=== PATIENT | male | born 1960 | race Caucasian/White ===

== ENCOUNTER 2023-01-06 08:57 | Outpatient (OUT) | payer OTHER, SELFPAY ==
[2023-01-06 09:20] LABS: Bilirubin Urine SMALL (NEGATIVE); Blood Urine LARGE (NEGATIVE); Clarity Urine CLEAR (CLEAR); Color Urine YELLOW (YELLOW); Glucose Urine UA >=1000 mg/dL (NEGATIVE); Ketones Urine >=80 mg/dL (NEGATIVE); Leukocyte Esterase Urine NEGATIVE (NEGATIVE); Nitrite Urine NEGATIVE (NEGATIVE); Protein Urine >=300 mg/dL (NEG/TRACE); Specific Gravity Urine >=1.030 (1.005-1.025); Urobilinogen Urine 0.2 EU/dL (0.2-1.0); pH Urine 5.5 (5.0-9.0)
[2023-01-06 09:21] LABS: Urine Microscopic Indicated YES
[2023-01-06 09:41] LABS: Basophils Absolute Auto 0.1 10^3/uL (0.0-0.1); Basophils Percent Auto 0.4 % (0.2-2.0); Eosinophils Absolute Auto 0.1 10^3/uL (0.0-0.7); Eosinophils Percent Auto 1.1 % (0.9-7.0); Hematocrit 50.5 % (42.0-54.0); Hemoglobin 17.6 g/dL (14.0-18.0); Immature Granulocytes Abs Auto 0.13 10^3/uL (0.00-0.03); Immature Granulocytes Pct Auto 1.1 % (0.0-0.5); Lymphocytes Absolute Auto 2.2 10^3/uL (1.2-3.8); Lymphocytes Percent Auto 18.5 % (20.5-60.0); Mean Corpuscular HGB Conc 34.9 g/dL (29.9-35.2); Mean Corpuscular Hemoglobin 32.1 pg (25.9-34.0); Mean Corpuscular Volume 92.2 fL (80.0-94.0); Mean Platelet Volume 9.6 fL (9.5-13.5); Monocytes Percent Auto 8.3 % (1.7-12.0); Neutrophils Absolute Auto 8.5 10^3/uL (1.4-6.5); Neutrophils Percent Auto 70.6 % (43.0-75.0); Platelet Count 279 10^3/uL (150-450); Red Blood Count 5.48 10^6/uL (4.70-6.10); Red Cell Distribution Width 12.1 % (11.0-15.0)
[2023-01-06 09:42] LABS: Bacteria Urine NONE SEEN #/HPF (NONE SEEN); WBC Urine 0-2 #/HPF (NONE SEEN)
[2023-01-06 09:43] LABS: Cast Seen? NONE SEEN #/LPF (NONE SEEN); Crystals Seen? None Seen #/HPF (None Seen); Mucus Urine NONE SEEN (NONE SEEN); Squamous Epithelial Cell Urine RARE #/LPF (NONE/RARE); Urine Culture Indicated NO
[2023-01-06 10:53] LABS: Alanine Aminotransferase 32 U/L (16-63); Albumin Globulin Ratio 0.7; Albumin Level 3.2 g/dL (3.4-5.0); Alkaline Phosphatase 103 U/L (46-116); Anion Gap 13.5; Aspartate Amino Transferase 13 U/L (15-37); BUN Creatinine Ratio 17.3; Bilirubin Total 0.5 mg/dL (0.2-1.0); Calcium 8.6 mg/dL (8.5-10.1); Carbon Dioxide 26.3 mmol/L (21.0-32.0); Chloride 98 mmol/L (98-107); Chol HDL Ratio 3.8; Cholesterol 184 mg/dL (<=200); Estimated GFR (African America >60 (>=60); Estimated GFR (Non-African Ame >60 (>=60); Globulin 4.4 g/dL; Glucose 262 mg/dL (74-106); HDL Cholesterol 48 mg/dL (40-60); LDL Cholesterol Calculated 120.6 mg/dL; Potassium 3.8 mmol/L (3.5-5.1); Sodium 134 mmol/L (136-145); Total Protein 7.6 g/dL (6.4-8.2); Triglycerides 77 mg/dL (<=150); VLDL CHOLESTEROL 15.4 mg/dL
[2023-01-06 11:08] LABS: Prostate Specific Antigen Scrn 1.03 ng/mL (<=4.00)
[2023-01-06 13:12] LABS: Estimated Average Glucose 263 mg/dL; Glycohemoglobin A1C 10.8 % (4.5-6.2)
== END 2023-01-06 08:58 | disposition home or self-care (01) ==
LOC: LAB 09:00
PROVIDERS: PCP Nurse Practitioner; Visit Provider Nurse Practitioner
DX: I10 Essential (primary) hypertension (principal); J44.9 Chronic obstructive pulmonary disease, unspecified; R10.9 Unspecified abdominal pain; Z12.5 Encounter for screening for malignant neoplasm of prostate; R73.9 Hyperglycemia, unspecified
CPT/HCPCS: 36415; 80053; 80061; 81001; 83036; 85025; G0103

== ENCOUNTER 2023-01-30 08:01 | Outpatient (OUT) | payer OTHER, SELFPAY ==
--- NOTE | 2023-01-30 08:04 | CT_ITS ---
[address] [address] Patient Name: VELMA AKHTAR MRN: [id number] date: 1960 Sex: M Assigned Patient Location: CT Current Patient Location: Accession/Order Number: [id number] Exam Date: 01/30/2023 08:06 Report Date: 01/31/2023 00:25 At the request of: ANI GUTIERREZ Procedure: CT lung screening low-dose EXAMINATION: CT lung screening low-dose HISTORY: Nicotine Dependence F17.210 COMPARISON: CT abdomen pelvis 03/03/2020, 04/10/2018 TECHNIQUE: Axial, Coronal, and Sagittal images were created without the administration of IV contrast material. Dose reduction techniques were achieved by using automated exposure control and/or adjustment of mA and/or kV according to patient size and/or use of iterative reconstruction technique. FINDINGS: LUNGS: 8 mm nodule within posterior lateral left costophrenic angle. No acute infiltrates, bronchiectasis, or significant chronic interstitial changes. PLEURA: No mass, effusion, or pneumothorax. VASCULATURE: No abnormality. MAKENZIE: No mass or pathologic adenopathy. MEDIASTINUM: No mass or pathologic adenopathy. CARDIAC: No enlargement, pericardial thickening, or significant calcification. AORTA: No aneurysm or dissection. CHEST WALL: No mass or axillary adenopathy BONES: No bone lesion or fracture. LIMITED ABDOMEN: No suspicious findings. Limited images of the upper abdomen. OTHER: Negative. CT/CT lung screening low-dose IMPRESSION: 1. Lung-RADS Category 4A- Suspicious. Findings for which additional diagnostic testing and/ or tissue sampling is recommended. 3 month LDCT; PET/CT may be used when there is a >= 8 mm solid component. 2. New 8 mm nodule within posterior lateral left costophrenic angle. This barely meets lower limits for PET imaging. Follow-up CT in 3 months is recommended; any increase in size at that time should prompt PET imaging. Electronically authenticated by: HEATHER HOBBS Date: 01/31/2023 00:25
--- NOTE | 2023-01-30 10:06 | RT_ITS ---
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 Findings were considered accurate and reproducible. Both pre- and post-bronchodilator values utilized for spirometry. Spirometry (based on pre-bronchodilator values): -FEV1/FVC: Reduced @ 61% -FEV1: Moderately reduced @ 72% -FVC: Normal @ 90% -There is no significant bronchodilator response. Lung volumes by plethysmography (based on pre-bronchodilator values): -RV: Increased @ 159% -TLC: Normal @ 115% -Airway resistance: Increased -Airway conductance: Decreased Diffusion capacity: -DLCO: Normal @ 94% when corrected for Hb 17.6g/dL Flow-volume loop: -Moderate obstructive pattern -Flattening of inspiratory limb pre-bronchodilator which improves post-bronchodilator Flow-pressure loop: ???Asthmatic pattern Impressions: -Spirometry suggests moderate obstruction. There is no bronchodilator response. An elevated RV suggests air trapping. The diffusion capacity is normal. Flattening of inspiratory limb could suggest a variable extrathoracic obstruction or simply due to difficulty following instructions/poor effort. Elevated hemoglobin suggests polycythemia. This study may respresent asthma-COPD overlap, or asthma with loss of a bronchodilator response. Clinical correlation required. Electronically Signed On 01-30-2023 17:05:32 EST by Derrell Rebolledo
[2023-01-30] MEDS: ALBUTEROL SULFATE 2.5 MG/3 ML VIAL NEB IH (10:23)
== END 2023-01-30 08:02 | disposition home or self-care (01) ==
LOC: CT 08:01
PROVIDERS: PCP Nurse Practitioner; Visit Provider Nurse Practitioner
DX: F17.210 Nicotine dependence, cigarettes, uncomplicated (principal); R91.1 Solitary pulmonary nodule
CPT/HCPCS: 71271; 94060; 94726; 94729; 99406

== ENCOUNTER 2023-04-14 07:16 | Outpatient (OUT) | payer OTHER, SELFPAY ==
--- OUTSIDE RECORDS SUMMARY | 2023-04-14 07:19 | XMS_ITS | CCD ---
Author Name Unknown Address [address] [place] [address] Organization [facility] Care Team Providers Care Mathematical Engineering Technician Name Role Phone AICHHOLZ, TILLER WORKER NILDA Admitting Unavailable AICHHOLZ, TILLER WORKER NILDA Attending Unavailable AICHHOLZ, TILLER WORKER NILDA Consulting Unavailable AICHHOLZ, TILLER WORKER NILDA Primary Care Unavailable AICHHOLZ, TILLER WORKER NILDA Primary Care Unavailable AICHHOLZ, TILLER WORKER NILDA Consulting Unavailable AICHHOLZ, TILLER WORKER NILDA Admitting Unavailable AICHHOLZ, TILLER WORKER NILDA Attending Unavailable AICHHOLZ, TILLER WORKER NILDA Admitting Unavailable AICHHOLZ, TILLER WORKER NILDA Attending Unavailable AICHHOLZ, TILLER WORKER NILDA Consulting Unavailable AICHHOLZ, TILLER WORKER NILDA Primary Care Unavailable RAFAELEBER, DR HEATHER Wagner Consulting Unavailable AICHHOLZ, TILLER WORKER NILDA Admitting Unavailable AICHHOLZ, TILLER WORKER NILDA Attending Unavailable AICHHOLZ, TILLER WORKER NILDA Primary Care Unavailable AICHHOLZ, TILLER WORKER NILDA Consulting Unavailable AICHHOLZ, TILLER WORKER NILDA Primary Care Unavailable NILL, DR ALEXANDER Consulting Unavailable NILL, DR ALEXANDER Admitting Unavailable NILL, DR ALEXANDER Attending Unavailable ZIEBER, DR HEATHER Wagner Consulting Unavailable REQUEST, DR LLANES LISTED Primary Care Unavaila ble NAIF LOMAX Admitting Unavailable NAIF LOMAX Attending Unavailable DAMI, NAIF Consulting Unavailable AICHHOLZ, TILLER WORKER NILDA Primary Care Unavailable NILL, DR ALEXANDER Consulting Unavailable NILL, DR ALEXANDER Admitting Unavailable NILL, DR ALEXANDER Attending Unavailable MILKA STEPHENS Consulting Unavailable AICHHOLZ, TILLER WORKER NILDA Primary Care Unavailable SHAIKH GALE Consulting Unavailable SHAIKH GALE Admitting Unavailable SHAIKH GALE Attending Unavailable Verna Ordoñez Unavailable NILDA CHEEMA Attending Unavailable NILDA CHEEMA Attending Unavailable Medications Current Medications Medication Drug Class(es) Dates Sig (Normalized) Sig (Original) [id number] 200 actuat albuterol 0.09 mg/actuat metered dose inhaler (1 source) beta2-Adrenergic Agonist Start: 12-03-2022 take 2 puff(s) by inhalation every four hours as needed for wheezing Albuterol Sulfate HFA 108 (90 Base) MCG/ACT 2 puffs Inhalation every 4 hrs prn SOB, wheezing for 15 days Nov, Active azithromycin 250 mg oral tablet (1 source) Macrolide Antimicrobial Start: 12-03-2022 Azithromycin 250 MG 2 tablet on first day, 1 tablet daily for 4 days Orally daily for 5 days Nov, Active predniSONE 20 mg oral tablet (1 source) Start: 12-03-2022 predniSONE 20 MG take 2 tabs po daily x 5 days Orally Once a day for 5 days Nov, Active Problems Active Problems Problem Classification Problem Date Documented Date Episodic/Chronic Chronic obstructive pulmonary disease and bronchiectasis (3 sources) Chronic obstructive pulmonary disease, unspecified; Translations: [Acute exacerbation of chronic obstructive airways disease] Onset: 04-18-2020 Chronic Diverticulosis and diverticulitis (5 sources) Diverticulosis of large intestine without perforation or abscess without bleeding; Translations: [Diverticulitis of intestine, part unspecified, without perforation or abscess without bleeding] Onset: 03-03-2020 Chronic Substance-related disorders (1 source) Nicotine dependence, cigarettes, uncomplicated; Translations: [NICOTINE DEPEND CIGARETTES UNCOMP] Onset: 01-11-2021 Chronic Unclassified (3 sources) LOW BACK PAIN, UNSPECIFIED; Translations: [LOW BACK PAIN, UNSPECIFIED] Onset: 01-11-2021 Unclassified (1 source) CONTACT W/AND (SUSP) EXPOS COVID-19; Translations: [CONTACT W/AND (SUSP) EXPOS COVID-19] Onset: 04-13-2020 Past or Other Problems Problem Classification Problem Date Documented Da te Episodic/Chronic Diabetes mellitus without complication (4 sources) Hyperglycemia, unspecified; Translations: [HYPERGLYCEMIA UNSPECIFIED] Onset: 07-17-2020 Episodic Gastrointestinal hemorrhage (5 sources) Hemorrhage of anus and rectum; Translations: [HEMORRHAGE OF ANUS AND RECTUM] Onset: 03-06-2020 Episodic Other and unspecified benign neoplasm (1 source) Benign neoplasm of rectosigmoid junction; Translations: [BENIGN NEOPLASM RECTOSIGMOID JUNCT] Onset: 04-18-2020 Episodic Other and unspecified benign neoplasm (1 source) Benign neoplasm of ascending colon; Translations: [BENIGN NEOPLASM OF ASCENDING COLON] Onset: 04-18-2020 Episodic Other and unspecified benign neoplasm (1 source) Benign neoplasm of descending colon; Translations: [BENIGN NEOPLASM OF DESCENDING COLON] Onset: 04-18-2020 Episodic Other and unspecified benign neoplasm (1 source) Benign neoplasm of cecum; Translations: [BENIGN NEOPLASM OF CECUM] Onset: 04-18-2020 Episodic Other and unspecified benign neoplasm (1 source) Polyp of colon; Translations: [POLYP OF COLON] Onset: 04-18-2020 Episodic Other gastrointestinal disorders (1 source) Change in bowel habit; Translations: [CHANGE IN BOWEL HABIT] Onset: 04-18-2020 Episodic Residual codes; unclassified (1 source) Family history of malignant neoplasm of digestive organs; Translations: [FAM HX MALIG NEOPLASM DIGESTIV ORGN] Onset: 04-18-2020 Episodic Unclassified (1 source) LOW BACK PAIN, UNSPECIFIED; Translations: [LOW BACK PAIN, UNSPECIFIED] Onset: 01-09-2021 Results Test Name Value Interpretation Reference Range Facility XR LSPINE 2_3 VIEWSon 2020 XR LSPINE 2_3 VIEWS EXAMINATION: XR LSPINE 2_3 VIEWS HISTORY: Pain ; chronic lumbar pain with intermittent numbness and tingling of legs COMPARISON: No relevant comparison available. FINDINGS: BONES: No fracture or spondylolisthesis. Moderate degenerative facet arthropathy L4-L5, L5-S1. DISC SPACES: Minimal narrowing L3 on 4, L5-S1. PARASPINOUS: Atherosclerotic disease of aorta without visible aneurysm. OTHER: Negative. IMPRESSION: 1. Mild degenerative disc disease and moderate degenerative facet arthropathy. Consider MRI for further evaluation. Electronically authenticated by: HEATHER HOBBS Date: 2021-01-09 11:33 Normal [facility] GLYCOHEMOGLOBIN A1Con 2020 ADA RECOMMENDATION ADA THERAPEUTIC TARGET 6.0 - 7.0 ACTION SUGGESTED > 7.0 Normal [facility] Comment on above: Performed By: #### A 1C #### [facility] [address] [place], [place] [address] Edward Fajardo Glucose [Mass/Vol] 123 mg/dL Normal [facility] Comment on above: Performed By: #### A 1C #### [facility] [address] [place], [place] [address] Edward Fajardo HbA1c (Bld) [Mass fraction] 5.9 % Normal <=6.0 [facility] Comment on above: Performed By: #### A 1C #### [facility] [address] [place], [place] [address] Edward Fajardo Ambulatory Clinical Summaryo n 04-19-2020 Ambulatory Clinical Summary {[id number] Normal [facility] General Surgery Office/Clini c Noteon 04-19-2020 General Surgery Office/Clinic Note HPI Staff One week follow up to discuss colonoscopy and pathology results. Complains of continued rectal bleeding and pain but states it has subsided since procedure. History of Present Illness s/p colonoscopy, found diverticulosis of desc/sigmoid colon, moderate; 7 polyps, largest approximately 2 cm; tubular adenomata and serrated adenoma; doing well, mild LLG pain and some blood in stools. Review of Systems ROS - Provider Constitutional: no fever, no sweats, no weight loss. Eyes: no glasses, no blurred vision, no visual loss. ENMT: no dentures, no hoarseness, no swallowing difficulties, no hearing loss, no ear infection(s), no nose bleeds. Cardiovascular: high blood pressure, no chest pain, regular heartbeat, no heart murmur. Respiratory: no shortness of breath, no cough, no asthma, no wheezing. Gastrointestinal: no nausea, no vomiting, no diarrhea, no constipation, mild blood in stool, no change in bowel habits, mild abdominal pain, no hepatitis. Genitourinary: no kidney stones, no urine infection, no dysuria. Musculoskeletal: no pain, no weakness. Skin: no changing moles, no rash, no skin lumps. Neurologic: no seizures, no epilepsy, no headache. Psychiatric: no emotional or psychiatric problem. Heme/Lymph: no bleeding problems, no anemia, no blood clots, no transfusions. Allergy/Immunologic: no swollen lymph nodes/glands, no IV drug abuse. Other: Additional ROS info: Except as noted in the above Review of Systems and in the History of Present Illness, all other systems have been reviewed and are negative or noncontributory. Assessment/Plan 1. Tubular adenoma of colon, (D12.6: Benign neoplasm of colon, unspecified)Serrated adenoma of colon total of 7, plan follow up colonoscopy in 3 years, high fiber diet and daily fiber supplement; follow up colonoscopy in 3 years, call sooner if problems/questions. 3. Diverticulosis (K57.90: Diverticulosis of intestine, part unspecified, without perforation or abscess without bleeding) see # 1 Follow-up No qualifying data available Problem List/Past Medical History Ongoing Abdominal pain, LLQ Blood glucose elevated BRBPR (bright red blood per rectum) Change in bowel habits Chronic obstructive pulmonary disease Diverticulosis Elevated blood pressure reading without diagnosis of hypertension Frequent loose stools History of diverticulitis Serrated adenoma of colon Tobacco user Tubular adenoma of colon Historical No qualifying data Procedure/Surgical History Colonoscopy (04/12/2020), Repair of umbilical hernia. Medications No active medications Allergies No Known Allergies No Known Medication Allergies Social History Alcohol Current, Beer, Liquor, Daily, 03/28/2020 Substance Abuse Current, Marijuana, Daily, 03/28/2020 Tobacco 10 or more cigarettes (1/2 pack or more)/day in last 30 days Tobacco Use:., 04/19/2020 Family History Primary malignant neoplasm of colon: Father. Normal [facility] Comment on above: Result Comment: Elec tronically Signed By: JOSE STRONG, Benjamin Cohn\Date and Time Signed: 04/19/20 14:49 EST Outside Colonoscopyon 2020 Outside Colonoscopy [id number] .[id number]:127 Normal [facility] Pathology Noteon 04-14-2020 Pathology Note [id number] .[id number]:127 Normal [facility] Lab Reportson 04-10-2020 Lab Reports [id number]. 00CD:127 Normal [facility] Covid-19 PCR (CVDTBH)on 03-18 EUA Statement SEE BELOW Normal [facility] Comment on above: Result Comment: This test is not yet approved or cleared by the [place] FDA. When there are no FDA-approved or cleared tests available, and other criteria are met, FDA can make tests available under an emergency access mechanism called an Emergency Use Authorization (EUA). The EUA for this test is supported by the [place] of Health and Human Service?s (HHS?s) declaration that circumstances exist to justify the emergency use of in vitro diagnostics for the detection and/or diagnosis of the virus that causes COVID-19. This EUA will remain in effect (meaning this test can be used) for the duration of the COVID-19 declaration justifying emergency of IVDs, unless it is terminated or revoked by FDA (after which the test may no longer be used). When diagnostic testing is negative, the possibility of a false negative should be considered in the context of a patients recent exposures and the presence of clinical signs and symptoms consistent with SARS-CoV-2. Performed By: #### C VDTB #### [facility] [address] [place] [address] Edward Fajardo SARS-CoV-2 (COVID-19) RNA ADELFO+probe Ql (Unsp spec) Not detected Normal NOT DETECTED [facility] Comment on above: Result Comment: This test is not yet approved or cleared by the [place] FDA. When there are no FDA-approved or cleared tests available, and other criteria are met, FDA can make tests available under an emergency access mechanism called an Emergency Use Authorization (EUA). The EUA for this test is supported by the [place] of Health and Human Service's (HHS's) declaration that circumstances exist to justify the emergency use of in vitro diagnostics for the detection and/or diagnosis of the virus that causes COVID-19. This EUA will remain in effect (meaning this test can be used) for the duration of the COVID-19 declaration justifying emergency of IVDs, unless it is terminated or revoked by FDA (after which the test may no longer be used). Performed By: #### C VDTBH #### [facility] [address] [place], [place] [address] Edward Fajardo Facesheeton 03-30-2020 Facesheet [id number] .[id number]:127 Normal [facility] Consent for Procedure/Surger yon 03-29-2020 Consent for Procedure/Surgery [id number] .[id number]:127 Normal [facility] Ambulatory Clinical Summaryo n 03-28-2020 Ambulatory Clinical Summary {[id number]}CD:[id number] Normal [facility] General Surgery Office/Clini c Noteon 03-28-2020 General Surgery Office/Clinic Note Chief Complaint referral for abdominal pain HPI Staff 59 year old male presents on consultation from Nilda Cheema NP for LLQ abdominal pain with bloody loose stools. Some intermittent nausea, denies vomiting. CT abdomen/pelvis completed 03/03/20 with sigmoid diverticulosis. Has been treated for diverticulitis in the past, most recent being 2019. Father with history of colon cancer. Mother with history of partial colon removal, patient is unsure the reason. History of Present Illness 59 yo male with h/o tobacco abuse, htn, daily alcohol use; reports several month h/o intermittent LLQ pain, ache, crampy at times, follow by loose stools and BRBPR, occasional nausea, no emesis; normal formed stools in between these episodes; abd/pelvic ct scan 02/2020 with sigmoid diverticulosis; treated with antibiotics in January for possible diverticulitis flare up; had episode of sigmoid diverticulitis 03/2018, confirmed by abd/pelvic ct scan; no previous endoscopy; only abdominal operation umbilical hernia repair; denies asa or NSAID use; no SBE prophylaxis; fmhx of colon ca in patient's father, dx in his 70's; patient's mother had colon surgery, unsure of reason; smokes 1 ppd for many years; daily alcohol and marijuana use. Review of Systems PHQ Score Initial Depression Screen Score: 0 ROS - Provider Constitutional: no fever, no sweats, no weight loss. Eyes: no glasses, no blurred vision, no visual loss. ENMT: no dentures, no hoarseness, no swallowing difficulties, no hearing loss, no ear infection(s), no nose bleeds. Cardiovascular: high blood pressure, no chest pain, regular heartbeat, no heart murmur. Respiratory: no shortness of breath, no cough, no asthma, yes wheezing. Gastrointestinal: no nausea, no vomiting, moderate diarrhea, no constipation, moderate blood in stool, yes change in bowel habits, mild abdominal pain, no hepatitis. Genitourinary: no kidney stones, no urine infection, no dysuria. Musculoskeletal: no pain, no weakness. Skin: no changing moles, no rash, no skin lumps. Neurologic: no seizures, no epilepsy, no headache. Psychiatric: no emotional or psychiatric problem. Heme/Lymph: no bleeding problems, no anemia, no blood clots, no transfusions. Allergy/Immunologic: no swollen lymph nodes/glands, no IV drug abuse. Other: Additional ROS info: Except as noted in the above Review of Systems and in the History of Present Illness, all other systems have been reviewed and are negative or noncontributory. Physical Exam Vitals & Measurements HR: 80(Peripheral) RR: 16 BP: 166/98 HT: 177.8 cm HT: 177.8 cm WT: 109.6 kg WT: 109.6 kg BMI: 34.67 HEENT: normal conjunctiva, sclera clear, no scleral icterus, EOM intact, PERRLA, oral mucosa moist without lesions. Neck: trachea midline, no mass, symmetric, no thyromegaly or nodules, no adenopathy Respiratory: lungs expiratory wheezes, respirations non labored. Cardiovascular: regular rate and rhythm, no murmur, no pedal edema or varicosities. Gastrointestinal: soft, non distended, mild tenderness, epigastrium and LLQ, no periotoneal signs; no masses, no palpable hernias, diastasis recti no, no hepatosplenomegaly; normal bs Lymphatic: no cervical adenopathy, no axillary adenopathy, no inguinal adenopathy. Musculoskeletal: normal gait, digits and nails without infection, nodes, cyanosis, clubbing. Skin: no rashes, no lesions, no ulcers, no subcutaneous nodules, induration. Psychiatric/Neuro: oriented to time, place, person, judgement normal, affect appropriate for age, insight intact, no focal deficits. Tests: , x-rays reviewed, review of old records completed, Discussed surgical options, risks, and possible complications with patient. Assessment/Plan 1. Change in bowel habits (R19.4: Change in bowel habit) plan colonoscopy under anesthesia for further evaluation, informed consent obtained. !! 2. BRBPR (bright red blood per rectum) (K62.5: Hemorrhage of anus and rectum) see # 1 3. Frequent loose stools (R19.7: Diarrhea, unspecified) see # 1 4. Abdominal pain, LLQ (R10.32: Left lower quadrant pain) see # 1 5. BMI 34.0-34.9,adult (Z68.34: Body mass index [BMI] 34.0-34.9, adult) recommend diet and exercise 6. Tobacco user (Z72.0: Tobacco use) We strongly recommend to quit tobacco use. Cigarette smoking harms nearly every organ of the body, causes many diseases, and reduces the health of smokers in general. Quitting smoking lowers your risk for smoking-related diseases and can add years to your life. We encourage you to visit www.smokefree.gov access to helpful resources including free telephone support. If you decide on prescription treatment to help you quit, your family doctor would be happy to provide these. Follow-up No qualifying data available Patient Education Exercise to Lose Weight, Mcqm-sx-Ewwy Problem List/Past Medical History Ongoing Abdominal pain, LLQ Blood glucose elevated BRBPR (bright red blood per rectum) Change in bowel habits Chronic obstructive pulmonary disease Diverticulosis Elevated blood pressure reading without diagnosis of hypertension Frequent loose stools History of diverticulitis Tobacco user Historical No qualifying data Procedure/Surgical History Repair of umbilical hernia. Medications No active medications Allergies No Known Allergies No Known Medication Allergies Social History Alcohol Current, Beer, Liquor, Daily, 03/28/2020 Substance Abuse Current, Marijuana, Daily, 03/28/2020 Tobacco 10 or more cigarettes (1/2 pack or more)/day in last 30 days Tobacco Use:., 03/28/2020 Family History Primary malignant neoplasm of colon: Father. Normal [facility] Comment on above: Result Comment: Elec tronically Signed By: JOSE STRONG, Benjamin Hill.br\Date and Time Signed: 03/28/20 15:42 EST Patient Educationon 03-28-19 21 Patient Education Exercise to Lose Weight Exercise and a healthy diet may help you lose weight. Your doctor may suggest specific exercises. EXERCISE IDEAS AND TIPS ? Choose low-cost things you enjoy doing, such as walking, bicycling, or exercising to workout videos. ? Take stairs instead of the elevator. ? Walk during your lunch break. ? Park your car further away from work or school. ? Go to a gym or an exercise class. ? Start with 5 to 10 minutes of exercise each day. Build up to 30 minutes of exercise 4 to 6 days a week. ? Wear shoes with good support and comfortable clothes. ? Stretch before and after working out. ? Work out until you breathe harder and your heart beats faster. ? Drink extra water when you exercise. ? Do not do so much that you hurt yourself, feel dizzy, or get very short of breath. Exercises that burn about 150 calories: ? Running 1 ? miles in 15 minutes. ? Playing volleyball for 45 to 60 minutes. ? Washing and waxing a car for 45 to 60 minutes. ? Playing touch football for 45 minutes. ? Walking 1 ? miles in 35 minutes. ? Pushing a stroller 1 ? miles in 30 minutes. ? Playing basketball for 30 minutes. ? Raking leaves for 30 minutes. ? Bicycling 5 miles in 30 minutes. ? Walking 2 miles in 30 minutes. ? Dancing for 30 minutes. ? Shoveling snow for 15 minutes. ? Swimming laps for 20 minutes. ? Walking up stairs for 15 minutes. ? Bicycling 4 miles in 15 minutes. ? Gardening for 30 to 45 minutes. ? Jumping rope for 15 minutes. ? Washing windows or floors for 45 to 60 minutes. Document Released: 04/05/2011 Document Revised: 05/25/2012 Document Reviewed: 04/05/2011 ExitCare? Patient Information ?2014 [employer]. Normal [facility] Physician Referralon 021 Physician Referral [id number] .[id number]:127 Normal [facility] Physician Referral [id number] .[id number]:127 Normal [facility] GLYCOHEMOGLOBIN A1Con 2019 Glucose [Mass/Vol] 123 mg/dL Normal [facility] Comment on above: Performed By: #### A 1C #### [facility] [address] [place], [place] [address] Edward Fajardo HbA1c (Bld) [Mass fraction] 5.9 % Normal <=6.0 [facility] Comment on above: Performed By: #### A 1C #### [facility] [address] [place] [id number] Edward Fajardo CT ABD/PELV W CONon 03-03-[address] ABD/PELV W CON EXAMINATION: CT ABD/PELV W CON HISTORY: Diverticulitis ; acute left lower quadrant pain, rectal bleeding for several months COMPARISON: CT abdomen and pelvis with contrast 04/10/2018 TECHNIQUE: CT images were created with 100 MLO Omnipaque 300 IV contrast. Axial, Coronal, and Sagittal images. Dose reduction techniques were achieved by using automated exposure control and/or adjustment of mA and/or kV according to patient size and/or use of iterative reconstruction technique. FINDINGS: LUNG BASES: No visible pulmonary or pleural disease. LIVER: No enlargement, atrophy, abnormal density, or significant focal lesion. BILIARY: No visible dilatation or calcification. PANCREAS: No lesion, fluid collection, ductal dilatation, or atrophy. SPLEEN: No enlargement or focal lesion. ADRENALS: No mass or enlargement. KIDNEYS: No mass, obstruction, or calcification. BOWEL/MESENTERY: Circumferential wall thickening and marked diverticulosis of the sigmoid colon. Mild fat stranding adjacent to the sigmoid colon. Normal appendix. Unremarkable small bowel and stomach. AORTA/VASCULAR: No aneurysm or dissection. RETROPERITONEUM: No mass or adenopathy. LYMPH NODES: No adenopathy. URINARY BLADDER: No visible focal wall thickening, lesion, or calculus. PELVIC ORGANS: No visible mass. Pelvic organs appropriate for patient age. ABDOMINAL WALL: No mass or hernia. BONES: No bony lesion or fracture. OTHER: Negative. IMPRESSION: 1. Sigmoid diverticulosis. Minimal stranding of the pericolonic fat may represent very mild acute diverticulitis or sequela of chronic diverticular changes. Findings are less than the acute diverticulitis changes seen on the prior study. Electronically authenticated by: HEATHER Minor: 2020-03-03 09:23 Normal [facility] CBC AUTO DIFFon 02-24-2020 BASO # 0.1 103/ul Normal 0.0-0.1 [facility] Comment on above: Performed By: #### C BC #### [facility] [address] [place], [place] [address] Edward Tana Basophils/100 WBC (Bld) 0.7 % Normal 0.2-2.0 [facility] Comment on above: Performed By: #### C BC #### [facility] [address] [place] [address] Edward Tana EO # 0.1 103/ul Normal 0.0-0.7 [facility] Comment on above: Performed By: #### C BC #### [facility] [address] [place] [address] Edward Tana Eosinophils/100 WBC (Bld) 1.2 % Normal 0.9-7.0 [facility] Comment on above: Performed By: #### C BC #### [facility] [address] [place] [address] Edward Tana Erythrocyte distribution width (RBC) [Ratio] 13.1 % Normal 11.0-15.0 [facility] [facility] Comment on above: Performed By: #### C BC #### [facility] [address] [place] [address] Edward Tana Hematocrit (Bld) [Volume fraction] 56.4 % Critically high 42.0-54.0 [facility] Comment on above: Performed By: #### C BC #### [facility] [address] [id number] Edward Tana Hemoglobin (Bld) [Mass/Vol] 19.2 g/dL Critically high 14.0-18.0 [facility] Comment on above: Performed By: #### C BC #### [facility] [address] [id number] Edward Tana IG # 0.06 10e3/ul Critically high 0.00-0.03 [facility] Comment on above: Performed By: #### C BC #### [facility] [address] [id number] Edward Tana IG % 0.6 % Critically high 0.0-0.5 [facility] Comment on above: Performed By: #### C BC #### [facility] [address] [id number] Edward Tana LYMPH # 2.3 103/ul Normal 1.2-3.8 [facility] Comment on above: Performed By: #### C BC #### [facility] [address] [place] [address] Edward Tana Lymphocytes/100 WBC (Bld) 23.2 % Normal 20.5-60.0 [facility] Comment on above: Performed By: #### C BC #### [facility] [address] [place] [address] Edward Tana MANUAL DIFF REQ NO Normal [facility] Comment on above: Performed By: #### C BC #### [facility] [address] [place] [address] Edward Tana MCH (RBC) [Entitic mass] 32.9 pg Normal 25.9-34.0 [facility] Comment on above: Performed By: #### C BC #### [facility] [address] [place] [address] Edward Tana MCHC (RBC) [Mass/Vol] 34.0 g/dL Normal 29.9-35.2 [facility] Comment on above: Performed By: #### C BC #### [facility] [address] [place] [address] Edward Tana MCV (RBC) [Entitic vol] 96.7 fL Critically high 80.0-94.0 [facility] Comment on above: Performed By: #### C BC #### [facility] [address] [place], [place] [address] Edward Tana MONO # 0.9 103/ul Critically high 0.3-0.8 [facility] Comment on above: Performed By: #### C BC #### [facility] [address] [place], [place] [address] Edward Tana Monocytes/100 WBC (Bld) 8.9 % Normal 1.7-12.0 [facility] Comment on above: Performed By: #### C BC #### [facility] [address] [place], [place] [address] Edward Fajardo NEUT # 6.6 103/ul Critically high 1.4-6.5 [facility] Comment on above: Performed By: #### C BC #### [facility] [address] [place], [place] [address] Edward Fajardo Neutrophils/100 WBC (Bld) 65.4 % Normal 43.0-75.0 [facility] Comment on above: Performed By: #### C BC #### [facility] [address] [place], [place] [address] Edwardfrankie Fajardo Platelet mean volume (Bld) [Entitic vol] 9.5 fL Normal 9.5-13.5 [facility] Comment on above: Performed By: #### C BC #### [facility] [address] [place] [address] Edwardfrankie Wilkinsen PLT 276 103/ul Normal 150-450 [facility] Comment on above: Performed By: #### C BC #### [facility] [address] [place], [place] [address] Edwardfrankie Wilkinsen RBC 5.83 106/ul Normal 4.70-6.10 [facility] Comment on above: Performed By: #### C BC #### [facility] [address] [place], [place] [address] Edwardfrankie Wilkinsen WBC 10.0 103/ul Normal 4.0-11.0 [facility] Comment on above: Performed By: #### C BC #### [facility] [address] [place], [place] [address] Edward Fajardo PROF 14(COMP METB)on 020 Albumin [Mass/Vol] 3.3 g/dL Critically low 3.5-5.0 [facility] Comment on above: Performed By: #### C MP #### [facility] [address] [place], [place] [address] Edward Tana Albumin/Globulin [Mass ratio] 0.8 {ratio} Normal [facility] Comment on above: Performed By: #### C MP #### [facility] [address] [place], [place] [address] Edward Tana ALP [Catalytic activity/Vol] 100 U/L Normal 38-126 [facility] Comment on above: Performed By: #### C MP #### [facility] [address] [id number] Edward Tana ALT [Catalytic activity/Vol] 34 U/L Normal 21-72 [facility] Comment on above: Performed By: #### C MP #### [facility] [address] [id number] Edward Tana Anion gap [Moles/Vol] 13.8 mmol/L Normal [facility] Comment on above: Performed By: #### C MP #### [facility] [address] [place] [address] Edward Tana AST [Catalytic activity/Vol] 23 U/L Normal 17-59 [facility] Comment on above: Performed By: #### C MP #### [facility] [address] [place] [address] Edward Tana Bilirubin [Mass/Vol] 0.2 mg/dL Normal 0.2-1.3 [facility] Comment on above: Performed By: #### C MP #### [facility] [address] [place], [place] [address] Edward Tana Calcium [Mass/Vol] 9.7 mg/dL Normal 8.4-10.2 [facility] Comment on above: Performed By: #### C MP #### [facility] [address] [place], [place] [address] Edward Tana Chloride [Moles/Vol] 105 mmol/L Normal 98-107 [facility] Comment on above: Performed By: #### C MP #### [facility] [address] [place], [place] [address] Edward Tana CO2 [Moles/Vol] 25.3 mmol/L Normal 22.0-30.0 [facility] Comment on above: Performed By: #### C MP #### [facility] [address] [id number] Edward Tana Creatinine [Mass/Vol] 0.91 mg/dL Normal 0.66-1.25 [facility] Comment on above: Performed By: #### C MP #### [facility] [address] [id number] Edward Tana EGFR-AF MICRONESIAN >60 Normal >=60 [facility] Comment on above: Performed By: #### C MP #### [facility] [address] [id number] Edward Tana EGFR-NON AF MICRONESIAN >60 Normal >=60 [facility] Comment on above: Performed By: #### C MP #### [facility] [address] [place] [address] Edward Tana Globulin (S) [Mass/Vol] 4.2 g/dL Normal [facility] Comment on above: Performed By: #### C MP #### [facility] [address] [address] Edward Tana Glucose [Mass/Vol] 127 mg/dL Critically high 74-106 [facility] Comment on above: Performed By: #### C MP #### [facility] [address] [place] [address] Edward Tana Potassium [Moles/Vol] 4.1 mmol/L Normal 3.4-5.0 [facility] Comment on above: Performed By: #### C MP #### [facility] [address] [place] [address] Edward Tana Protein [Mass/Vol] 7.5 g/dL Normal 6.1-8.2 [facility] Comment on above: Performed By: #### C MP #### [facility] [address] [place] [address] Edward Tana Sodium [Moles/Vol] 140 mmol/L Normal 137-145 [facility] Comment on above: Performed By: #### C MP #### [facility] [address] [place] [address] Edward Tana Urea nitrogen [Mass/Vol] 12.0 mg/dL Normal 9.0-20.0 [facility] Comment on above: Performed By: #### C MP #### [facility] [address] [place], [place] [address] Edwardfrankie Fajardo Urea nitrogen/Creatinine [Mass ratio] 13.2 mg/mg Normal [facility] Comment on above: Performed By: #### C MP #### [facility] [address] [place], [place] [address] Edward Tana CBC AUTO DIFFon 02-01-2020 BASO # 0.1 103/ul Normal 0.0-0.1 [facility] Comment on above: Performed By: #### C BC #### [facility] [address] [place], [place] [address] Edward Tana Basophils/100 WBC (Bld) 0.4 % Normal 0.2-2.0 [facility] Comment on above: Performed By: #### C BC #### [facility] [address] [place] [address] Edward Tana EO # 0.1 103/ul Normal 0.0-0.7 [facility] Comment on above: Performed By: #### C BC #### [facility] [address] [place], [place] [address] Edward Tana Eosinophils/100 WBC (Bld) 0.9 % Normal 0.9-7.0 [facility] Comment on above: Performed By: #### C BC #### [facility] [address] [place] [address] Edward Tana Erythrocyte distribution width (RBC) [Ratio] 13.3 % Normal 11.0-15.0 [facility] Comment on above: Performed By: #### C BC #### [facility] [address] [place], [place] [address] Edward Tana Hematocrit (Bld) [Volume fraction] 55.7 % Critically high 42.0-54.0 [facility] Comment on above: Performed By: #### C BC #### [facility] [address] [place], [place] [address] Edward Tana Hemoglobin (Bld) [Mass/Vol] 18.9 g/dL Critically high 14.0-18.0 [facility] Comment on above: Performed By: #### C BC #### [facility] [address] [place], [place] [address] Edwardfrankie Fajardo IG # 0.05 10e3/ul Critically high 0.00-0.03 [facility] Comment on above: Performed By: #### C BC #### [facility] [address] [place] [address] Edward Tana IG % 0.4 % Normal 0.0-0.5 [facility] Comment on above: Performed By: #### C BC #### [facility] [address] [place] [address] Edward Tana LYMPH # 1.5 103/ul Normal 1.2-3.8 [facility] Comment on above: Performed By: #### C BC #### [facility] [address] [place] [address] Edward Fajardo Lymphocytes/100 WBC (Bld) 10.8 % Critically low 20.5-60.0 [facility] Comment on above: Performed By: #### C BC #### [facility] [address] [place], [place] [address] Edward Fajardo MANUAL DIFF REQ NO Normal [facility] Comment on above: Performed By: #### C BC #### [facility] [address] [place] [address] Edwardfrankie Wilkinsen MCH (RBC) [Entitic mass] 33.1 pg Normal 25.9-34.0 [facility] Comment on above: Performed By: #### C BC #### [facility] [address] [place] [address] Edwardfrankie Fajardo MCHC (RBC) [Mass/Vol] 33.9 g/dL Normal 29.9-35.2 [facility] Comment on above: Performed By: #### C BC #### [facility] [address] [place] [address] Edward Tana MCV (RBC) [Entitic vol] 97.5 fL Critically high 80.0-94.0 [facility] Comment on above: Performed By: #### C BC #### [facility] [address] [place], [place] [address] Edward Tana MONO # 1.1 103/ul Critically high 0.3-0.8 [facility] Comment on above: Performed By: #### C BC #### [facility] [address] [place], [place] [address] Edward Tana Monocytes/100 WBC (Bld) 8.0 % Normal 1.7-12.0 [facility] Comment on above: Performed By: #### C BC #### [facility] [address] [id number] Edward Tana NEUT # 11.1 103/ul Critically high 1.4-6.5 [facility] Comment on above: Performed By: #### C BC #### [facility] [address] [id number] Edward Tana Neutrophils/100 WBC (Bld) 79.5 % Critically high 43.0-75.0 [facility] Comment on above: Performed By: #### C BC #### [facility] [address] [place], [place] [address] Edwardfrankie Wilkinsen Platelet mean volume (Bld) [Entitic vol] 10.1 fL Normal 9.5-13.5 [facility] Comment on above: Performed By: #### C BC #### [facility] [address] [address] Edward Tana PLT 280 103/ul Normal 150-450 [facility] Comment on above: Performed By: #### C BC #### [facility] [address] [address] Edward Tana RBC 5.71 106/ul Normal 4.70-6.10 [facility] Comment on above: Performed By: #### C BC #### [facility] [address] [address] Edward Tana WBC 13.9 103/ul Critically high 4.0-11.0 [facility] Comment on above: Performed By: #### C BC #### [facility] [address] [place] [address] Edward Fajardo PROF 14(COMP METB)on 020 Albumin [Mass/Vol] 3.0 g/dL Critically low 3.5-5.0 [facility] Comment on above: Performed By: #### C MP #### [facility] [address] [place], [place] [address] Edward Tana Albumin/Globulin [Mass ratio] 0.7 {ratio} Normal [facility] Comment on above: Performed By: #### C MP #### [facility] [address] [place], [place] [address] Edward Tana ALP [Catalytic activity/Vol] 86 U/L Normal 38-126 [facility] Comment on above: Performed By: #### C MP #### [facility] [address] [place], [place] [address] Edward Tana ALT [Catalytic activity/Vol] 49 U/L Normal 21-72 [facility] Comment on above: Performed By: #### C MP #### [facility] [address] [place], [place] [address] Edward Tana Anion gap [Moles/Vol] 11.2 mmol/L Normal [facility] Comment on above: Performed By: #### C MP #### [facility] [address] [place], [place] [address] Edward Tana AST [Catalytic activity/Vol] 28 U/L Normal 17-59 [facility] Comment on above: Performed By: #### C MP #### [facility] [address] [place], [place] [address] Edward Tana Bilirubin [Mass/Vol] 0.6 mg/dL Normal 0.2-1.3 [facility] Comment on above: Performed By: #### C MP #### [facility] [address] [place], [place] [address] Edward Tana Calcium [Mass/Vol] 9.4 mg/dL Normal 8.4-10.2 [facility] Comment on above: Performed By: #### C MP #### [facility] [address] [place], [place] [address] Edward Tana Chloride [Moles/Vol] 102 mmol/L Normal 98-107 [facility] Comment on above: Performed By: #### C MP #### [facility] [address] [place], [place] [address] Edward Tana CO2 [Moles/Vol] 28.1 mmol/L Normal 22.0-30.0 [facility] Comment on above: Performed By: #### C MP #### [facility] [address] [id number] Edward Tana Creatinine [Mass/Vol] 0.70 mg/dL Normal 0.66-1.25 [facility] Comment on above: Performed By: #### C MP #### [facility] [address] [place], [place] [address] Edward Tana EGFR-AF MICRONESIAN >60 Normal >=60 [facility] Comment on above: Performed By: #### C MP #### [facility] [address] [place], [place] [address] Edward Tana EGFR-NON AF MICRONESIAN >60 Normal >=60 [facility] Comment on above: Performed By: #### C MP #### [facility] [address] [id number] Edward Tana Globulin (S) [Mass/Vol] 4.6 g/dL Normal [facility] Comment on above: Performed By: #### C MP #### [facility] [address] [place], [place] [address] Edward Tana Glucose [Mass/Vol] 126 mg/dL Critically high 74-106 [facility] Comment on above: Performed By: #### C MP #### [facility] [address] [place], [place] [address] Edward Tana Potassium [Moles/Vol] 3.3 mmol/L Critically low 3.4-5.0 [facility] Comment on above: Performed By: #### C MP #### [facility] [address] [place] [address] Edward Tana Protein [Mass/Vol] 7.6 g/dL Normal 6.1-8.2 [facility] Comment on above: Performed By: #### C MP #### [facility] [address] [place], [place] [address] Edward Tana Sodium [Moles/Vol] 138 mmol/L Normal 137-145 [facility] Comment on above: Performed By: #### C MP #### [facility] [address] [place], [place] [address] Edward Tana Urea nitrogen [Mass/Vol] 9.0 mg/dL Normal 9.0-20.0 [facility] Comment on above: Performed By: #### C MP #### [facility] [address] [place], [place] [address] Edward Tana Urea nitrogen/Creatinine [Mass ratio] 12.9 mg/mg Normal [facility] Comment on above: Performed By: #### C MP #### [facility] [address] [place], [place] [address] Edward Tana Vital Signs Date Time Vital Sign Value Performing Clinician Facility 12-03-2022 11:30-0400 Body height 177.8 cm Verna Orodñez Other [facility] Other 12-03-2022 11:30-0400 Body mass index (BMI) [Ratio] 35.55 kg/m2 Verna Ordoñez Other [facility] Other 12-03-2022 11:30-0400 Body temperature 97.3 [degF] Verna Ordoñez Other [facility] Other 12-03-2022 11:30-0400 Body weight 112.4 kg Verna Ordoñez Other [facility] Other 12-03-2022 11:30-0400 Diastolic blood pressure 98 mm[Hg] Verna Ordoñez Other [facility] Other 12-03-2022 11:30-0400 Respiratory rate 18 /min Verna Ordoñez Other [facility] Other 12-03-2022 11:30-0400 SaO2% (BldA) [Mass fraction] 93 % Verna Ordoñez Other [facility] Other 12-03-2022 11:30-0400 Systolic blood pressure 148 mm[Hg] Verna Ordoñez Other [facility] Other Encounters Encounter Date Encounter Type Care Provider Facility Start: 03-31-2023 End: 03-31-2023 ambulatory NILDA AICHHOLZ Not Available Start: 02-17-2023 End: 02-17-2023 ambulatory NILDA AICHHOLZ Not Available Start: 12-03-2022 End: 12-03-2022 ambulatory Verna Ordoñez Other [facility] Other Start: 12-03-2022 Office outpatient ne w 30 minutes Verna Ordoñez [facility] Start: 01-09-2021 End: 01-09-[address] HEATHER HOBBS Facility:[facility] Start: 07-17-2020 End: 07-18-2020 ambulatory [employer] NILDA AICHHOLZ Facility:[facility] Start: 04-13-2020 Encounter for preprocedural laboratory examination DR BENJAMIN THURMAN [facility] Start: 04-12-2020 End: 04-12-2020 ambulatory [employer] WORK[employer] NILDA AICHHOLZ Facility:[facility] Start: 04-08-2020 End: 04-09-2020 ambulatory [employer] WORKER NILDA AICHHOLZ Facility:[facility] Start: 04-08-2020 End: 04-09-2020 Encounter for preprocedural laboratory examination [employer] NILDA AICHHOLZ Facility:[facility] Start: 03-15-2020 End: 03-16-2020 ambulatory [employer] NILDA AICHHOLZ Facility:[facility] Start: 03-03-2020 End: 03-04-2020 ambulatory [employer] WORK[employer] NILDA AICHHOLZ Facility:[facility] Start: 02-24-2020 End: 02-25-2020 ambulatory [employer] WORK[employer] NILDA AICHHOLZ Facility:[facility] Start: 02-01-2020 End: 02-02-2020 ambulatory [employer] WORK[employer] NILDA CHEEMA Facility:[facility] Payers Date Payer Category Payer Unknown [id number] 2.16.84 [id number] 1961 Unknown [id number] 2.16.84 [id number] 1961 Unknown [id number] 2.16.84 [id number] 1961 Unknown [id number] 2.16.84 [id number] 1961 Unknown [id number] 2.16.84 [id number] 1961 Unknown [id number] 2.16.84 [id number] 1961 Unknown [id number] 2.16.84 [id number] 1961 Unknown [id number] 2.16.84 [id number] 1961 Unknown [id number] 2.16.84 [id number] 1961 Unknown [id number] 2.16.840 [id number] 1959 Private Health Insurance [id number] 1959 Unknown [id number] Social History Date Type Detail Facility Unknown if ever smoked [facility] Other Sex Assigned At Sex Assigned At Bir th [facility] Other Evaluation note 12-03-2022 Note Date & Type Note Facility 12-03-2022 Evaluation note Encounter Date Diagnosis Assessment Notes Nov, COPD exacerbation (ICD-10 - J44.1) Patient declines COVID testing. Discussed with patient exam is consistent with COPD exacerbation. Discussed likely started as viral URI. Covering with azithromycin given comorbidity of COPD. Finish entire course. May use Mucinex DM [id number] . Prednisone burst and as needed albuterol inhaler sent. Follow-up with PCP for recheck in the next 5 to 7 days, sooner if significantly worsening. Discussed with chronic condition of COPD is important he follows up regularly with PCP. Encouraged to quit smoking. Patient verbalized understanding of treatment plan. [facility] Other Clinical Note 04-12-2020 Note Date & Type Note Facility 04-12-2020 Note OPERATIVE NOTE OPERATION DATE: 04/12/2020 PREOPERATIVE DIAGNOSES: 1. Intermittent rectal bleeding. 2. History of diverticular disease. 3. Family history of colon cancer. POSTOPERATIVE DIAGNOSES: 1. Multiple colon polyps. 2. Moderate descending and sigmoid diverticulosis. PROCEDURE NAME: Colonoscopy to cecum with hot snare polypectomy x6. SURGEON: Benjamin Thurman M.D. ANESTHESIA: Monitored anesthesia care. ESTIMATED BLOOD LOSS: Less than 1 mL. INDICATIONS AND CONSENT: Patient is a 59-year-old male with history of previous diverticulitis. He has had intermittent rectal bleeding. He also has a family history of colon cancer. He has never had a colonoscopy. Indications, risks, benefits and alternatives of proceeding with colonoscopy were explained extensively to the patient including risks of bleeding, colon perforation or anesthetic complications. All of his questions were answered. Informed consent was obtained. PROCEDURE: Patient was brought to the operating room and placed in the left lateral decubitus position. Monitored anesthesia care was provided. Rectal exam was performed which showed no masses or blood. The scope was inserted into the anal canal under direct visualization and was advanced. With the aid of abdominal compression, it was advanced to the cecum where cecal markings were clearly identified. There was noted to be a redundant colon with spasm. There was noted to be a good prep with some liquid stool throughout the colon. Upon withdrawal of the scope, the mucosal surfaces were carefully examined. Within the ascending colon, there was noted to be a 7 mm irregular sessile polyp that was removed with snare with minimal cautery. It was not able to be sucked up, so it was brought out in a Hein net. At 80 cm, there was noted to be a 5 mm polyp and an adjacent 7 mm polyp. These were removed with snare with electrocautery as well. At 60 cm there was noted to be a 1.5 cm polyp. This was removed with snare with electrocautery with good hemostasis. A 30 cm, there was noted to be a redundant large fold of the colon which was hyperemic and irritated with some inflammation. This was biopsied several times with cold biopsy forceps with good hemostasis. At 25 cm there was noted to be a 5 mm polyp that was on a redundant mobile fold. This was removed with snare electrocautery with good hemostasis. Within the rectum was noted to be an additional 5 mm polyp that was sessile that was removed with snare and electrocautery with good hemostasis. There was moderate sigmoid diverticulosis. No significant hemorrhoidal disease. The scope was then withdrawn. The patient tolerated the procedure well and was sent to Recovery Room in good condition. [facility] Signed and Approved by: DR BENJAMIN THURMAN . 04/13/2020 09:02:00 [facility] Summary Purpose Family History No Family History Records FoundNo Family History Records FoundNo Family History Records Found Advance Directives No Advanced Directives Records FoundNo Advanced Directives Records FoundNo Advanced Directives Records Found Additional Source Comments (unrecognized sect ion and content) No Status Records FoundNo Status Records FoundNo Status Records Found INFORMATION SOURCE (unrecogn ized section and content) DATE CREATED AUTHOR 04/20/2020 [facility] DATE CREATED AUTHOR AUTHOR'S ORGANIZ ATION 01/12/2021 [facility] DATE CREATED AUTHOR AUTHOR'S ORGANIZ ATION 04/01/2023 [facility] EPIC REASON FOR VISIT (unrecogniz ed section and content) COUGH, CONGESTION, OUT OF BR EATH FOR RECORDS PERTAINING TO PATIENTS WHO ARE OR HAVE BEEN ENROLLED IN A CHEMICAL DEPENDENCY/SUBSTANCEABUSE PROGRAM, SOME INFORMATION MAY BE OMITTED. This clinical summary was aggregated from multiple sources. Caution should be exercised in using it in the provision of clinical care. This summary normalizes information from multiple sources, and as a consequence, information in this document may materially change the coding, format and clinical context of patient data. In addition, data may be omitted in some cases. CLINICAL DECISIONS SHOULD BE BASED ON THE PRIMARY CLINICAL RECORDS. [employer] provides no warranty or guarantee of the accuracy or completeness of information in this document.
[2023-04-14 08:04] LABS: Basophils Absolute Auto 0.1 10^3/uL (0.0-0.1); Basophils Percent Auto 0.6 % (0.2-2.0); Eosinophils Absolute Auto 0.1 10^3/uL (0.0-0.7); Eosinophils Percent Auto 1.2 % (0.9-7.0); Hematocrit 52.7 % (42.0-54.0); Hemoglobin 17.5 g/dL (14.0-18.0); Immature Granulocytes Abs Auto 0.06 10^3/uL (0.00-0.03); Immature Granulocytes Pct Auto 0.5 % (0.0-0.5); Lymphocytes Absolute Auto 2.7 10^3/uL (1.2-3.8); Lymphocytes Percent Auto 22.8 % (20.5-60.0); Mean Corpuscular HGB Conc 33.2 g/dL (29.9-35.2); Mean Corpuscular Hemoglobin 31.8 pg (25.9-34.0); Mean Corpuscular Volume 95.8 fL (80.0-94.0); Mean Platelet Volume 9.5 fL (9.5-13.5); Monocytes Absolute Auto 0.9 10^3/uL (0.3-0.8); Monocytes Percent Auto 7.4 % (1.7-12.0); Neutrophils Absolute Auto 7.9 10^3/uL (1.4-6.5); Neutrophils Percent Auto 67.5 % (43.0-75.0); Platelet Count 321 10^3/uL (150-450); Red Cell Distribution Width 12.5 % (11.0-15.0); White Blood Count 11.7 10^3/uL (4.0-11.0)
[2023-04-14 08:20] LABS: Creatinine Urine Random 77.88 mg/dL (20.00-300.00); Microalbum Creatinine Ratio Ur 268.3 mg/g (0.0-29.9); Microalbumin Urine Random 20.9 mg/dL (<=30.0)
[2023-04-14 08:21] LABS: Alanine Aminotransferase 40 U/L (16-63); Albumin Globulin Ratio 0.9; Albumin Level 3.5 g/dL (3.4-5.0); Alkaline Phosphatase 98 U/L (46-116); Anion Gap 14.9; Aspartate Amino Transferase 18 U/L (15-37); BUN Creatinine Ratio 15.7; Bilirubin Total 0.2 mg/dL (0.2-1.0); Calcium 9.1 mg/dL (8.5-10.1); Carbon Dioxide 26.5 mmol/L (21.0-32.0); Chloride 98 mmol/L (98-107); Chol HDL Ratio 4.2; Cholesterol 185 mg/dL (<=200); Estimated GFR (African America >60 (>=60); Estimated GFR (Non-African Ame >60 (>=60); Glucose 156 mg/dL (74-106); HDL Cholesterol 44 mg/dL (40-60); LDL Cholesterol Calculated 117.6 mg/dL; Potassium 4.4 mmol/L (3.5-5.1); Sodium 135 mmol/L (136-145); Total Protein 7.5 g/dL (6.4-8.2); Triglycerides 117 mg/dL (<=150); VLDL CHOLESTEROL 23.4 mg/dL
[2023-04-14 08:21] LABS: Bilirubin Urine NEGATIVE (NEGATIVE); Blood Urine LARGE (NEGATIVE); Clarity Urine CLEAR (CLEAR); Color Urine LT. YELLOW (YELLOW); Glucose Urine UA NEGATIVE (NEGATIVE); Ketones Urine NEGATIVE (NEGATIVE); Leukocyte Esterase Urine NEGATIVE (NEGATIVE); Nitrite Urine NEGATIVE (NEGATIVE); Protein Urine 100 mg/dL (NEG/TRACE); Specific Gravity Urine 1.025 (1.005-1.025); Urobilinogen Urine 0.2 EU/dL (0.2-1.0); pH Urine 5.5 (5.0-9.0)
[2023-04-14 08:35] LABS: Urine Microscopic Indicated YES
[2023-04-14 08:45] LABS: Estimated Average Glucose 200 mg/dL; Glycohemoglobin A1C 8.6 % (4.5-6.2)
[2023-04-14 08:54] LABS: Bacteria Urine TRACE #/HPF (NONE SEEN); Cast Seen? NONE SEEN #/LPF (NONE SEEN); Crystals Seen? None Seen #/HPF (None Seen); Mucus Urine NONE SEEN (NONE SEEN); Squamous Epithelial Cell Urine FEW #/LPF (NONE/RARE); WBC Urine NONE SEEN #/HPF (NONE SEEN)
[2023-04-14 08:55] LABS: Urine Culture Indicated NO
== END 2023-04-14 07:17 | disposition home or self-care (01) ==
PROVIDERS: PCP Nurse Practitioner; Visit Provider Nurse Practitioner
DX: E11.9 Type 2 diabetes mellitus without complications (principal); I10 Essential (primary) hypertension
CPT/HCPCS: 36415; 80053; 80061; 81001; 82043; 82570; 83036; 85025

== ENCOUNTER 2023-05-05 07:08 | Outpatient (OUT) | payer OTHER, SELFPAY ==
--- OUTSIDE RECORDS SUMMARY | 2023-05-05 07:11 | XMS_ITS | CCD ---
Author Name Unknown Address [address] [place] [address] Organization [facility] Care Team Providers Care Drag Down Name Role Phone AICHHOLZ, TRAVEL CLERK ANI Admitting Unavailable AICHHOLZ, TRAVEL CLERK ANI Attending Unavailable AICHHOLZ, TRAVEL CLERK ANI Consulting Unavailable AICHHOLZ, TRAVEL CLERK ANI Primary Care Unavailable AICHHOLZ, TRAVEL CLERK ANI Primary Care Unavailable AICHHOLZ, TRAVEL CLERK ANI Consulting Unavailable AICHHOLZ, TRAVEL CLERK ANI Admitting Unavailable AICHHOLZ, TRAVEL CLERK ANI Attending Unavailable AICHHOLZ, TRAVEL CLERK ANI Admitting Unavailable AICHHOLZ, TRAVEL CLERK ANI Attending Unavailable AICHHOLZ, TRAVEL CLERK ANI Consulting Unavailable AICHHOLZ, TRAVEL CLERK ANI Primary Care Unavailable ZIEBCAMPBELL, DR HEATHER Wagner Consulting Unavailable AICHHOLZ, TRAVEL CLERK ANI Admitting Unavailable AICHHOLZ, TRAVEL CLERK ANI Attending Unavailable AICHHOLZ, TRAVEL CLERK ANI Primary Care Unavailable AICHHOLZ, TRAVEL CLERK ANI Consulting Unavailable AICHHOLZ, TRAVEL CLERK ANI Primary Care Unavailable NILL, DR ALEXANDER Consulting Unavailable NILL, DR ALEXANDER Admitting Unavailable NILL, DR ALEXANDER Attending Unavailable ZIEBER, DR HEATHER Wagner Consulting Unavailable REQUEST, DR LALNES LISTED Primary Care Unavaila ble NAIF OLMAX Admitting Unavailable NAIF LOMAX Attending Unavailable DAMI, NAIF Consulting Unavailable AICHHOLZ, TRAVEL CLERK ANI Primary Care Unavailable NILL, DR ALEXANDER Consulting Unavailable NILL, DR ALEXANDER Admitting Unavailable NILL, DR ALEXANDER Attending Unavailable MILKA STEPHENS Consulting Unavailable AICHHOLZ, TRAVEL CLERK ANI Primary Care Unavailable SHAIKH GALE Consulting Unavailable BALJINDER, WILLIAMSON Admitting Unavailable SHAIKH GALE Attending Unavailable Verna Ordoñez Unavailable AICHHOLZ, ANI Attending Unavailable AICHHOLZ, ANI Attending Unavailable ANI GUTIERREZ Referring Unavailable SHIRLEY ESTRADA Attending Unavailable ANI GUTIERREZ Referring Unavailable Benjamin THURMAN Attending Unavailable Allergies Allergy Classification Reported Allergen(s) Allergy Type Date of Onset Reaction(s) Facility (1 source) No Known Medication Allergies; Translations: [No Known Medication Allergies] Propensity to adverse reactions (disorder) [facility] Repository Medications Current Medications Medication Drug Class(es) Dates Sig (Normalized) Sig (Original) [id number] 200 actuat albuterol 0.09 mg/actuat metered dose [...] Test Name Value Interpretation Reference Range Facility Physician Referralon 024 Physician Referral [id number] Normal [facility] XR LSPINE 2_3 VIEWSon 2020 XR LSPINE [...] by: HEATHER HOBBS Date: 2021-01-09 11:33 Normal [facility] GLYCOHEMOGLOBIN A1Con 2020 ADA RECOMMENDATION ADA THERAPEUTIC TARGET 6.0 - 7.0 ACTION SUGGESTED > 7.0 Normal [facility] Comment on above: Performed By: #### A 1C #### [facility] [address] [address] Edward Fajardo Glucose [Mass/Vol] 123 mg/dL Normal [facility] Comment on above: Performed By: #### A 1C #### [facility] [address], [place] [address] Edward Fajardo HbA1c (Bld) [Mass fraction] 5.9 % Normal <=6.0 [facility] Comment on above: Performed By: #### A 1C #### [facility] [address] [id number] Edward Fajardo Covid-19 PCR (CVDTBH)on 03-18 EUA Statement SEE BELOW Normal [facility] Comment on above: Result Comment: This test is not yet approved or cleared by the [place] FDA. When there are no FDA-approved or cleared tests available, and other criteria are met, FDA can make tests available under an emergency access mechanism called an Emergency Use Authorization (EUA). The EUA for this test is supported by the [place] of Health and Human Service?s (HHS?s) declaration [...] consistent with SARS-CoV-2. Performed By: #### C VDTBH #### [facility] [address] [place] [address] Edward Fajardo SARS-CoV-2 (COVID-19) RNA ADELFO+probe Ql (Unsp spec) Not detected Normal NOT DETECTED [facility] Comment on above: Result Comment: This test is not yet approved or cleared by the [place] FDA. When there are no FDA-approved or cleared tests available, and other criteria are met, FDA can make tests available under an emergency access mechanism called an Emergency Use Authorization (EUA). The EUA for this test is supported by the [place] Rn of Health and Human Service's (HHS's) declaration [...] used). Performed By: #### C VDTBH #### [facility] [address] [place], [place] [id number] Edward Fajardo GLYCOHEMOGLOBIN A1Con 2019 Glucose [Mass/Vol] 123 mg/dL Normal [facility] Comment on above: Performed By: #### A 1C #### [facility] [address] [place], [place] [id number] Edward Fajardo HbA1c (Bld) [Mass fraction] 5.9 % Normal <=6.0 [facility] Comment on above: Performed By: #### A 1C #### [facility] [address] [place], [place] [id number] Edward Fajardo CT ABD/PELV W CONon 03-03-20 [...] the prior study. Electronically authenticated by: HEATHER HOBBS Date: 2020-03-03 09:23 Normal [facility] CBC AUTO DIFFon 02-24-2020 BASO # 0.1 103/ul Normal 0.0-0.1 [facility] Comment on above: Performed By: #### C BC #### [facility] [address], [place] [address] Edward Tana Basophils/100 WBC (Bld) 0.7 % Normal 0.2-2.0 [facility] Comment on above: Performed By: #### C BC #### [facility] [address], [place] [address] Edward Tana EO # 0.1 103/ul Normal 0.0-0.7 [facility] Comment on above: Performed By: #### C BC #### [facility] [address] [place] [address] Edward Tana Eosinophils/100 WBC (Bld) 1.2 % Normal 0.9-7.0 [facility] Comment on above: Performed By: #### C BC #### [facility] [address] [place], [place] [id number] Edward Tana Erythrocyte distribution width (RBC) [Ratio] 13.1 % Normal 11.0-15.0 [facility] Comment on above: Performed By: #### C BC #### [facility] [address] [place] [address] Edward Tana Hematocrit (Bld) [Volume fraction] 56.4 % Critically high 42.0-54.0 [facility] Comment on above: Performed By: #### C BC #### [facility] [address] [place] [address] Edward Tana Hemoglobin (Bld) [Mass/Vol] 19.2 g/dL Critically high 14.0-18.0 [facility] Comment on above: Performed By: #### C BC #### [facility] [address] [place] [address] Edward Tana IG # 0.06 10e3/ul Critically high 0.00-0.03 [facility] Comment on above: Performed By: #### C BC #### [facility] [address] [place] [address] Edward Tana IG % 0.6 % Critically high 0.0-0.5 [facility] Comment on above: Performed By: #### C BC #### [facility] [address] [place] [address] Edward Tana LYMPH # 2.3 103/ul Normal 1.2-3.8 [facility] Comment on above: Performed By: #### C BC #### [facility] [address] [place] [address] Edward Tana Lymphocytes/100 WBC (Bld) 23.2 % Normal 20.5-60.0 [facility] Comment on above: Performed By: #### C BC #### [facility] [address] [place], [place] [id number] Edward Tana MANUAL DIFF REQ NO Normal [facility] Comment on above: Performed By: #### C BC #### [facility] [address] [place] [address] Edward Tana MCH (RBC) [Entitic mass] 32.9 pg Normal 25.9-34.0 [facility] Comment on above: Performed By: #### C BC #### [facility] [address] [place], [place] [id number] Edward Fajardo MCHC (RBC) [Mass/Vol] 34.0 g/dL Normal 29.9-35.2 [facility] Comment on above: Performed By: #### C BC #### [facility] [address] [place] [address] Edward Fajardo MCV (RBC) [Entitic vol] 96.7 fL Critically high 80.0-94.0 [facility] Comment on above: Performed By: #### C BC #### [facility] [address] [place] [address] Edward Fajardo MONO # 0.9 103/ul Critically high 0.3-0.8 [facility] Comment on above: Performed By: #### C BC #### [facility] [address] [place] [address] Edward Fajardo Monocytes/100 WBC (Bld) 8.9 % Normal 1.7-12.0 [facility] Comment on above: Performed By: #### C BC #### [facility] [address] [place] [address] Edward Fajardo NEUT # 6.6 103/ul Critically high 1.4-6.5 [facility] Comment on above: Performed By: #### C BC #### [facility] [address] [place], [place] [address] Edward Fajardo Neutrophils/100 WBC (Bld) 65.4 % Normal 43.0-75.0 [facility] Comment on above: Performed By: #### C BC #### [facility] [address] [place], [place] [address] Edwardfrankie Fajardo Platelet mean volume (Bld) [Entitic vol] 9.5 fL Normal 9.5-13.5 [facility] Comment on above: Performed By: #### C BC #### [facility] [address] [place], [place] [address] Edwardfrankie Wilkinsen PLT 276 103/ul Normal 150-450 [facility] Comment on above: Performed By: #### C BC #### [facility] [address] [place], [place] [address] Edwardfrankie Wilkinsen RBC 5.83 106/ul Normal 4.70-6.10 [facility] Comment on above: Performed By: #### C BC #### [facility] [address] [place], [place] [address] Edwardfrankie Wilkinsen WBC 10.0 103/ul Normal 4.0-11.0 [facility] Comment on above: Performed By: #### C BC #### [facility] [address] [place], [place] [id number] Edward Fajardo PROF 14(COMP METB)on 020 Albumin [Mass/Vol] 3.3 g/dL Critically low 3.5-5.0 [facility] Comment on above: Performed By: #### C MP #### [facility] [address] [place], [place] [id number] Edwardfrankie Wilkinsen Albumin/Globulin [Mass ratio] 0.8 {ratio} Normal [facility] Comment on above: Performed By: #### C MP #### [facility] [address] [place], [place] [address] Edward Tana ALP [Catalytic activity/Vol] 100 U/L Normal 38-126 [facility] Comment on above: Performed By: #### C MP #### [facility] [address] [place], [place] [id number] Edward Fajardo ALT [Catalytic activity/Vol] 34 U/L Normal 21-72 [facility] Comment on above: Performed By: #### C MP #### [facility] [address] [place], [place] [address] Edward Tana Anion gap [Moles/Vol] 13.8 mmol/L Normal [facility] Comment on above: Performed By: #### C MP #### [facility] [address] [place] [address] Edwardfrankie Fajardo AST [Catalytic activity/Vol] 23 U/L Normal 17-59 [facility] Comment on above: Performed By: #### C MP #### [facility] [address] [address] Edward Tana Bilirubin [Mass/Vol] 0.2 mg/dL Normal 0.2-1.3 [facility] Comment on above: Performed By: #### C MP #### [facility] [address] [address] Edward Tana Calcium [Mass/Vol] 9.7 mg/dL Normal 8.4-10.2 [facility] Comment on above: Performed By: #### C MP #### [facility] [address] [place] [address] Edward Tana Chloride [Moles/Vol] 105 mmol/L Normal 98-107 [facility] Comment on above: Performed By: #### C MP #### [facility] [address] [place] [address] Edward Tana CO2 [Moles/Vol] 25.3 mmol/L Normal 22.0-30.0 [facility] Comment on above: Performed By: #### C MP #### [facility] [address] [place], [place] [address] Edward Tana Creatinine [Mass/Vol] 0.91 mg/dL Normal 0.66-1.25 [facility] Comment on above: Performed By: #### C MP #### [facility] [address] [place] [address] Edward Tana EGFR-AF WELSH >60 Normal >=60 [facility] Comment on above: Performed By: #### C MP #### [facility] [address] [place], [place] [address] Edward Tana EGFR-NON AF WELSH >60 Normal >=60 [facility] Comment on above: Performed By: #### C MP #### [facility] [address] [place], [place] [address] Edward Tana Globulin (S) [Mass/Vol] 4.2 g/dL Normal [facility] Comment on above: Performed By: #### C MP #### [facility] [address] [place] [address] Edward Tana Glucose [Mass/Vol] 127 mg/dL Critically high 74-106 [facility] Comment on above: Performed By: #### C MP #### [facility] [address] [place] [address] Edward Tana Potassium [Moles/Vol] 4.1 mmol/L Normal 3.4-5.0 [facility] Comment on above: Performed By: #### C MP #### [facility] [address] [place] [address] Edward Tana Protein [Mass/Vol] 7.5 g/dL Normal 6.1-8.2 [facility] Comment on above: Performed By: #### C MP #### [facility] [address] [place] [address] Edward Tana Sodium [Moles/Vol] 140 mmol/L Normal 137-145 [facility] Comment on above: Performed By: #### C MP #### [facility] [address] [place] [address] Edward Tana Urea nitrogen [Mass/Vol] 12.0 mg/dL Normal 9.0-20.0 [facility] Comment on above: Performed By: #### C MP #### [facility] [address] [place] [address] Edward Tana Urea nitrogen/Creatinine [Mass ratio] 13.2 mg/mg Normal [facility] Comment on above: Performed By: #### C MP #### [facility] [address] [place] [address] Edward Tana CBC AUTO DIFFon 02-01-2020 BASO # 0.1 103/ul Normal 0.0-0.1 [facility] Comment on above: Performed By: #### C BC #### [facility] [address] [place], [place] [address] Edward Tana Basophils/100 WBC (Bld) 0.4 % Normal 0.2-2.0 [facility] Comment on above: Performed By: #### C BC #### [facility] [address] [place] [address] Edward Tana EO # 0.1 103/ul Normal 0.0-0.7 [facility] Comment on above: Performed By: #### C BC #### [facility] [address] [place], [place] [address] Edward Tana Eosinophils/100 WBC (Bld) 0.9 % Normal 0.9-7.0 [facility] Comment on above: Performed By: #### C BC #### [facility] [address] [place] [address] Edward Tana Erythrocyte distribution width (RBC) [Ratio] 13.3 % Normal 11.0-15.0 [facility] Comment on above: Performed By: #### C BC #### [facility] [address] [place] [address] Edward Tana Hematocrit (Bld) [Volume fraction] 55.7 % Critically high 42.0-54.0 [facility] Comment on above: Performed By: #### C BC #### [facility] [address] [place] [address] Edward Tana Hemoglobin (Bld) [Mass/Vol] 18.9 g/dL Critically high 14.0-18.0 [facility] Comment on above: Performed By: #### C BC #### [facility] [address] [place] [address] Edward Tana IG # 0.05 10e3/ul Critically high 0.00-0.03 [facility] Comment on above: Performed By: #### C BC #### [facility] [address] [place] [address] Edward Tana IG % 0.4 % Normal 0.0-0.5 [facility] Comment on above: Performed By: #### C BC #### [facility] [address] [place], [place] [address] Edward Tana LYMPH # 1.5 103/ul Normal 1.2-3.8 [facility] Comment on above: Performed By: #### C BC #### [facility] [address] [place], [place] [address] Edward Tana Lymphocytes/100 WBC (Bld) 10.8 % Critically low 20.5-60.0 [facility] Comment on above: Performed By: #### C BC #### [facility] [address], [place] [address] Edward Tana MANUAL DIFF REQ NO Normal [facility] Comment on above: Performed By: #### C BC #### [facility] [address], [place] [address] Edwardfrankie Fajardo MCH (RBC) [Entitic mass] 33.1 pg Normal 25.9-34.0 [facility] Comment on above: Performed By: #### C BC #### [facility] [address] [place], [place] [address] Edwardfrankie Fajardo MCHC (RBC) [Mass/Vol] 33.9 g/dL Normal 29.9-35.2 [facility] Comment on above: Performed By: #### C BC #### [facility] [address] [place], [place] [address] Edward Tana MCV (RBC) [Entitic vol] 97.5 fL Critically high 80.0-94.0 [facility] Comment on above: Performed By: #### C BC #### [facility] [address] [place], [place] [address] Edward Tana MONO # 1.1 103/ul Critically high 0.3-0.8 [facility] Comment on above: Performed By: #### C BC #### [facility] [address] [place], [place] [address] Edward Tana Monocytes/100 WBC (Bld) 8.0 % Normal 1.7-12.0 [facility] Comment on above: Performed By: #### C BC #### [facility] [address] [place], [place] [address] Edward Tana NEUT # 11.1 103/ul Critically high 1.4-6.5 [facility] Comment on above: Performed By: #### C BC #### [facility] [address] [place], [place] [address] Edward Tana Neutrophils/100 WBC (Bld) 79.5 % Critically high 43.0-75.0 [facility] Comment on above: Performed By: #### C BC #### [facility] [address] [place] [address] Edwardfrankie Fajardo Platelet mean volume (Bld) [Entitic vol] 10.1 fL Normal 9.5-13.5 [facility] Comment on above: Performed By: #### C BC #### [facility] [address] [place] [address] Edward Tana PLT 280 103/ul Normal 150-450 [facility] Comment on above: Performed By: #### C BC #### [facility] [address] [place], [place] [address] Edward Tana RBC 5.71 106/ul Normal 4.70-6.10 [facility] Comment on above: Performed By: #### C BC #### [facility] [address] [place], [place] [address] Edward Tana WBC 13.9 103/ul Critically high 4.0-11.0 [facility] Comment on above: Performed By: #### C BC #### [facility] [address] [place], [place] [address] Edward Fajardo PROF 14(COMP METB)on 020 Albumin [Mass/Vol] 3.0 g/dL Critically low 3.5-5.0 [facility] Comment on above: Performed By: #### C MP #### [facility] [address] [place], [place] [address] Edward Tana Albumin/Globulin [Mass ratio] 0.7 {ratio} Normal [facility] Comment on above: Performed By: #### C MP #### [facility] [address] [place], [place] [address] Edward Tana ALP [Catalytic activity/Vol] 86 U/L Normal 38-126 [facility] Comment on above: Performed By: #### C MP #### [facility] [address] [place], [place] [address] Edward Tana ALT [Catalytic activity/Vol] 49 U/L Normal 21-72 [facility] Comment on above: Performed By: #### C MP #### [facility] [address] [address] Edward Tana Anion gap [Moles/Vol] 11.2 mmol/L Normal [facility] Comment on above: Performed By: #### C MP #### [facility] [address] [address] Edward Tana AST [Catalytic activity/Vol] 28 U/L Normal 17-59 [facility] Comment on above: Performed By: #### C MP #### [facility] [address] [id number] Edward Tana Bilirubin [Mass/Vol] 0.6 mg/dL Normal 0.2-1.3 [facility] Comment on above: Performed By: #### C MP #### [facility] [address] [place] [address] Edward Tana Calcium [Mass/Vol] 9.4 mg/dL Normal 8.4-10.2 [facility] Comment on above: Performed By: #### C MP #### [facility] [address] [place] [address] Edward Tana Chloride [Moles/Vol] 102 mmol/L Normal 98-107 [facility] Comment on above: Performed By: #### C MP #### [facility] [address] [place] [address] Edward Tana CO2 [Moles/Vol] 28.1 mmol/L Normal 22.0-30.0 [facility] Comment on above: Performed By: #### C MP #### [facility] [address] [place], [place] [address] Edward Tana Creatinine [Mass/Vol] 0.70 mg/dL Normal 0.66-1.25 [facility] Comment on above: Performed By: #### C MP #### [facility] [address] [place], [place] [address] Edward Tana EGFR-AF WELSH >60 Normal >=60 [facility] Comment on above: Performed By: #### C MP #### [facility] [address] [place], [place] [address] Edward Tana EGFR-NON AF WELSH >60 Normal >=60 [facility] Comment on above: Performed By: #### C MP #### [facility] [address], [place] [address] Edward Tana Globulin (S) [Mass/Vol] 4.6 g/dL Normal [facility] Comment on above: Performed By: #### C MP #### [facility] [address], [place] [address] Edward Tana Glucose [Mass/Vol] 126 mg/dL Critically high 74-106 T [facility] Comment on above: Performed By: #### C MP #### [facility] [address], [place] [address] Edward Tana Potassium [Moles/Vol] 3.3 mmol/L Critically low 3.4-5.0 [facility] Comment on above: Performed By: #### C MP #### [facility] [address], [place] [address] Edward Tana Protein [Mass/Vol] 7.6 g/dL Normal 6.1-8.2 [facility] Comment on above: Performed By: #### C MP #### [facility] [address], [place] [address] Edward Tana Sodium [Moles/Vol] 138 mmol/L Normal 137-145 [facility] Comment on above: Performed By: #### C MP #### [facility] [address], [place] [address] Edward Tana Urea nitrogen [Mass/Vol] 9.0 mg/dL Normal 9.0-20.0 [facility] Comment on above: Performed By: #### C MP #### [facility] [address], [place] [address] Edward Tana Urea nitrogen/Creatinine [Mass ratio] 12.9 mg/mg Normal [facility] Comment on above: Performed By: #### C MP #### [facility] [address], [place] [address] Edward Tana Vital Signs Date Time Vital Sign Value Performing Clinician Facility 12-03-2022 11:30-0400 Body height 177.8 cm Verna Ordoñez Other [facility] Other 12-03-2022 11:30-0400 Body mass index (BMI) [Ratio] 35.55 kg/m2 Verna Ordoñez Other [facility] Other 12-03-2022 11:30-0400 Body temperature 97.3 [degF] Verna Ordoñez Other [facility] Other 12-03-2022 11:30-0400 Body weight 112.4 kg Verna Ordoñez Other [facility] Other 12-03-2022 11:30-0400 Diastolic blood pressure 98 mm[Hg] Verna Ordoñez Other [facility] Other 12-03-2022 11:30-0400 Respiratory rate 18 /min Verna Ordoñez Other [facility] Other 12-03-2022 11:30-0400 SaO2% (BldA) [Mass fraction] 93 % Verna Ordoñez Other [employer] Other 12-03-2022 11:30-0400 Systolic blood pressure 148 mm[Hg] Verna Ordoñez Other [employer] Other Encounters Encounter Date Encounter Type Care Provider Facility Start: 07-29-2023 ambulatory ANI J BRENDA Facilit y:TEE Gutiérrez Start: 2023 ambulatory ANI J BRENDA Facilit y:TIA Gutiérrez Start: 04-15-2023 ambulatory ANI ADWOAZ Facility: [facility] Start: 03-31-2023 End: 03-31-2023 ambulatory ANI ADWOAZ Not Available Start: 02-17-2023 End: 02-17-2023 ambulatory ANI SYLVIEHHOLZ Not Available Start: 12-03-2022 End: 12-03-2022 ambulatory Verna Ordoñez Other Code [facility] Other Start: 12-03-2022 Office outpatient ne w 30 minutes Verna Ordoñez [facility] Start: 01-09-2021 End: 01-09-[address] HEATHER HOBBS Facility:[facility] Start: 07-17-2020 End: 07-18-2020 ambulatory TRAVEL CLERK ANI AICHHOLZ Facility:[facility] Start: 04-13-2020 Encounter for preprocedural laboratory examination DR BENJAMIN THURMAN [facility] Start: 04-12-2020 End: 04-12-2020 ambulatory TRAVEL CLERK ANI AICHHOLZ Facility:[facility] Start: 04-08-2020 End: 04-09-2020 ambulatory TRAVEL CLERK ANI AICHHOLZ Facility:[facility] Start: 04-08-2020 End: 04-09-2020 Encounter for preprocedural laboratory examination TRAVEL CLERK ANI AICHHOLZ Facility:[facility] Start: 03-15-2020 End: 03-16-2020 ambulatory TRAVEL CLERK ANI AICHHOLZ Facility:[facility] Start: 03-03-2020 End: 03-04-2020 ambulatory TRAVEL CLERK ANI AICHHOLZ Facility:[facility] Start: 02-24-2020 End: 02-25-2020 ambulatory TRAVEL CLERK ANI AICHHOLZ Facility:[facility] Start: 02-01-2020 End: 02-02-2020 ambulatory TRAVEL CLERK ANI AICHHOLZ Facility:[facility] Payers Date Payer Category Payer Unknown [id number] 1960 Unknown [id number] 1961 Unknown [id number] 1961 Unknown [id number] 1961 Unknown [id number] ..[id number] 1961 Unknown [id number] 2.16.84 [id number] 1961 Unknown [id number] 2.16.84 [id number] 1961 Unknown [id number] 2.16.84 [id number] 1961 Unknown [id number] 2.16.84 [id number] 1961 Unknown [id number] 2.16.840 .[id number] 1961 Unknown [id number] 2.16.8 [id number] 1961 Unknown [id number] 2.16.8 [id number] 1959 Private Health Insurance [id number] 1959 Unknown [id number] Self-pay Social History Date Type Detail Facility Unknown if ever smoked Code [facility] Other Sex Assigned At Sex Assigned At Bir th Code [facility] Other Evaluation note 12-03-2022 Note Date & Type Note Facility 12-03-2022 Evaluation note Encounter Date Diagnosis Assessment Notes Nov, COPD exacerbation (ICD-10 - J44.1) Patient declines COVID testing. Discussed with patient exam is consistent with COPD exacerbation. Discussed likely started as viral URI. Covering with azithromycin given comorbidity of COPD. Finish entire course. May use Mucinex DM [id number] . Prednisone burst and as needed albuterol inhaler sent. Follow-up with PCP for recheck in the next 5 to 7 days, sooner if significantly worsening. Discussed with chronic condition of COPD is important he follows up regularly with PCP. Encouraged to quit smoking. Patient verbalized understanding of treatment plan. Code [facility] Other Clinical Note 04-12-2020 Note Date & [...] sent to Recovery Room in good condition. [facility] Signed and Approved by: DR BENJAMIN THURMAN . 04/13/2020 09:02:00 [facility] Summary Purpose Family History No Family History Records FoundNo Family History Records FoundNo Family History Records Found Advance Directives No Advanced Directives Records FoundNo Advanced Directives Records FoundNo Advanced Directives Records Found Additional Source Comments (unrecognized sect ion and content) No Status Records FoundNo Status Records FoundNo Status Records Found INFORMATION SOURCE (unrecogn ized section and content) DATE CREATED AUTHOR 01/12/2021 [facility] DATE CREATED AUTHOR AUTHOR'S ORGANIZ ATION 04/01/2023 [facility] EPIC DATE CREATED AUTHOR AUTHOR'S ORGANIZ ATION 05/04/2023 [facility] REASON FOR VISIT (unrecogniz ed section and [...] BE BASED ON THE PRIMARY CLINICAL RECORDS. [employer] [facility]. provides no warranty or guarantee of the accuracy or completeness of information in this document.
--- NOTE | 2023-05-05 07:21 | CT_ITS ---
The [address] [address] Patient Name: VELMA AKTHAR MRN: [id number] date: 1960 Sex: M Assigned Patient Location: LAB Current Patient Location: LAB Accession/Order Number: [id number] Exam Date: 05/05/2023 07:40 Report Date: 05/05/2023 09:15 At the request of: MICK DE LA CRUZ Procedure: CT soft tissue neck w con EXAM: CT soft tissue neck w con CLINICAL INDICATION: Abnormal Results Of Function Studies, Foreign Body Sensation COMPARISON: No direct, comparable studies. CT chest 05/05/2023. TECHNIQUE: Standard enhanced CT of the neck following intravenous contrast administration. Axial sections with coronal and sagittal reformats were obtained. Dose reduction techniques were achieved by using automated exposure control and/or adjustment of mA and/or kV according to patient size and/or use of iterative reconstruction technique. FINDINGS: Lymph Nodes/Soft Tissues: No extranodal soft tissue mass, abnormal enhancement, or fat stranding. No enlarged or morphologically abnormal lymph nodes. Airway: Patent. No radiopaque foreign body. Nasopharynx: Normal. Suprahyoid Neck: Oropharynx, oral cavity, parapharyngeal, and retropharyngeal spaces are clear and symmetric. Infrahyoid Neck: Larynx, hypopharynx, and supraglottic area are clear and symmetric. Vocal cords are symmetric. Parotid Glands: Normal. Submandibular Glands: Normal. Thyroid: Normal. Orbits: Normal. Paranasal Sinuses: Mild scattered paranasal sinus mucosal thickening. Mastoid Air Cells: Well-aerated. Skull Base: Normal. Thoracic Inlet: Please see dedicated CT chest obtained contemporaneously and reported separately. Vascular Structures: Symmetric and patent. Musculoskeletal: No acute osseous abnormality. Mild multilevel cervical spondylotic changes. Maxilla is edentulous. Few remaining mandibular teeth. CT/CT soft tissue neck w con IMPRESSION: No extranodal soft tissue mass, abnormal enhancement, or lymphadenopathy in the neck. Electronically authenticated by: ROMAINE PETERSON Date: 05/05/2023 09:15
--- NOTE | 2023-05-05 07:21 | CT_ITS ---
[address] [address] Patient Name: VELMA AKHTAR MRN: [id number] date: 1960 Sex: M Assigned Patient Location: LAB Current Patient Location: LAB Accession/Order Number: [id number] Exam Date: 05/05/2023 07:40 Report Date: 05/05/2023 08:50 At the request of: MICK DE LA CRUZ Procedure: CT chest wo con CT chest wo con, 05/05/2023 7:40 AM EST INDICATION: Solitary Pulmonary Nodule R91.1 COMPARISON: LD CT scan of the chest 01/30/2023, CT of the abdomen and pelvis 03/03/2020 TECHNIQUE: Thin-section axial CT images of the chest were acquired without contrast. Supplemental 2D reformatted images were generated and reviewed as needed. Dose reduction techniques were achieved by using automated exposure control and/or adjustment of mA and/or kV according to patient size and/or use of iterative reconstruction technique. FINDINGS: Heart size within normal limits. No pericardial effusion. Mild coronary artery calcification and calcified atherosclerotic change within a normal caliber aorta. No mediastinal or axillary lymphadenopathy. No central endobronchial nodule. Mild diffuse emphysematous change and bronchial wall thickening. No lobar consolidation, pleural effusion or pneumothorax. 6 mm left lower lobe pulmonary nodule, previously 8 mm (3, 85) No new suspicious pulmonary nodule. Diffuse fatty infiltration within an enlarged liver. Colonic diverticulosis. Cortical cyst upper pole of the right kidney. Subcentimeter cortical hypodensity upper pole the left kidney, too small to characterize. No acute fracture. CT/CT chest wo con IMPRESSION: 1. Interval decrease in size of left lower lobe pulmonary nodule. Lung RADS category 2: Benign. LD CT scan of the chest in one year recommended. 2. Hepatomegaly with diffuse hepatic steatosis. 3. Mild chronic changes of COPD. 4. Diverticulosis coli. Electronically authenticated by: HERNAN YADAV Date: 05/05/2023 08:50
[2023-05-05 07:24] LABS: Estimated GFR (African America >60 (>=60); Estimated GFR (Non-African Ame >60 (>=60)
== END 2023-05-05 07:09 | disposition home or self-care (01) ==
LOC: LAB 07:08
PROVIDERS: PCP Nurse Practitioner; Visit Provider Internal Medicine
DX: R91.1 Solitary pulmonary nodule (principal); R94.2 Abnormal results of pulmonary function studies; R09.A2 Foreign body sensation, throat
CPT/HCPCS: 36415; 70491; 71250; 82565; Q9967

== ENCOUNTER 2023-05-13 13:22 | Outpatient (OUT) | payer OTHER, SELFPAY | END 2023-05-13 13:23 | disposition home or self-care (01) | LOC: PST 13:22 | PROVIDERS: PCP Nurse Practitioner; Visit Provider Surgery | DX: D12.6 Benign neoplasm of colon, unspecified (principal) ==

== ENCOUNTER 2023-05-21 07:05 | Day surgery (SDC) | payer OTHER, SELFPAY ==
--- NOTE | 2023-05-21 | OP_ITS ---
OPERATION DATE: 05/21/2023 PREOPERATIVE DIAGNOSIS: Personal history of colon polyps. POSTOPERATIVE DIAGNOSIS: Sigmoid polyps x5. PROCEDURE: Colonoscopy to cecum with cold snare polypectomy x3 and hot snare polypectomy x2, as well as biopsy of inflamed, redundant sigmoid fold, mild sigmoid diverticulosis. SURGEON: Octavio Thurman M.D. ANESTHESIA: Monitored anesthesia care. ESTIMATED BLOOD LOSS: Less than 2 mL. INDICATIONS AND CONSENT: Patient is a 63-year-old male with a personal history of colon polyps who had six polyps removed in 2020, now presents for surveillance colonoscopy. Indications, risks, benefits, alternatives of proceeding with colonoscopy were explained extensively to the patient, including the risks of bleeding, colon perforation or anesthetic complications. All of his questions were answered. Informed consent was obtained. PROCEDURE: Patient brought to the operating room, placed in the left lateral decubitus position. Monitored anesthesia care was provided. Rectal exam was performed which showed no masses or blood. The scope was inserted into the anal canal. Under direct visualization was advanced. It was advanced to the cecum, with the aid of abdominal compression, where cecal markings were clearly identified. Upon withdrawal of the scope, mucosal surfaces were carefully examined. There was noted to be a good prep. There were no mass lesions. There was mild sigmoid diverticulosis. Within the proximal sigmoid, there was noted to be a 5 mm sessile polyp as well as 4 mm sessile polyp. These were removed with cold snare with good hemostasis. There was mild sigmoid diverticulosis without inflammatory changes or scarring. Within the distal sigmoid, there was noted to be three polyps; a 4 mm polyp x2 and a 3 mm polyp. Two were removed with hot snare, one with cold snare. There was also noted to be a redundant fold that was inflamed and thickened, but it did not appear to be polypoid. Multiple biopsies of this were obtained with good hemostasis. The scope was retroflexed in the anal canal. There were noted to be some prominent rectal veins. No significant hemorrhoidal disease. Scope was then withdrawn. Patient tolerated procedure well, was sent to recovery room in good condition. Follow up colonoscopy will likely be in three years, but will depend on the pathology results. CC: RASHAD Bernal
--- OUTSIDE RECORDS SUMMARY | 2023-05-21 07:09 | XMS_ITS | CCD ---
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 Name Role Phone AICHHOLZ, TELECINE OPERATOR NILDA Admitting Unavailable AICHHOLZ, TELECINE OPERATOR NILDA Attending Unavailable AICHHOLZ, TELECINE OPERATOR NILDA Consulting Unavailable AICHHOLZ, TELECINE OPERATOR NILDA Primary Care Unavailable AICHHOLZ, TELECINE OPERATOR NILDA Primary Care Unavailable AICHHOLZ, TELECINE OPERATOR NILDA Consulting Unavailable AICHHOLZ, TELECINE OPERATOR NILDA Admitting Unavailable AICHHOLZ, TELECINE OPERATOR NILDA Attending Unavailable AICHHOLZ, TELECINE OPERATOR NILDA Admitting Unavailable AICHHOLZ, TELECINE OPERATOR NILDA Attending Unavailable AICHHOLZ, TELECINE OPERATOR NILDA Consulting Unavailable AICHHOLZ, TELECINE OPERATOR NILDA Primary Care Unavailable ZIEBCAMPBELL, DR HEATHER Wagner Consulting Unavailable AICHHOLZ, TELECINE OPERATOR NILDA Admitting Unavailable AICHHOLZ, TELECINE OPERATOR NILDA Attending Unavailable AICHHOLZ, TELECINE OPERATOR NILDA Primary Care Unavailable AICHHOLZ, TELECINE OPERATOR NILDA Consulting Unavailable AICHHOLZ, TELECINE OPERATOR NILDA Primary Care Unavailable NILL, DR ALEXANDER Consulting Unavailable NILL, DR ALEXANDER Admitting Unavailable NILL, DR ALEXANDER Attending Unavailable ZIEBER, DR HEATHER Wagner Consulting Unavailable REQUEST, DR LLANES LISTED Primary Care Unavaila ble NAIF LOMAX Admitting Unavailable NAIF LOMAX Attending Unavailable DAMI, NAIF Consulting Unavailable AICHHOLZ, TELECINE OPERATOR NILDA Primary Care Unavailable NILL, DR ALEXANDER Consulting Unavailable NILL, DR ALEXANDER Admitting Unavailable NILL, DR ALEXANDER Attending Unavailable MILKA STEPHENS Consulting Unavailable AICHHOLZ, TELECINE OPERATOR NILDA Primary Care Unavailable SHAIKH GALE Consulting Unavailable BALJINDER, WILLIAMSON Admitting Unavailable SHAIKH GALE Attending Unavailable Verna Ordoñez Unavailable AICHHOLZ, NILDA Attending Unavailable AICHHOLZ, NILDA Attending Unavailable NILDA CHEEMA Primary Care Physician [phone] SHIRLEY ESTRADA Attending Unavailable NILDA CHEEMA Referring Unavailable Benjamin THURMAN Attending Unavailable NILDA CHEEMA Referring Unavailable Allergies Allergy Classification Reported Allergen(s) Allergy Type Date of Onset Reaction(s) Facility (1 source) No Known Medication Allergies; Translations: [No Known Medication Allergies] Propensity to adverse reactions (disorder) [facility] Repository Medications Current Medications Medication Drug Class(es) Dates Sig (Normalized) Sig (Original) Albuterol (2 sources) beta2-Adrenergic Agonist Start: 04-16-2023 take 2 puff(s) by inhalation every six hours Albuterol (Eqv-ProAir HFA) 2 puff(s), Inhalation, q6hr Shortness of breath or wheezing, Refill(s) 0 Start Date: 04/16/23 Status: Ordered Start: 12-03-2022 take 2 puff(s) by in halation every four hours as needed for wheezing Albuterol Sulfate HFA 108 (90 Base) MCG/ACT 2 puffs Inhalation every 4 hrs prn SOB, wheezing for 15 days Nov, Active aspirin 81 mg chewable tablet (1 source) Platelet Aggregation Inhibitor, Nonsteroidal Anti-inflammatory Drug Start: 2023 aspirin 81 mg Chew Tab 81 mg = 1 tab(s), Chewed, Daily, Refills(s) 0 Start Date: 05/06/23 Status: Ordered azithromycin 250 mg oral tablet (1 source) Macrolide Antimicrobial Start: 12-03-2022 Azithromycin 250 MG 2 tablet on first day, 1 tablet daily for 4 days Orally daily for 5 days Nov, Active lisinopril 20 mg oral tablet (1 source) Angiotensin Converting Enzyme Inhibitor Start: 04-16-2023 take 1 tablet by mouth once daily lisinopril 20 mg Tab 20 mg = 1 tab(s), Oral, Daily, Refills(s) 0 Start Date: 04/16/23 Status: Ordered metFORMIN hydrochloride 1000 mg oral tablet (1 source) Biguanide Start: 04-16-2023 take 1 tablet by mouth twice daily metformin 1000 mg Tab 1,000 mg = 1 tab(s), Oral, BID, Refills(s) 0 Start Date: 04/16/23 Status: Ordered predniSONE 20 mg oral tablet (1 source) Start: 12-03-2022 predniSONE 20 MG take 2 tabs po daily x 5 days Orally Once a day for 5 days Nov, Active Trelegy Ellipta 100 mcg-62.5 mcg-25 mcg inhalation powder (1 source) Start: 04-16-2023 take 1 puff(s) by inhalation once daily Trelegy Ellipta 100 mcg-62.5 mcg-25 mcg inhalation powder = 1 puff(s), Inhalation, Daily, Refills(s) 0 Start Date: 04/16/23 Status: Ordered Problems Active Problems Problem Classification Problem Date Documented Da te Episodic/Chronic Abdominal pain (1 source) Left lower quadrant pain 04-16-2023 Episodic Chronic obstructive pulmonary disease and bronchiectasis (4 sources) Chronic obstructive pulmonary disease, unspecified; Translations: [Acute exacerbation of chronic obstructive airways disease] Onset: 04-18-2020 Chronic Diabetes mellitus without complication (1 source) Type 2 diabetes mellitus 04-16-2023 Chronic Diabetes mellitus without complication (5 sources) Hyperglycemia, unspecified; Translations: [Hyperglycemia] Onset: 07-17-2020 Episodic Diverticulosis and diverticulitis (6 sources) Diverticulosis of large intestine without perforation or abscess without bleeding; Translations: [Diverticulitis of intestine, part unspecified, without perforation or abscess without bleeding] Onset: 03-03-2020 Chronic Essential hypertension (1 source) Hypertensive disorder 04-16-2023 Chronic Gastrointestinal hemorrhage (6 sources) Hemorrhage of anus and rectum; Translations: [Gastrointestinal hemorrhage] Onset: 03-06-2020 Episodic Other and unspecified benign neoplasm (2 sources) History of polyp of colon; Translations: [Personal history of colonic polyps] Onset: 2023 Episodic Other and unspecified benign neoplasm (1 source) Adenomatous polyp of colon 04-19-2020 Episodic Other and unspecified benign neoplasm (1 source) Tubular adenoma of colon 04-19-2020 Episodic Other gastrointestinal disorders (1 source) Alteration in bowel elimination 04-16-2023 Episodic Other gastrointestinal disorders (1 source) Diarrhea 03-28-2020 Episodic Other gastrointestinal disorders (1 source) History of diverticulitis 03-24-2020 Episodic Other hematologic conditions (1 source) Secondary polycythemia 04-16-2023 Episodic Other lower respiratory disease (1 source) Solitary nodule of lung 04-16-2023 Episodic Other nutritional; endocrine; and metabolic disorders (1 source) Body mass index 30+ - obesity 2023 Chronic Other nutritional; endocrine; and metabolic disorders (1 source) Morbid obesity 2023 Chronic Residual codes; unclassified (1 source) Tobacco user 03-22-2020 Episodic Spondylosis; intervertebral disc disorders; other back problems (1 source) Degeneration of lumbar intervertebral disc 04-16-2023 Chronic Substance-related disorders (1 source) Nicotine dependence, cigarettes, uncomplicated; Translations: [NICOTINE DEPEND CIGARETTES UNCOMP] Onset: 01-11-2021 Chronic Unclassified (3 sources) LOW BACK PAIN, UNSPECIFIED; Translations: [LOW BACK PAIN, UNSPECIFIED] Onset: 01-11-2021 Unclassified (1 source) CONTACT W/AND (SUSP) EXPOS COVID-19; Translations: [CONTACT W/AND (SUSP) EXPOS COVID-19] Onset: 04-13-2020 Past or Other Problems Problem Classification Problem Date Documented Da te Episodic/Chronic Other and unspecified benign neoplasm (1 source) [...] Test Name Value Interpretation Reference Range Facility Consent for Procedure/Surger yon 05-08-2023 Consent for Procedure/Surgery [id number] .[id number] [facility] Facesheeton 05-07-2023 Facesheet [id number] .00TIFF [facility] Ambulatory Visit Summaryon 0 2023 Ambulatory Visit Summary PATRICK AKHTAR :1960 Visit Date:2023 Ambulatory Visit Instructions Your Care Team Attending Physician - JOSE STRONG, Benjamin Wagner Primary Care Physician - NILDA CHEEMA CNP Referring Physician - BRENDA NAJERA, NILDA Mcnulty This Is Your Medications List Contact prescribing physician if questions or concerns albuterol (Albuterol (Eqv-ProAir HFA)) aspirin (aspirin 81 mg Chew Tab) fluticasone/umeclidin ium/vilanterol (Trelegy Ellipta 100 mcg-62.5 mcg-25 mcg inhalation powder) lisinopril (lisinopril 20 mg Tab) metformin (metformin 1000 mg Tab) Procedures Performed Colonoscopy (04/12/2020), Repair of umbilical hernia. Discharge Vitals Heart Rate (Peripheral) 76 Respiratory Rate 16 Blood Pressure 132/84 Height 177.8 cm Height 70 in Weight 111 kg Weight 244.2 lb BMI 35.11 What to do next Scheduled Follow-Up Appointments Friday. 2023 1:20 PM EDT With: SHIRLEY ESTRADA PA-C Where: [facility] Physician Referralon 024 Physician Referral [id number]_3 VIEWSon 2020 XR [...] by: HEATHER HOBBS Date: 2021-01-09 11:33 Normal [facility] GLYCOHEMOGLOBIN A1Con 2020 ADA RECOMMENDATION ADA THERAPEUTIC TARGET 6.0 - 7.0 ACTION SUGGESTED > 7.0 Normal [facility] Comment on above: Performed By: #### A 1C #### [facility] [address] [address] Edward Fajardo Glucose [Mass/Vol] 123 mg/dL Normal [facility] Comment on above: Performed By: #### A 1C #### [facility] [address] [id number] Edward Fajardo HbA1c (Bld) [Mass fraction] 5.9 % Normal <=6.0 [facility] Comment on above: Performed By: #### A 1C #### [facility] [address] [place], [place] [address] Edward Fajardo Covid-19 PCR (CVDTBH)on 03-18 EUA Statement SEE BELOW Normal [facility] Comment on above: Result Comment: This test is not yet approved or cleared by the [place] FDA. When there are no FDA-approved or cleared tests available, and other criteria are met, FDA can make tests available under an emergency access mechanism called an Emergency Use Authorization (EUA). The EUA for this test is supported by the Supply Chain Director of Health and Human Service?s (HHS?s) declaration [...] SARS-CoV-2. Performed By: #### C VDTBH #### [facility] [address] [place], [place] [id number] Edward Fajardo SARS-CoV-2 (COVID-19) RNA ADELFO+probe Ql (Unsp spec) Not detected Normal NOT DETECTED [facility] Comment on above: Result Comment: This test is not yet approved or cleared by the [place] FDA. When there are no FDA-approved or cleared tests available, and other criteria are met, FDA can make tests available under an emergency access mechanism called an Emergency Use Authorization (EUA). The EUA for this test is supported by the [place] of Health and Human Service's (HHS's) declaration [...] used). Performed By: #### C VDTBH #### [facility] [address] [place], [place] [id number] Edward Fajardo GLYCOHEMOGLOBIN A1Con 2019 Glucose [Mass/Vol] 123 mg/dL Normal [facility] Comment on above: Performed By: #### A 1C #### [facility] [address] [place], [place] [id number] Edward Fajardo HbA1c (Bld) [Mass fraction] 5.9 % Normal <=6.0 [facility] Comment on above: Performed By: #### A 1C #### [facility] [address] [place], [place] [id number] Edward Fajardo CT ABD/PELV W CONon 03-03-20 [...] HEATHER HOBBS Date: 2020-03-03 09:23 Normal [facility] CBC AUTO DIFFon 02-24-2020 BASO # 0.1 103/ul Normal 0.0-0.1 [facility] Comment on above: Performed By: #### C BC #### [facility] [address] [place] [address] Edward Tana Basophils/100 WBC (Bld) 0.7 % Normal 0.2-2.0 [facility] Comment on above: Performed By: #### C BC #### [facility] [address] [place], [place] [address] Edward Tana EO # 0.1 103/ul Normal 0.0-0.7 [facility] Comment on above: Performed By: #### C BC #### [facility] [address] [place], [place] [address] Edward Tana Eosinophils/100 WBC (Bld) 1.2 % Normal 0.9-7.0 [facility] Comment on above: Performed By: #### C BC #### [facility] [address] [place] [address] Edward Fajardo Erythrocyte distribution width (RBC) [Ratio] 13.1 % Normal 11.0-15.0 [facility] Comment on above: Performed By: #### C BC #### [facility] [address] [place] [address] Edward Fajardo Hematocrit (Bld) [Volume fraction] 56.4 % Critically high 42.0-54.0 [facility] Comment on above: Performed By: #### C BC #### [facility] [address] [place] [address] Edward Fajardo Hemoglobin (Bld) [Mass/Vol] 19.2 g/dL Critically high 14.0-18.0 [facility] Comment on above: Performed By: #### C BC #### [facility] [address] [place] [address] Edwardfrankie Fajardo IG # 0.06 10e3/ul Critically high 0.00-0.03 [facility] Comment on above: Performed By: #### C BC #### [facility] [address] [place] [address] Edward Fajardo IG % 0.6 % Critically high 0.0-0.5 [facility] Comment on above: Performed By: #### C BC #### [facility] [address] [place] [address] Edward Fajardo LYMPH # 2.3 103/ul Normal 1.2-3.8 [facility] Comment on above: Performed By: #### C BC #### [facility] [address] [place] [address] Edward Fajardo Lymphocytes/100 WBC (Bld) 23.2 % Normal 20.5-60.0 [facility] Comment on above: Performed By: #### C BC #### [facility] [address] [place] [address] Edward Fajardo MANUAL DIFF REQ NO Normal [facility] Comment on above: Performed By: #### C BC #### [facility] [address] [place], [place] [address] Edward Fajardo MCH (RBC) [Entitic mass] 32.9 pg Normal 25.9-34.0 [facility] Comment on above: Performed By: #### C BC #### [facility] [address] [place], [place] [address] Edward Fajardo MCHC (RBC) [Mass/Vol] 34.0 g/dL Normal 29.9-35.2 [facility] Comment on above: Performed By: #### C BC #### [facility] [address] [address] Edward Fajardo MCV (RBC) [Entitic vol] 96.7 fL Critically high 80.0-94.0 [facility] Comment on above: Performed By: #### C BC #### [facility] [address] [address] Edward Fajardo MONO # 0.9 103/ul Critically high 0.3-0.8 [facility] Comment on above: Performed By: #### C BC #### [facility] [address] [address] Edward Fajardo Monocytes/100 WBC (Bld) 8.9 % Normal 1.7-12.0 [facility] Comment on above: Performed By: #### C BC #### [facility] [address] [address] Edward Fajardo NEUT # 6.6 103/ul Critically high 1.4-6.5 [facility] Comment on above: Performed By: #### C BC #### [facility] [address] [address] Edward Fajardo Neutrophils/100 WBC (Bld) 65.4 % Normal 43.0-75.0 [facility] Comment on above: Performed By: #### C BC #### [facility] [address] [address] Edwardfrankie Fajardo Platelet mean volume (Bld) [Entitic vol] 9.5 fL Normal 9.5-13.5 [facility] Comment on above: Performed By: #### C BC #### [facility] [address] [place], [place] [address] Edward Tana PLT 276 103/ul Normal 150-450 [facility] Comment on above: Performed By: #### C BC #### [facility] [address] [place], [place] [address] Edward Tana RBC 5.83 106/ul Normal 4.70-6.10 [facility] Comment on above: Performed By: #### C BC #### [facility] [address] [place], [place] [address] Edward Tana WBC 10.0 103/ul Normal 4.0-11.0 [facility] Comment on above: Performed By: #### C BC #### [facility] [address] [place] [address] Edwardfrankie Wilkinsen PROF 14(COMP METB)on 020 Albumin [Mass/Vol] 3.3 g/dL Critically low 3.5-5.0 [facility] Comment on above: Performed By: #### C MP #### [facility] [address] [place], [place] [address] Edward Tana Albumin/Globulin [Mass ratio] 0.8 {ratio} Normal [facility] Comment on above: Performed By: #### C MP #### [facility] [address] [place], [place] [address] Edward Tana ALP [Catalytic activity/Vol] 100 U/L Normal 38-126 [facility] Comment on above: Performed By: #### C MP #### [facility] [address] [place], [place] [address] Edward Tana ALT [Catalytic activity/Vol] 34 U/L Normal 21-72 [facility] Comment on above: Performed By: #### C MP #### [facility] [address] [place], [place] [address] Edward Tana Anion gap [Moles/Vol] 13.8 mmol/L Normal [facility] Comment on above: Performed By: #### C MP #### [facility] [address] [address] Edward Tana AST [Catalytic activity/Vol] 23 U/L Normal 17-59 [facility] Comment on above: Performed By: #### C MP #### [facility] [address] [address] Edward Tana Bilirubin [Mass/Vol] 0.2 mg/dL Normal 0.2-1.3 [facility] Comment on above: Performed By: #### C MP #### [facility] [address] [address] Edward Tana Calcium [Mass/Vol] 9.7 mg/dL Normal 8.4-10.2 [facility] Comment on above: Performed By: #### C MP #### [facility] [address] [place] [address] Edward Tana Chloride [Moles/Vol] 105 mmol/L Normal 98-107 [facility] Comment on above: Performed By: #### C MP #### [facility] [address] [place] [address] Edward Tana CO2 [Moles/Vol] 25.3 mmol/L Normal 22.0-30.0 [facility] Comment on above: Performed By: #### C MP #### [facility] [address] [place] [address] Edward Tana Creatinine [Mass/Vol] 0.91 mg/dL Normal 0.66-1.25 [facility] Comment on above: Performed By: #### C MP #### [facility] [address] [place] [address] Edward Tana EGFR-AF SWISS >60 Normal >=60 [facility] Comment on above: Performed By: #### C MP #### [facility] [address] [place], [place] [id number] Edward Tana EGFR-NON AF SWISS >60 Normal >=60 [facility] Comment on above: Performed By: #### C MP #### [facility] [address] [place] [address] Edward Tana Globulin (S) [Mass/Vol] 4.2 g/dL Normal [facility] Comment on above: Performed By: #### C MP #### [facility] [address] [phone] Edward Tana Glucose [Mass/Vol] 127 mg/dL Critically high 74-106 [facility] Comment on above: Performed By: #### C MP #### [facility] [address] [address] Edward Tana Potassium [Moles/Vol] 4.1 mmol/L Normal 3.4-5.0 [facility] Comment on above: Performed By: #### C MP #### [facility] [address] [address] Edward Tana Protein [Mass/Vol] 7.5 g/dL Normal 6.1-8.2 [facility] Comment on above: Performed By: #### C MP #### [facility] [address] [address] Edward Tana Sodium [Moles/Vol] 140 mmol/L Normal 137-145 [facility] Comment on above: Performed By: #### C MP #### [facility] [address] [address] Edward Tana Urea nitrogen [Mass/Vol] 12.0 mg/dL Normal 9.0-20.0 [facility] Comment on above: Performed By: #### C MP #### [facility] [address] [address] Edward Tana Urea nitrogen/Creatinine [Mass ratio] 13.2 mg/mg Normal [facility] Comment on above: Performed By: #### C MP #### [facility] [address] [phone] Edward Tana CBC AUTO DIFFon 02-01-2020 BASO # 0.1 103/ul Normal 0.0-0.1 [facility] Comment on above: Performed By: #### C BC #### [facility] [address] [place], [place] [address] Edward Tana Basophils/100 WBC (Bld) 0.4 % Normal 0.2-2.0 [facility] Comment on above: Performed By: #### C BC #### [facility] [address] [address] Edward Tana EO # 0.1 103/ul Normal 0.0-0.7 [facility] Comment on above: Performed By: #### C BC #### [facility] [address] [place], [place] [phone] Edward Tana Eosinophils/100 WBC (Bld) 0.9 % Normal 0.9-7.0 [facility] Comment on above: Performed By: #### C BC #### [facility] [address] [place] [address] Edward Tana Erythrocyte distribution width (RBC) [Ratio] 13.3 % Normal 11.0-15.0 [facility] Comment on above: Performed By: #### C BC #### [facility] [address] [place] [address] Edward Tana Hematocrit (Bld) [Volume fraction] 55.7 % Critically high 42.0-54.0 [facility] Comment on above: Performed By: #### C BC #### [facility] [address] [place] [address] Edward Tana Hemoglobin (Bld) [Mass/Vol] 18.9 g/dL Critically high 14.0-18.0 [facility] Comment on above: Performed By: #### C BC #### [facility] [address] [place] [address] Edward Tana IG # 0.05 10e3/ul Critically high 0.00-0.03 [facility] Comment on above: Performed By: #### C BC #### [facility] [address] [place] [address] Edward Tana IG % 0.4 % Normal 0.0-0.5 [facility] Comment on above: Performed By: #### C BC #### [facility] [address] [place] [address] Edward Tana LYMPH # 1.5 103/ul Normal 1.2-3.8 [facility] Comment on above: Performed By: #### C BC #### [facility] [address] [id number] Edward Tana Lymphocytes/100 WBC (Bld) 10.8 % Critically low 20.5-60.0 [facility] Comment on above: Performed By: #### C BC #### [facility] [address] [id number] Edward Tana MANUAL DIFF REQ NO Normal [facility] Comment on above: Performed By: #### C BC #### [facility] [address] [id number] Edward Tana MCH (RBC) [Entitic mass] 33.1 pg Normal 25.9-34.0 [facility] Comment on above: Performed By: #### C BC #### [facility] [address] [place] [address] Edward Tana MCHC (RBC) [Mass/Vol] 33.9 g/dL Normal 29.9-35.2 [facility] Comment on above: Performed By: #### C BC #### [facility] [address] [place] [address] Edward Tana MCV (RBC) [Entitic vol] 97.5 fL Critically high 80.0-94.0 [facility] Comment on above: Performed By: #### C BC #### [facility] [address] [place], [place] [id number] Edward Tana MONO # 1.1 103/ul Critically high 0.3-0.8 [facility] Comment on above: Performed By: #### C BC #### [facility] [address] [place], [place] [id number] Edward Tana Monocytes/100 WBC (Bld) 8.0 % Normal 1.7-12.0 [facility] Comment on above: Performed By: #### C BC #### [facility] [address] [place], [place] [id number] Edward Tana NEUT # 11.1 103/ul Critically high 1.4-6.5 The [facility] Comment on above: Performed By: #### C BC #### [facility] [address] [place], [place] [id number] Edward Tana Neutrophils/100 WBC (Bld) 79.5 % Critically high 43.0-75.0 [facility] Comment on above: Performed By: #### C BC #### [facility] [address] [place], [place] [id number] Edward Wilkinsen Platelet mean volume (Bld) [Entitic vol] 10.1 fL Normal 9.5-13.5 [facility] Comment on above: Performed By: #### C BC #### [facility] [address] [place] [address] Edward Wilkinsen PLT 280 103/ul Normal 150-450 [facility] Comment on above: Performed By: #### C BC #### [facility] [address] [place] [address] Edwardfrankie Wilkinsen RBC 5.71 106/ul Normal 4.70-6.10 [facility] Comment on above: Performed By: #### C BC #### [facility] [address] [place], [place] [id number] Edwardfrankie Wilkinsen WBC 13.9 103/ul Critically high 4.0-11.0 [facility] Comment on above: Performed By: #### C BC #### [facility] [address] [place], [place] [id number] Edward Fajardo PROF 14(COMP METB)on 020 Albumin [Mass/Vol] 3.0 g/dL Critically low 3.5-5.0 Th [facility] Comment on above: Performed By: #### C MP #### [facility] [address] [place], [place] [id number] Edward Fajardo Albumin/Globulin [Mass ratio] 0.7 {ratio} Normal [facility] Comment on above: Performed By: #### C MP #### [facility] [address] [place], [place] [id number] Edward Fajardo ALP [Catalytic activity/Vol] 86 U/L Normal 38-126 [facility] Comment on above: Performed By: #### C MP #### [facility] [address] [place], [place] [id number] Edward Fajardo ALT [Catalytic activity/Vol] 49 U/L Normal 21-72 [facility] Comment on above: Performed By: #### C MP #### [facility] [address] [place], [place] [address] Edward Tana Anion gap [Moles/Vol] 11.2 mmol/L Normal Th [facility] Comment on above: Performed By: #### C MP #### [facility] [address] [id number] Edward Tana AST [Catalytic activity/Vol] 28 U/L Normal 17-59 [facility] Comment on above: Performed By: #### C MP #### [facility] [address] [id number] Edward Tana Bilirubin [Mass/Vol] 0.6 mg/dL Normal 0.2-1.3 [facility] Comment on above: Performed By: #### C MP #### [facility] [address] [id number] Edward Tana Calcium [Mass/Vol] 9.4 mg/dL Normal 8.4-10.2 [facility] Comment on above: Performed By: #### C MP #### [facility] [address] [phone] Edward Tana Chloride [Moles/Vol] 102 mmol/L Normal 98-107 [facility] Comment on above: Performed By: #### C MP #### [facility] [address] [phone] Edward Tana CO2 [Moles/Vol] 28.1 mmol/L Normal 22.0-30.0 [facility] Comment on above: Performed By: #### C MP #### [facility] [address] [phone] Edward Tana Creatinine [Mass/Vol] 0.70 mg/dL Normal 0.66-1.25 [facility] Comment on above: Performed By: #### C MP #### [facility] [address] [place], [place] [address] Edward Tana EGFR-AF SWISS >60 Normal >=60 [facility] Comment on above: Performed By: #### C MP #### [facility] [address] [phone] Edward Tana EGFR-NON AF SWISS >60 Normal >=60 [facility] Comment on above: Performed By: #### C MP #### [facility] [address] [phone] Edward Tana Globulin (S) [Mass/Vol] 4.6 g/dL Normal [facility] Comment on above: Performed By: #### C MP #### [facility] [address] [address] Edward Tana Glucose [Mass/Vol] 126 mg/dL Critically high 74-106 [facility] Comment on above: Performed By: #### C MP #### [facility] [address] [address] Edward Tana Potassium [Moles/Vol] 3.3 mmol/L Critically low 3.4-5.0 [facility] Comment on above: Performed By: #### C MP #### [facility] [address] [place] [address] Edward Tana Protein [Mass/Vol] 7.6 g/dL Normal 6.1-8.2 [facility] Comment on above: Performed By: #### C MP #### [facility] [address] [place] [address] Edward Tana Sodium [Moles/Vol] 138 mmol/L Normal 137-145 [facility] Comment on above: Performed By: #### C MP #### [facility] [address] [address] Edward Tana Urea nitrogen [Mass/Vol] 9.0 mg/dL Normal 9.0-20.0 [facility] Comment on above: Performed By: #### C MP #### [facility] [address] [place], [place] [id number] Edward Tana Urea nitrogen/Creatinine [Mass ratio] 12.9 mg/mg Normal [facility] Comment on above: Performed By: #### C MP #### [facility] [address] [place], [place] [id number] Edward Tana Vital Signs Date Time Vital Sign Value Performing Clinician Facility 2023 13:19-0500 Blood Pressure Location [employer] [facility] [place] 2023 13:19-0500 Diastolic blood pressure 84 mm[Hg] Benjamin NILL [facility] [place] 2023 13:19-0500 Heart rate 76 /min Benjamin NILL General [facility] [place] 2023 13:19-0500 Respiratory rate 16 /min Benjamin NILL [facility] [place] 2023 13:19-0500 Systolic blood pressure 132 mm[Hg] Benjamin NILL [facility] 12-03-2022 11:30-0400 Body height 177.8 cm Verna Ordoñez Other [facility] Other 12-03-2022 11:30-0400 Body mass index (BMI) [Ratio] 35.55 kg/m2 Verna Ordoñez Other [facility] Other 12-03-2022 11:30-0400 Body temperature 97.3 [degF] Verna Ordoñez Other [facility] Other 12-03-2022 11:30-0400 Body weight 112.4 kg Verna Ordoñez Other [facility] Other 12-03-2022 11:30-0400 Diastolic blood pressure 98 mm[Hg] Verna Ordoñez Other [facility] Other 12-03-2022 11:30-0400 Respiratory rate 18 /min Verna Ordoñez Other [facility] Other 09-19-2023 11:30-0400 SaO2% (BldA) [Mass fraction] 93 % Verna Ordoñez Other [facility] Other 12-03-2022 11:30-0400 Systolic blood pressure 148 mm[Hg] Verna Ordoñez Other [facility] Other Encounters Encounter Date Encounter Type Care Provider Facility Start: 07-29-2023 ambulatory SHIRLEY Avinai ty:TEE Gutiérrez Start: 2023 End: 05-07-2023 ambulatory Benjamin THURMAN [facility] Start: 2023 End: 2023 Patient encounter procedure Benjamin THURMAN General Surgery Nill/Said [place] Start: 04-15-2023 ambulatory SHIRLEY ESTRADA Facility :[facility] Start: 03-31-2023 End: 03-31-2023 ambulatory NILDA AICHHOLZ Not Available Start: 02-17-2023 End: 02-17-2023 ambulatory NILDA AICHHOLZ Not Available Start: 12-03-2022 End: 12-03-2022 ambulatory Verna Ordoñez Other [facility] Other Start: 12-03-2022 Office outpatient ne w 30 minutes Verna Ordoñez [facility] Start: 01-09-2021 End: 01-09-[address] HEATHER HOBBS Facility:[facility] Start: 07-17-2020 End: 07-18-2020 ambulatory TELECINE OPERATOR NILDA AICHHOLZ Facility:[facility] Start: 04-13-2020 Encounter for preprocedural laboratory examination DR BENJAMIN THURMAN [facility] Start: 04-12-2020 End: 04-12-2020 ambulatory TELECINE OPERATOR NILDA AICHHOLZ Facility:[facility] Start: 04-08-2020 End: 04-09-2020 ambulatory TELECINE OPERATOR NILDA AICHHOLZ Facility:[facility] Start: 04-08-2020 End: 04-09-2020 Encounter for preprocedural laboratory examination REINALDO CHEEMA Facility:[facility] Start: 03-15-2020 End: 03-16-2020 ambulatory REINALDO CHEEMA Facility:[facility] Start: 03-03-2020 End: 03-04-2020 ambulatory REINALDO CHEEMA Facility:[facility] Start: 02-24-2020 End: 02-25-2020 ambulatory REINALDO CHEEMA Facility:[facility] Start: 02-01-2020 End: 02-02-2020 ambulatory REINALDO CHEEMA Facility:[facility] Procedures Date Procedure Procedure Detail Performing Clinician Start: 04-12-2020 Colonoscopy Benjamin ARCHIBALD Repair of umbilical hernia Suellen galvan JOSE Immunizations Immunization Date Immunization Notes Care Provider Fa cility NEGATED: Highlighted row has not occurred!2023 influenza virus vaccine, unspecified formulation Benjamin THURMAN [facility] [place] Payers Date Payer Category Payer Private Health Insurance [id number] 1960 Unknown [id number] 2.16.84 [id number] 1960 Unknown [id number] 2.16.84 [id number] 1961 Unknown [id number] 2.16.84 [id number] 1961 Unknown [id number] 2.16.84 [id number] 1961 Unknown [id number] 2.16.84 [id number] 1961 Unknown [id number] 2.16.84 [id number] 1961 Unknown [id number] 2.16.84 [id number] 1961 Unknown [id number] 2.16.84 [id number] 1961 Unknown [id number] 2.16.84 [id number] 1961 Unknown [id number] 2.16.840 .[id number] 1961 Unknown [id number] 2.16.8 [id number] 1961 Unknown [id number] 2.16.8 [id number] 1958 Private Health Insurance [id number] 1958 Unknown [id number] Self-pay Social History Date Type Detail Facility Unknown if ever smoked [facility] Other Sex Assigned At [facility] Start: 2023 Tobacco smoking status Heavy t obacco smoker (finding) General Surgery [facility] Tobacco smoking status Never Gener al Surgery [facility] Functional Status Date Assessment Result Facility 2023 Functional Status N/A [facility] Clinical Note 2023 Note Date & Type Note Facility 2023 Note Chief Complaint consultation for colonoscopy HPI Staff 63 year old male presents on consultation from Nilda Cheema for surveillance colonoscopy. Last colonoscopy completed 03/2020 with multiple tubular adenomas. Denies abdominal or rectal pain. No rectal bleeding or change in bowel habits. Denies nausea or vomiting. No unexplained weight loss. Father with history of colon cancer, age unknown. History of Present Illness 63 yo male with h/o htn, DMII, hyperlipidemia, COPD, personal h/o colon polyps, referred for surveillance colonoscopy; last colonoscopy 03/2020 with removal of 6 tubular adenomas, largest 2 cm in ascending colon; patient denies change in bms or blood in stools, no abd complaints; abd operations significant for umbilical herniorrhaphy; on baby asa, no NSAID use; fmhx of colon cancer in patient's father, dx in his 70's; no fmhx of IBD; smokes daily. Review of Systems PHQ Score Initial Depression Screen Score: 0 SCORE ROS - Provider Constitutional: no fever, no sweats, no weight loss. Eyes: no glasses, no blurred vision, no visual loss. ENMT: no dentures, no hoarseness, no swallowing difficulties, no hearing loss, no ear infection(s), no nose bleeds. Cardiovascular: normal blood pressure, no chest pain, regular heartbeat, no heart murmur. Respiratory: no shortness of breath, no cough, no asthma, no wheezing. Gastrointestinal: no nausea, no vomiting, no diarrhea, no constipation, no blood in stool, no change in bowel habits, no abdominal pain, no hepatitis. Genitourinary: no kidney [...] noncontributory. Physical Exam Vitals & Measurements HR: 76(Peripheral) RR: 16 BP: 132/84 HT: 70 in HT: 177.8 cm WT: 111 kg WT: 244.2 lb BMI: 35.11 HEENT: normal conjunctiva, sclera clear, no scleral icterus, EOM intact, PERRLA, oral mucosa moist without lesions. Neck: trachea midline, no mass, symmetric, no thyromegaly or nodules, no adenopathy Respiratory: lungs expiratory wheezes, respirations non labored. Cardiovascular: regular rate and rhythm, no murmur, no pedal edema or varicosities. Gastrointestinal: soft, non distended, no tenderness, no masses, no palpable hernias, diastasis recti no, no hepatosplenomegaly; normal bs Lymphatic: no cervical adenopathy, no axillary adenopathy, no inguinal adenopathy. Musculoskeletal: normal gait, digits and nails without infection, nodes, cyanosis, clubbing. Skin: no rashes, no lesions, no ulcers, no subcutaneous nodules, induration. Psychiatric/Neuro: oriented to time, place, person, judgement normal, affect appropriate for age, insight intact, no focal deficits. Tests: , review of old records completed , Discussed surgical options, risks, and possible complications with patient. Assessment/Plan 1. Personal history of colonic polyps (Z86.010: Personal history of colonic polyps) plan surveillance colonoscopy under anesthesia, informed consent obtained. Ordered: E&M of Est. Patient Low 20-29 Min [id number] Follow-up No qualifying data available Problem List/Past Medical History Ongoing BMI 35.0-35.9,adult BRBPR (bright red blood per rectum) Chronic obstructive pulmonary disease DDD (degenerative disc disease), lumbar Diverticulosis Frequent loose stools History of diverticulitis Hypertension Morbid obesity Personal history of colonic polyps Secondary polycythemia Serrated adenoma of colon Solitary nodule of lung Tobacco user Tubular adenoma of colon Type 2 diabetes mellitus Historical Abdominal pain, LLQ Blood glucose elevated Change in bowel habits Procedure/Surgical History Colonoscopy (04/12/2020), Repair of umbilical hernia. Medications Albuterol (Eqv-ProAir HFA), 2 puff(s), Inhalation, q6hr, PRN aspirin 81 mg Chew Tab, 81 mg= 1 tab(s), Chewed, Daily lisinopril 20 mg Tab, 20 mg= 1 tab(s), Oral, Daily metformin 1000 mg Tab, 1000 mg= 1 tab(s), Oral, BID Trelegy Ellipta 100 mcg-62.5 mcg-25 mcg inhalation powder, 1 puff(s), Inhalation, Daily Allergies No Known Allergies No Known Medication Allergies Social History Alcohol Current, Beer, Daily, 2023 Substance Abuse Current, Marijuana, Daily, 03/28/2020 Tobacco 10 or more cigarettes (1/2 pack or more)/day in last 30 days Tobacco Use:. Never Smokeless Tobacco Use:. Cigarettes, 2 per day. Started age 14.0 Years. Yes, 2023 Family History Primary malignant neoplasm of colon: Father. Immunizations Vaccine Date (more content not included)... [facility] Comment on above: Result Comment: Elec tronically Signed By: JOSE STRONG, Benjamin Cohn\Date and Time Signed: 05/06/23 13:49 EST Evaluation note 12-03-2022 Note Date & Type Note Facility 12-03-2022 Evaluation note Encounter Date Diagnosis Assessment Notes Nov, COPD exacerbation (ICD-10 - J44.1) Patient declines COVID testing. Discussed with patient exam is consistent with COPD exacerbation. Discussed likely started as viral URI. Covering with azithromycin given comorbidity of COPD. Finish entire course. May use Mucinex DM [id number] . Prednisone burst and as needed albuterol inhaler sent. Follow-up with PCP for recheck in the next 5 to 7 days, sooner if significantly worsening. Discussed with chronic condition of COPD is important he follows up regularly with PCP. Encouraged to quit smoking. Patient verbalized understanding of treatment plan. [facility] Other Clinical Note 04-12-2020 Note Date & [...] sent to Recovery Room in good condition. [facility] Signed and Approved by: DR BENJAMIN THURMAN . 04/13/2020 09:02:00 [facility] Evaluation + Plan note Note Date & Type Note Facility Evaluation + Plan note Future Appointments Appointment Date:07/29/2023 01:20:00 PM Scheduled Provider:SHIRLEY ESTRADA PA-C Location:[facility] Appointment Type:URO New Patient General Surgery [place] Hospital course Narrative Note Date & Type Note Facility Hospital course Narrative No data available for this section General Surgery [place] [facility] Discharge instructions Note Date & Type Note Facility Hospital Discharge instructions No data available for this section General Surgery [place] Progress note Note Date & Type Note Facility Progress note No data available for this section General Surgery [place] Summary Purpose Family History No Family History Records FoundNo Family History Records Found No data available for this section No Family History Records Found Advance Directives No Advanced Directives Records FoundNo Advanced Directives Records FoundNo Advanced Directives Records Found Additional Source Comments (unrecognized sect ion and content) No Status Records FoundNo Status Records FoundNo Status Records Found INFORMATION SOURCE (unrecogn ized section and content) DATE CREATED AUTHOR 01/12/[address] [facility] pital DATE CREATED AUTHOR AUTHOR'S ORGANIZ ATION 04/01/2023 [facility] EPIC DATE CREATED AUTHOR AUTHOR'S ORGANIZ ATION 05/14/2023 [facility] REASON FOR VISIT (unrecogniz ed section and content) COUGH, CONGESTION, OUT OF BR EATH Patient Care team informatio n (unrecognized section and content) Personnel Name: SYLVIEShirleyOBI NAJERA NILDA J Address: Address: [address] [place] [address] FOR RECORDS PERTAINING TO PATIENTS WHO ARE [...] BE BASED ON THE PRIMARY CLINICAL RECORDS. [facility]. provides no warranty or guarantee of the accuracy or completeness of information in this document.
[2023-05-21 07:23] VITALS: BMI 28.3
[2023-05-21 07:24] LABS: Glucometer 125 mg/dL (74-106)
[2023-05-21] MEDS: LACTATED RINGER'S SOLUTION 1,000 ML 50 ML IV (07:33)
[2023-05-21 08:58] VITALS: BP 113/76; PULSE 91; RESP 18; TEMP 36.3; O2SAT 94
[2023-05-21 09:13] VITALS: BP 113/69; PULSE 86; RESP 18; O2SAT 96
[2023-05-21 09:28] VITALS: BP 117/71; PULSE 77; RESP 18; O2SAT 99
== END 2023-05-21 09:45 | disposition home or self-care (01) ==
PROVIDERS: PCP Nurse Practitioner; Visit Provider Surgery
PROC: (CPT 00811; principal; 2023-05-21 08:00)
DX: K63.5 Polyp of colon (principal); Z86.010 Personal history of colon polyps; K57.30 Diverticulosis of large intestine without perforation or abscess without bleeding; E11.9 Type 2 diabetes mellitus without complications; I10 Essential (primary) hypertension; J44.9 Chronic obstructive pulmonary disease, unspecified; M51.36 Other intervertebral disc degeneration, lumbar region; D75.1 Secondary polycythemia; E66.01 Morbid (severe) obesity due to excess calories; F17.210 Nicotine dependence, cigarettes, uncomplicated; Z79.82 Long term (current) use of aspirin; Z79.84 Long term (current) use of oral hypoglycemic drugs; Z68.35 Body mass index [BMI] 35.0-35.9, adult
CPT/HCPCS: 00811; 45380; 45385; 36415; 82948; 88305; 99999; J1094; J2704

== ENCOUNTER 2023-07-24 06:40 | Outpatient (OUT) | payer OTHER, SELFPAY ==
--- OUTSIDE RECORDS SUMMARY | 2023-07-24 06:43 | XMS_ITS | CCD ---
Author Organization [facility] Care Team Providers Care Spotter Driver Name Role Phone AICHHOLZ, SPINNER TENDER NILDA Admitting Unavailable AICHHOLZ, SPINNER TENDER NILDA Attending Unavailable AICHHOLZ, SPINNER TENDER NILDA Consulting Unavailable AICHHOLZ, SPINNER TENDER NILDA Primary Care Unavailable AICHHOLZ, SPINNER TENDER NILDA Primary Care Unavailable AICHHOLZ, SPINNER TENDER NILDA Consulting Unavailable AICHHOLZ, SPINNER TENDER NILDA Admitting Unavailable AICHHOLZ, SPINNER TENDER NILDA Attending Unavailable AICHHOLZ, SPINNER TENDER NILDA Admitting Unavailable AICHHOLZ, SPINNER TENDER NILDA Attending Unavailable AICHHOLZ, SPINNER TENDER NILDA Consulting Unavailable AICHHOLZ, SPINNER TENDER NILDA Primary Care Unavailable ZIEBER, DR HEATHER Wagner Consulting Unavailable AICHHOLZ, SPINNER TENDER NILDA Admitting Unavailable AICHHOLZ, SPINNER TENDER NILDA Attending Unavailable AICHHOLZ, SPINNER TENDER NILDA Primary Care Unavailable AICHHOLZ, SPINNER TENDER NILDA Consulting Unavailable AICHHOLZ, SPINNER TENDER NILDA Primary Care Unavailable NILL, DR ALEXANDER Consulting Unavailable NILL, DR ALEXANDER Admitting Unavailable NILL, DR ALEXANDER Attending Unavailable ZIEBER, DR HEATHER Wagner Consulting Unavailable REQUEST, DR LLANES LISTED Primary Care Unavaila ble NAIF LOMAX Admitting Unavailable NAIF LOMAX Attending Unavailable NAIF LOMAX Consulting Unavailable AICHHOLZ, SPINNER TENDER NILDA Primary Care Unavailable NILL, DR ALEXANDER Consulting Unavailable NILL, DR ALEXANDER Admitting Unavailable NILL, DR ALEXANDER Attending Unavailable MILKA STEPHENS Consulting Unavailable AICHHOLZ, SPINNER TENDER NILDA Primary Care Unavailable SHAIKH GALE Consulting Unavailable BALJINDER, WILLIAMSON Admitting Unavailable SHAIKH GALE Attending Unavailable Verna Ordoñez Unavailable NILDA CHEEMA Primary Care Physician [phone] Nilda Cheema Primary Care Unavailable Benjamin Thurman Attending Unavailable Benjamin Thurman Admitting Unavailable SHIRLEY ESTRADA Attending Unavailable NILDA CHEEMA Referring Unavailable Benjamin THURMAN Attending Unavailable Benjamin THURMAN Attending Unavailable JOSE, Benjamin Wagner Attending Unavailable NILDA CHEEMA Referring Unavailable NILDA CHEEMA Attending Unavailable NILDA CHEEMA Attending Unavailable NILDA CHEEMA Attending Unavailable Allergies Allergy Classification Reported Allergen(s) Allergy Type Date of Onset Reaction(s) Facility (1 source) No Known Medication Allergies; Translations: [No Known Medication Allergies] Propensity to adverse reactions (disorder) [facility] Repository Medications Current Medications Medication Drug Class(es) Dates Sig (Normalized) Sig (Original) Albuterol (3 sources) beta2-Adrenergic Agonist Start: 04-16-2023 take 2 [...] Nov, Active aspirin 81 mg chewable tablet (2 sources) Platelet Aggregation Inhibitor, Nonsteroidal Anti-inflammatory Drug Start: [...] Nov, Active lisinopril 20 mg oral tablet (2 sources) Angiotensin Converting Enzyme Inhibitor Start: 04-16-2023 take 1 tablet by mouth once daily lisinopril 20 mg Tab 20 mg = 1 tab(s), Oral, Daily, Refills(s) 0 Start Date: 04/16/23 Status: Ordered metFORMIN hydrochloride 1000 mg oral tablet (2 sources) Biguanide Start: 04-16-2023 take 1 tablet by [...] Ellipta 100 mcg-62.5 mcg-25 mcg inhalation powder (2 sources) Start: 04-16-2023 take 1 puff(s) by inhalation once daily Trelegy Ellipta 100 mcg-62.5 mcg-25 mcg inhalation powder = 1 puff(s), Inhalation, Daily, Refills(s) 0 Start Date: 04/16/23 Status: Ordered Problems Active Problems Problem Classification Problem Date Documented Da te Episodic/Chronic Abdominal pain (2 sources) Left lower quadrant pain 04-16-2023 Episodic Chronic obstructive pulmonary disease and bronchiectasis (5 sources) Chronic obstructive pulmonary disease, unspecified; Translations: [Acute exacerbation of chronic obstructive airways disease] Onset: 04-18-2020 Chronic Diabetes mellitus without complication (2 sources) Type 2 diabetes mellitus 04-16-2023 Chronic Diabetes mellitus without complication (6 sources) Hyperglycemia, unspecified; Translations: [Hyperglycemia] Onset: 07-17-2020 Episodic Diverticulosis and diverticulitis (7 sources) Diverticulosis of large intestine without perforation or abscess without bleeding; Translations: [Diverticulitis of intestine, part unspecified, without perforation or abscess without bleeding] Onset: 03-03-2020 Chronic Essential hypertension (2 sources) Hypertensive disorder 04-16-2023 Chronic Gastrointestinal hemorrhage (7 sources) Hemorrhage of anus and rectum; Translations: [Gastrointestinal hemorrhage] Onset: 03-06-2020 Episodic Other and unspecified benign neoplasm (3 sources) History of polyp of colon; Translations: [Personal history of colonic polyps] Onset: 2023 Episodic Other and unspecified benign neoplasm (2 sources) Adenomatous polyp of colon 04-19-2020 Episodic Other and unspecified benign neoplasm (2 sources) Tubular adenoma of colon 04-19-2020 Episodic Other and unspecified benign neoplasm (1 source) Benign neoplasm of colon; Translations: [Benign neoplasm of colon, unspecified] Onset: 06-03-2023 Episodic Other gastrointestinal disorders (2 sources) Alteration in bowel elimination 04-16-2023 Episodic Other gastrointestinal disorders (2 sources) Diarrhea 03-28-2020 Episodic Other gastrointestinal disorders (2 sources) History of diverticulitis 03-24-2020 Episodic Other hematologic conditions (2 sources) Secondary polycythemia 04-16-2023 Episodic Other lower respiratory disease (2 sources) Solitary nodule of lung 04-16-2023 Episodic Other nutritional; endocrine; and metabolic disorders (2 sources) Body mass index 30+ - obesity 2023 Chronic Other nutritional; endocrine; and metabolic disorders (2 sources) Morbid obesity 2023 Chronic Residual codes; unclassified (2 sources) Tobacco user 03-22-2020 Episodic Spondylosis; intervertebral disc disorders; other back problems (2 sources) Degeneration of lumbar intervertebral disc 04-16-2023 Chronic [...] Test Name Value Interpretation Reference Range Facility Ambulatory Visit Summaryon 0 06-03-2023 Ambulatory Visit Summary PATRICK AKHTAR :1960 Visit Date:06/03/2023 Ambulatory Visit Instructions Your Diagnosis Serrated adenoma of colon Your Care Team Attending Physician - JOSE STRONG, Benjamin Wagner Primary Care Physician - BRENDA NAJERA, NILDA Mcnulty This Is Your Medications List Contact prescribing physician if questions or concerns albuterol (Albuterol (Eqv-ProAir HFA)) aspirin (aspirin 81 mg Chew Tab) fluticasone/umeclidi nium/vilanterol (Trelegy Ellipta 100 mcg-62.5 mcg-25 mcg inhalation powder) lisinopril (lisinopril 20 mg Tab) metformin (metformin 1000 mg Tab) Procedures Performed Colonoscopy (05/21/2023), Colonoscopy (04/12/2020), Repair of umbilical hernia. What to do next Scheduled Follow-Up Appointments Friday. 2023 1:20 PM EDT With: SHIRLEY ESTRADA PA-C Where: [facility] General Surgery Office/Clini c Noteon 06-03-2023 General Surgery Office/Clinic Note Chief Complaint post operative follow up HPI Staff 13 day post operative follow up post colonoscopy with sigmoid polypectomy x 5. History of Present Illness s/p colonoscopy with polypectomy x 5 for sigmoid polyps, serrated adenomas; doing well, no abd pain or blood in stools. Review of Systems ROS [...] and are negative or noncontributory. Assessment/Plan 1. Serrated adenoma of colon (D12.6: Benign neoplasm of colon, unspecified) plan surveillance colonoscopy in 3 years, call sooner if problems/questions. Follow-up No qualifying data available Problem List/Past [...] Change in bowel habits Procedure/Surgical History Colonoscopy (05/21/2023), Colonoscopy (04/12/2020), Repair of umbilical hernia. Medications [...] neoplasm of colon: Father. Immunizations Vaccine Date Status Comments influenza virus vaccine, inactivated - Not Given Patient Refuses Normal [facility] Comment on above: Result Comment: Elec tronically Signed By: JOSE STRONG, Benjamin Cohn\Date and Time Signed: 06/03/23 14:10 EDT Reminderson 06-03-2023 Reminders - From: Peggy Conklin LPN To: N - Clinical; Sent: 06/03/2023 14:02:01 EDT Show up: 04/22/2026 07:00:00 EST Subject: colonoscopy recall Due Date/Time: 05/20/2026 07:00:00 EST Reminder/Recall Patient due for surveillance colonoscopy 05/20/2026 due to history of multiple serrated polyps. Normal [facility] Outside Colonoscopyon 2023 Outside Colonoscopy [id number] #1.00TIFF Normal [facility] Pathology Noteon 05-29-2023 Pathology Note [id number] #1.00TIFF Normal [facility] Lab Reportson 05-22-2023 Lab Reports [id number] #1.00TIFF Normal [facility] [place] 05-21-2023 L Specimen: [id number] Received: 05/21/23 Status: ANNABELLA Remahsa Num: [id number] Spec Type: Surgical Subm Dr: Benjamin Thurman MD FACS Tissues: A Colon Biopsy (SIGMOID POLYP X2) B Colon Biopsy (DISTAL SIGMOID POLYP X3) C Colon Biopsy (BX INFLAMED SIGMOID MUCOSA) Procedures: HE/6, Gross/Micro L4/3 Age/ Patient Sex Location Account Attending Physician Avel Akhtar 63/M LABELL [id number] Benjamin Thurman MD FACS SPEC NUM: [id number] RECD: 05/21/23 STATUS: ANNABELLA VALENTIN NUM: [id number] TAMI: 05/21/23 [facility] DR: Benjamin Thurman MD FACS ENTERED: 05/21/[address] [facility] DR: Marla,Lab SPEC TYPE: Surgical DEPT: [facility] ORDERED: HE/6, Gross/Micro L4/3 ORDERED: HE/6, Gross/Micro L4/3 Pathological Diagnosis A. Polyp, Sigmoid Colon, Biopsy: Serrated Adenoma. - Negative For High Grade Dysplasia And Malignancy. B. Polyp, Distal Sigmoid Colon, Biopsy: Serrated Adenoma. - Negative For High Grade Dysplasia And Malignancy. C. Sigmoid Colon, Biopsy: Mucosal hemorrhage. Clinical Information Sigmoid colon polyp x 2, distal sigmoid colon polyp x 3, inflamed sigmoid mucosa Gross Description A. Received in formalin labeled with the patient's name, date of and sigmoid colon polyp #1 are three mac tissues ranging from 0.2 cm to 0.8 x 0.7 x 0.4 cm. Entirely submitted in one cassette labeled A1. B. Received in formalin labeled with the patient's name, date of and distal sigmoid colon polyp are five mac tissues ranging from 0.2 cm to 1.0 x 0.6 x 0.3 cm. Entirely submitted in one cassette labeled B1. Specimen: [id number] Received: 05/21/23 Status: ANNABELLA Valentin Num: [id number] Spec Type: Surgical Subm Dr: Benjamin Thurman MD FACS Tissues: A Colon Biopsy (SIGMOID POLYP X2) B Colon Biopsy (DISTAL SIGMOID POLYP X3) C Colon Biopsy (BX INFLAMED SIGMOID MUCOSA) Procedures: HE/6, Gross/Micro L4/3 Patient: Avel Akhtar [id number] (Continued) Specimen: [id number] Received: 05/21/23 (Continued) Gross Description (Continued) Signed (signature on file) Adolfo Estes MD 05/26/23 1336 Specimen: [id number] Received: 05/21/23 Status: ANNABELLA Valentin Num: [id number] Spec Type: Surgical Subm Dr: Benjamin Thurman MD FACS Tissues: A Colon Biopsy (SIGMOID POLYP X2) B Colon Biopsy (DISTAL SIGMOID POLYP X3) C Colon Biopsy (BX INFLAMED SIGMOID MUCOSA) Procedures: HE/6, Gross/Micro L4/3 Patient: Avel Akhtar [id number] (Continued) Specimen: [id number] Received: 05/21/23 (Continued) Gross Description (Continued) C. Received in formalin labeled with the patient's name, date of and biopsy of inflamed sigmoid mucosa are three mac tissues ranging from 0.1 cm to 0.4 x 0.3 x 0.2 cm. Entirely submitted in one cassette labeled C1. CPT Codes 26130q7 Specimen: [id number] Received: 05/21/23 Status: ANNABELLA Valentin Num: [id number] Spec Type: Surgical Subm Dr: Benjamin Thurman MD FACS Tissues: A Colon Biopsy (SIGMOID POLYP X2) B Colon Biopsy (DISTAL SIGMOID POLYP X3) C Colon Biopsy (BX INFLAMED SIGMOID MUCOSA) Procedures: HE/6, Gross/Micro L4/3 Patient: Pj Akhtarcollin Garcia [id number] (Continued) Signed (signature on file) Adolfo Estes MD 05/26/23 1336 [facility] Consent for Procedure/Surger yon 05-08-2023 Consent for Procedure/Surgery [id number] #1.00TIFF [facility] Facesheeton 05-07-2023 Facesheet [id number] #1.00TIFF [facility] Ambulatory Visit Summaryon 0 2023 Ambulatory Visit Summary PATRICK AKHTAR :1960 Visit Date:2023 Ambulatory Visit Instructions Your Care Team Attending Physician - JOSE STRONG, Benjamin Wagner Primary Care Physician - NILDA CHEEMA CNP Referring Physician - NILDA CHEEMA CNP This Is Your Medications List Contact prescribing physician if questions or concerns albuterol (Albuterol (Eqv-ProAir HFA)) aspirin (aspirin 81 mg Chew Tab) fluticasone/umeclidi nium/vilanterol (Trelegy Ellipta 100 mcg-62.5 mcg-25 mcg inhalation [...] Appointments Friday. 2023 1:20 PM EDT With: SEAN MARION, SHIRLEY Mensah Where: [facility] Physician Referralon 024 Physician Referral [id number] #1.00TIFF Normal [facility] XR LSPINE 2_3 VIEWSon 2020 XR LSPINE [...] by: HEATHER HOBBS Date: 2021-01-09 11:[address] [facility] GLYCOHEMOGLOBIN A1Con 2020 ADA RECOMMENDATION ADA THERAPEUTIC TARGET 6.0 - 7.0 ACTION SUGGESTED > 7.[address] [facility] Comment on above: Performed By: #### A 1C #### [facility] [address] [address] Edward Fajardo Glucose [Mass/Vol] 123 mg/dL Normal [facility] Comment on above: Performed By: #### A 1C #### [facility] [address] [id number] Edward Fajardo HbA1c (Bld) [Mass fraction] 5.9 % Normal <=6.0 [facility] Comment on above: Performed By: #### A 1C #### [facility] [address] [id number] Edward Fajardo Covid-19 PCR (CVDTBH)on 03-18 EUA Statement SEE BELOW Normal [facility] Comment on above: Result Comment: This test is not yet approved or cleared by the [place] FDA. When there are no FDA-approved or cleared tests available, and other criteria are met, FDA can make tests available under an emergency access mechanism called an Emergency Use Authorization (EUA). The EUA for this test is supported by the [place] of Health and Human Service?s (HHS?s) declaration [...] SARS-CoV-2. Performed By: #### C VDTB #### [facility] [address] [address] Edward Fajardo SARS-CoV-2 (COVID-19) RNA ADELFO+probe Ql (Unsp spec) Not detected Normal NOT DETECTED [facility] Comment on above: Result Comment: This test is not yet approved or cleared by the [place] FDA. When there are no FDA-approved or cleared tests available, and other criteria are met, FDA can make tests available under an emergency access mechanism called an Emergency Use Authorization (EUA). The EUA for this test is supported by the [place] of Health and Human Service's (HHS's) declaration [...] used). Performed By: #### C VDTBH #### [facility] [address] [place] [address] Edward Fajardo GLYCOHEMOGLOBIN A1Con 2019 Glucose [Mass/Vol] 123 mg/dL Normal [facility] Comment on above: Performed By: #### A 1C #### [facility] [address], [place] [address] Edward Fajardo HbA1c (Bld) [Mass fraction] 5.9 % Normal <=6.0 [facility] Comment on above: Performed By: #### A 1C #### [facility] [address] [id number] [address] ABD/PELV W CONon 03-03-20 [...] HEATHER HOBBS Date: 2020-03-03 09:23 Normal [facility] CBC AUTO DIFFon 02-24-2020 BASO # 0.1 103/ul Normal 0.0-0.1 [facility] Comment on above: Performed By: #### C BC #### [facility] [address], [place] [address] Edward Tana Basophils/100 WBC (Bld) 0.7 % Normal 0.2-2.0 [facility] Comment on above: Performed By: #### C BC #### [facility] [address], [place] [address] Edward Tana EO # 0.1 103/ul Normal 0.0-0.7 [facility] Comment on above: Performed By: #### C BC #### [facility] [address] [id number] Edward Tana Eosinophils/100 WBC (Bld) 1.2 % Normal 0.9-7.0 [facility] Comment on above: Performed By: #### C BC #### [facility] [address] [id number] Edward Tana Erythrocyte distribution width (RBC) [Ratio] 13.1 % Normal 11.0-15.0 [facility] Comment on above: Performed By: #### C BC #### [facility] [address] [id number] Edward Tana Hematocrit (Bld) [Volume fraction] 56.4 % Critically high 42.0-54.0 [facility] Comment on above: Performed By: #### C BC #### [facility] [address] [id number] Edward Tana Hemoglobin (Bld) [Mass/Vol] 19.2 g/dL Critically high 14.0-18.0 [facility] Comment on above: Performed By: #### C BC #### [facility] [address] [id number] Edward Tana IG # 0.06 10e3/ul Critically high 0.00-0.03 [facility] Comment on above: Performed By: #### C BC #### [facility] [address] [place], [place] [address] Edward Tana IG % 0.6 % Critically high 0.0-0.5 [facility] Comment on above: Performed By: #### C BC #### [facility] [address] [place], [place] [address] Edward Tana LYMPH # 2.3 103/ul Normal 1.2-3.8 [facility] Comment on above: Performed By: #### C BC #### [facility] [address] [place], [place] [address] Edwardfrankie Fajardo Lymphocytes/100 WBC (Bld) 23.2 % Normal 20.5-60.0 [facility] Comment on above: Performed By: #### C BC #### [facility] [address] [place], [place] [address] Edward Fajardo MANUAL DIFF REQ NO Normal [facility] Comment on above: Performed By: #### C BC #### [facility] [address] [place], [place] [address] Edwardfrankie Wilkinsen MCH (RBC) [Entitic mass] 32.9 pg Normal 25.9-34.0 [facility] Comment on above: Performed By: #### C BC #### [facility] [address] [place], [place] [address] Edwardfrankie Fajardo MCHC (RBC) [Mass/Vol] 34.0 g/dL Normal 29.9-35.2 [facility] Comment on above: Performed By: #### C BC #### [facility] [address] [place], [place] [address] Edwardfrankie Fajardo MCV (RBC) [Entitic vol] 96.7 fL Critically high 80.0-94.0 [facility] Comment on above: Performed By: #### C BC #### [facility] [address] [place], [place] [address] Edward Tana MONO # 0.9 103/ul Critically high 0.3-0.8 [facility] Comment on above: Performed By: #### C BC #### [facility] [address] [place], [place] [address] Edward Tana Monocytes/100 WBC (Bld) 8.9 % Normal 1.7-12.0 [facility] Comment on above: Performed By: #### C BC #### [facility] [address] [place], [place] [address] Edward Fajardo NEUT # 6.6 103/ul Critically high 1.4-6.5 [facility] Comment on above: Performed By: #### C BC #### [facility] [address] [place], [place] [address] Edward Fajardo Neutrophils/100 WBC (Bld) 65.4 % Normal 43.0-75.0 [facility] Comment on above: Performed By: #### C BC #### [facility] [address] [place], [place] [address] Edward Fajardo Platelet mean volume (Bld) [Entitic vol] 9.5 fL Normal 9.5-13.5 [facility] Comment on above: Performed By: #### C BC #### [facility] [address] [place], [place] [address] Edward Wilkinsen PLT 276 103/ul Normal 150-450 [facility] Comment on above: Performed By: #### C BC #### [facility] [address] [place], [place] [address] Edward Wilkinsen RBC 5.83 106/ul Normal 4.70-6.10 [facility] Comment on above: Performed By: #### C BC #### [facility] [address] [place], [place] [address] Edward Wilkinsen WBC 10.0 103/ul Normal 4.0-11.0 [facility] Comment on above: Performed By: #### C BC #### [facility] [address] [place], [place] [address] Edward Fajardo PROF 14(COMP METB)on 020 Albumin [Mass/Vol] 3.3 g/dL Critically low 3.5-5.0 [facility] Comment on above: Performed By: #### C MP #### [facility] [address] [place], [place] [address] Edward Wilkinsen Albumin/Globulin [Mass ratio] 0.8 {ratio} Normal [facility] Comment on above: Performed By: #### C MP #### [facility] [address] [id number] Edward Tana ALP [Catalytic activity/Vol] 100 U/L Normal 38-126 [facility] Comment on above: Performed By: #### C MP #### [facility] [address] [id number] Edward Tana ALT [Catalytic activity/Vol] 34 U/L Normal 21-72 [facility] Comment on above: Performed By: #### C MP #### [facility] [address] [address] Edward Tana Anion gap [Moles/Vol] 13.8 mmol/L Normal [facility] Comment on above: Performed By: #### C MP #### [facility] [address] [place] [address] Edward Tana AST [Catalytic activity/Vol] 23 U/L Normal 17-59 [facility] Comment on above: Performed By: #### C MP #### [facility] [address] [place] [address] Edward Tana Bilirubin [Mass/Vol] 0.2 mg/dL Normal 0.2-1.3 [facility] Comment on above: Performed By: #### C MP #### [facility] [address] [place], [place] [address] Edward Tana Calcium [Mass/Vol] 9.7 mg/dL Normal 8.4-10.2 [facility] Comment on above: Performed By: #### C MP #### [facility] [address] [place], [place] [address] Edward Tana Chloride [Moles/Vol] 105 mmol/L Normal 98-107 [facility] Comment on above: Performed By: #### C MP #### [facility] [address] [place], [place] [address] Edward Tana CO2 [Moles/Vol] 25.3 mmol/L Normal 22.0-30.0 [facility] Comment on above: Performed By: #### C MP #### [facility] [address] [id number] Edward Tana Creatinine [Mass/Vol] 0.91 mg/dL Normal 0.66-1.25 [facility] Comment on above: Performed By: #### C MP #### [facility] [address] [address] Edward Tana EGFR-AF SWEDISH >60 Normal >=60 [facility] Comment on above: Performed By: #### C MP #### [facility] [address] [address] Edward Tana EGFR-NON AF SWEDISH >60 Normal >=60 [facility] Comment on above: Performed By: #### C MP #### [facility] [address] [id number] Edward Tana Globulin (S) [Mass/Vol] 4.2 g/dL Normal [facility] Comment on above: Performed By: #### C MP #### [facility] [address] [address] Edward Tana Glucose [Mass/Vol] 127 mg/dL Critically high 74-[address] [facility] Comment on above: Performed By: #### C MP #### [facility] [address] [place] [address] Edward Tana Potassium [Moles/Vol] 4.1 mmol/L Normal 3.4-5.0 [facility] Comment on above: Performed By: #### C MP #### [facility] [address] [place] [address] Edward Tana Protein [Mass/Vol] 7.5 g/dL Normal 6.1-8.2 [facility] Comment on above: Performed By: #### C MP #### [facility] [address] [place] [address] Edward Tana Sodium [Moles/Vol] 140 mmol/L Normal 137-145 [facility] Comment on above: Performed By: #### C MP #### [facility] [address] [id number] Edward Tana Urea nitrogen [Mass/Vol] 12.0 mg/dL Normal 9.0-20.0 [facility] Comment on above: Performed By: #### C MP #### [facility] [address] [place], [place] [id number] Edward Tana Urea nitrogen/Creatinine [Mass ratio] 13.2 mg/mg Normal [facility] Comment on above: Performed By: #### C MP #### [facility] [address] [place], [place] [id number] Edward Tana CBC AUTO DIFFon 02-01-2020 BASO # 0.1 103/ul Normal 0.0-0.1 [facility] Comment on above: Performed By: #### C BC #### [facility] [address] [place], [place] [id number] Edward Tana Basophils/100 WBC (Bld) 0.4 % Normal 0.2-2.0 [facility] Comment on above: Performed By: #### C BC #### [facility] [address] [place] [address] Edward Tana EO # 0.1 103/ul Normal 0.0-0.7 [facility] Comment on above: Performed By: #### C BC #### [facility] [address] [place], [place] [id number] Edward Tana Eosinophils/100 WBC (Bld) 0.9 % Normal 0.9-7.0 [facility] Comment on above: Performed By: #### C BC #### [facility] [address] [place], [place] [id number] Edward Tana Erythrocyte distribution width (RBC) [Ratio] 13.3 % Normal 11.0-15.0 [facility] Comment on above: Performed By: #### C BC #### [facility] [address] [place], [place] [id number] Edward Tana Hematocrit (Bld) [Volume fraction] 55.7 % Critically high 42.0-54.0 [facility] Comment on above: Performed By: #### C BC #### [facility] [address] [place], [place] [id number] Edward Tana Hemoglobin (Bld) [Mass/Vol] 18.9 g/dL Critically high 14.0-18.0 [facility] Comment on above: Performed By: #### C BC #### [facility] [address] [id number] Edwardfrankie Fajardo IG # 0.05 10e3/ul Critically high 0.00-0.03 [facility] [place] Comment on above: Performed By: #### C BC #### [facility] [address] [id number] Edward Tana IG % 0.4 % Normal 0.0-0.5 [facility] Comment on above: Performed By: #### C BC #### [facility] [address] [id number] Edward Tana LYMPH # 1.5 103/ul Normal 1.2-3.8 [facility] Comment on above: Performed By: #### C BC #### [facility] [address] [place] [address] Edward Tana Lymphocytes/100 WBC (Bld) 10.8 % Critically low 20.5-60.0 [facility] Comment on above: Performed By: #### C BC #### [facility] [address] [place], [place] [id number] Edwardfrankie Fajardo MANUAL DIFF REQ NO Normal [facility] Comment on above: Performed By: #### C BC #### [facility] [address] [place], [place] [id number] Edward Tana MCH (RBC) [Entitic mass] 33.1 pg Normal 25.9-34.0 [facility] Comment on above: Performed By: #### C BC #### [facility] [address] [place], [place] [id number] Edward Tana MCHC (RBC) [Mass/Vol] 33.9 g/dL Normal 29.9-35.2 [facility] Comment on above: Performed By: #### C BC #### [facility] [address] [id number] Edward Tana MCV (RBC) [Entitic vol] 97.5 fL Critically high 80.0-94.0 [facility] Comment on above: Performed By: #### C BC #### [facility] [address], [place] [address] Edward Tana MONO # 1.1 103/ul Critically high 0.3-0.8 [facility] Comment on above: Performed By: #### C BC #### [facility] [address], [place] [address] Edward Tana Monocytes/100 WBC (Bld) 8.0 % Normal 1.7-12.0 [facility] Comment on above: Performed By: #### C BC #### [facility] [address] [id number] Edward Tana NEUT # 11.1 103/ul Critically high 1.4-6.5 [facility] Comment on above: Performed By: #### C BC #### [facility] [address] [place], [place] [id number] Edward Tana Neutrophils/100 WBC (Bld) 79.5 % Critically high 43.0-75.0 [facility] Comment on above: Performed By: #### C BC #### [facility] [address] [id number] Edward Tana Platelet mean volume (Bld) [Entitic vol] 10.1 fL Normal 9.5-13.5 [facility] Comment on above: Performed By: #### C BC #### [facility] [address] [place], [place] [address] Edward Tana PLT 280 103/ul Normal 150-450 [facility] Comment on above: Performed By: #### C BC #### [facility] [address] [place], [place] [address] Edward Tana RBC 5.71 106/ul Normal 4.70-6.10 [facility] Comment on above: Performed By: #### C BC #### [facility] [address] [id number] Edward Tana WBC 13.9 103/ul Critically high 4.0-11.0 [facility] Comment on above: Performed By: #### C BC #### [facility] [address] [place], [place] [id number] Edwadr Tana PROF 14(COMP METB)on 020 Albumin [Mass/Vol] 3.0 g/dL Critically low 3.5-5.0 [facility] Comment on above: Performed By: #### C MP #### [facility] [address] [place], [place] [id number] Edward Tana Albumin/Globulin [Mass ratio] 0.7 {ratio} Normal [facility] Comment on above: Performed By: #### C MP #### [facility] [address] [place], [place] [id number] Edward Tana ALP [Catalytic activity/Vol] 86 U/L Normal 38-126 [facility] Comment on above: Performed By: #### C MP #### [facility] [address] [place] [address] Edward Tana ALT [Catalytic activity/Vol] 49 U/L Normal 21-72 [facility] Comment on above: Performed By: #### C MP #### [facility] [address] [place] [address] Edward Tana Anion gap [Moles/Vol] 11.2 mmol/L Normal [facility] Comment on above: Performed By: #### C MP #### [facility] [address] [place] [address] Edward Tana AST [Catalytic activity/Vol] 28 U/L Normal 17-59 [facility] Comment on above: Performed By: #### C MP #### [facility] [address] [place], [place] [address] Edward Tana Bilirubin [Mass/Vol] 0.6 mg/dL Normal 0.2-1.3 [facility] Comment on above: Performed By: #### C MP #### [facility] [address] [place], [place] [address] Edward Tana Calcium [Mass/Vol] 9.4 mg/dL Normal 8.4-10.2 [facility] Comment on above: Performed By: #### C MP #### [facility] [address] [place], [place] [address] Edward Tana Chloride [Moles/Vol] 102 mmol/L Normal 98-107 [facility] Comment on above: Performed By: #### C MP #### [facility] [address] [id number] Edward Tana CO2 [Moles/Vol] 28.1 mmol/L Normal 22.0-30.0 [facility] Comment on above: Performed By: #### C MP #### [facility] [address] [place], [place] [address] Edward Tana Creatinine [Mass/Vol] 0.70 mg/dL Normal 0.66-1.25 [facility] Comment on above: Performed By: #### C MP #### [facility] [address] [place], [place] [address] Edward Tana EGFR-AF SWEDISH >60 Normal >=60 [facility] Comment on above: Performed By: #### C MP #### [facility] [address] [place] [address] Edward Tana EGFR-NON AF SWEDISH >60 Normal >=60 [facility] Comment on above: Performed By: #### C MP #### [facility] [address] [place], [place] [address] Edward Tana Globulin (S) [Mass/Vol] 4.6 g/dL Normal [facility] Comment on above: Performed By: #### C MP #### [facility] [address] [place] [address] Edward Tana Glucose [Mass/Vol] 126 mg/dL Critically high 74-106 [facility] Comment on above: Performed By: #### C MP #### [facility] [address] [place], [place] [address] Edward Tana Potassium [Moles/Vol] 3.3 mmol/L Critically low 3.4-5.0 [facility] Comment on above: Performed By: #### C MP #### [facility] [address] [place], [place] [address] Edward Tana Protein [Mass/Vol] 7.6 g/dL Normal 6.1-8.2 [facility] Comment on above: Performed By: #### C MP #### [facility] [address], [place] [address] Edward Tana Sodium [Moles/Vol] 138 mmol/L Normal 137-145 [facility] Comment on above: Performed By: #### C MP #### [facility] [address], [place] [address] Edward Tana Urea nitrogen [Mass/Vol] 9.0 mg/dL Normal 9.0-20.0 [facility] Comment on above: Performed By: #### C MP #### [facility] [address], [place] [address] Edward Tana Urea nitrogen/Creatinine [Mass ratio] 12.9 mg/mg Normal [facility] Comment on above: Performed By: #### C MP #### [facility] [address], [place] [address] Edward Tana Vital Signs Date Time Vital Sign Value Performing Clinician Facility 2023 13:19-0500 Blood Pressure Location [employer] [facility] 2023 13:19-0500 Diastolic blood pressure 84 mm[Hg] [facility] 2023 13:19-0500 Heart rate 76 /min [facility] [employer] [facility] 2023 13:19-0500 Respiratory rate 16 /min Benjamin [facility]enc[facility] 2023 13:19-0500 Systolic blood pressure 132 mm[Hg] [facility] 12-03-2022 11:30-0400 Body height 177.8 cm Verna Ordoñez Other [facility] Other 12-03-2022 11:30-0400 Body mass index (BMI) [Ratio] 35.55 kg/m2 Verna Ordoñez Other [facility] Other 12-03-2022 11:30-0400 Body temperature 97.3 [degF] Evrna Smita Other [facility] Other 12-03-2022 11:30-0400 Body weight 112.4 kg Verna Smita Other [facility] Other 12-03-2022 11:30-0400 Diastolic blood pressure 98 mm[Hg] Verna Ordoñez Other [facility] Other 12-03-2022 11:30-0400 Respiratory rate 18 /min Verna Ordoñez Other [facility] Other 12-03-2022 11:30-0400 SaO2% (BldA) [Mass fraction] 93 % Verna Ordoñez Other [facility] Other 12-03-2022 11:30-0400 Systolic blood pressure 148 mm[Hg] Verna Ordoñez Other [facility] Other Encounters Encounter Date Encounter Type Care Provider Facility Start: 06-30-2023 End: 06-30-2023 ambulatory NILDA CHEEMA Not Available Start: 06-03-2023 End: 06-04-2023 ambulatory Benjamin R JOSE Facility: [facility] Start: 06-03-2023 End: 06-03-2023 Patient encounter procedure Benjamin BONILLAL General Surgery Nill/Said [facility] Start: 05-21-2023 End: 05-22-2023 ambulatory Nilda Cheema Facility:[facility] Start: 2023 End: 05-07-2023 ambulatory Benjamin R NILL Facility: [facility] Start: 2023 End: 2023 Patient encounter procedure Benjamin R NILL General Surgery Nill/Said [facility] Start: 04-15-2023 ambulatory SHIRLEY ESTRADA Facility :[facility] Start: 03-31-2023 End: 03-31-2023 ambulatory NILDA AICHHOLZ Not Available Start: 02-17-2023 End: 02-17-2023 ambulatory NILDA AICHHOLZ Not Available Start: 12-03-2022 End: 12-03-2022 ambulatory Verna Ordoñez Other [employer] Other Start: 12-03-2022 Office outpatient ne w 30 minutes Verna Ordoñez [facility] Start: 01-09-2021 End: 01-09-[address] HEATHER HOBBS Facility:[facility] Start: 07-17-2020 End: 07-18-2020 ambulatory [employer] NILDA AICHHOLZ Facility:[facility] Start: 04-13-2020 Encounter for preprocedural laboratory examination DR BENJAMIN THURMAN 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 NILDA AICHHOLZ Facility:[facility] Start: 02-24-2020 End: 02-25-2020 ambulatory [employer] T[employer]ER NILDA AICHHOLZ Facility:[facility] Start: 02-01-2020 End: 02-02-2020 ambulatory SPINNER TENDER NIDLA AICHHOLZ Facility:[facility] Procedures Date Procedure Procedure Detail Performing Clinician Start: 05-21-2023 Colonoscopy Benjamin ARCHIBALD Start: 04-12-2020 Colonoscopy Benjamin ARCHIBALD Repair of umbilical hernia M cole THURMAN Plan of Treatment Date Care Activity Detail Author Start: 07-29-2023 ambulatory Ambulatory Facility:[facility] Immunizations Immunization Date Immunization Notes Care Provider Rashel eastman NEGATED: Highlighted row has not occurred!2023 influenza virus vaccine, unspecified formulation Benjamin JOSE [facility] Payers Date Payer Category Payer Self-pay 2023 Private Health Insurance [id number] 1960 Unknown [id number] 2.16.84 [id number] 1960 Unknown [id number] 2.16.84 [id number] 1961 Unknown [id number] 2.16.84 0.1.097845.3.579.2.593 1961 Unknown [id number] 2.16.84 0.1.700752.3.579.2.593 1961 Unknown [id number] 2.16.84 0.1.255380.3.579.2.593 1961 Unknown [id number] 2.16.84 0.1.148461.3.579.2.593 1961 Unknown [id number] 2.16.84 0.1.176266.3.579.2.593 1961 Unknown [id number] 2.16.84 0.1.591159.3.579.2.593 1961 Unknown [id number] 2.16.8 40.1.452420.3.579.2.727 1961 Unknown [id number] 2.16.8 40.1.372200.3.579.2.727 1961 Unknown [id number] 2.16.8 40.1.586462.3.579.2.727 1961 Unknown [id number] 2.16.8 40.1.514922.3.579.2.727 1961 Unknown [id number] 2.16.84 0.1.555012.3.579.2.1259 1961 Unknown [id number] 2.16.84 0.1.366500.3.579.2.1259 1961 Unknown [id number] 2.16.840 .1.831769.3.579.2.1259 1959 Private Health Insurance [id number] 1958 Unknown [id number] Social History Date Type Detail Facility Unknown if ever smoked [facility] Other Sex Assigned At [facility] Start: 2023 Tobacco smoking status Heavy t obacco smoker (finding) [facility] Tobacco smoking status Never Gener al Surgery [facility] Functional Status Date Assessment Result Facility 2023 Functional Status N/A [facility] 2023 Note Date & [...] E&M of Est. Patient Low 20-29 Min [id number] Follow-up No qualifying data available Problem List/Past [...] Immunizations Vaccine Date (more content not included)... [facility] Comment on above: Result Comment: Elec tronically Signed By: JOSE STRONG, Benjamin Hill.ravindra\Date and Time Signed: 05/06/23 13:49 EST Evaluation note 12-03-2022 Note Date & Type Note Facility 12-03-2022 Evaluation note Encounter Date Diagnosis Assessment Notes Nov, COPD exacerbation (ICD-10 - J44.1) Patient declines COVID testing. Discussed with patient exam is consistent with COPD exacerbation. Discussed likely started as viral URI. Covering with azithromycin given comorbidity of COPD. Finish entire course. May use Mucinex DM [id number] . Prednisone burst and as needed albuterol inhaler sent. Follow-up with PCP for recheck in the next 5 to 7 days, sooner if significantly worsening. Discussed with chronic condition of COPD is important he follows up regularly with PCP. Encouraged to quit smoking. Patient verbalized understanding of treatment plan. [facility] Other Clinical Note 04-12-2020 Note Date & [...] sent to Recovery Room in good condition. [facility] Signed and Approved by: DR BENJAMIN THURMAN . 04/13/2020 09:02:00 [facility] Evaluation + Plan note Note Date & Type Note Facility Evaluation + Plan note Future Appointments Appointment Date:07/29/2023 01:20:00 PM Scheduled Provider:SHIRLEY ESTRADA PA-C Location:[facility] Appointment Type:URO New Patient General [facility] [place] [facility] course Narrative Note Date & Type Note Facility Hospital course Narrative No data available for this section General [facility] [place] [facility] Discharge instructions Note Date & Type Note Facility Hospital Discharge instructions No data available for this section General [facility] [place] Progress note Note Date & Type Note Facility Progress note No data available for this section [facility] [place] Summary Purpose Family History No Family History Records Found No data available for this section No Family History Records Found No data available for this section No Family History Records FoundNo Family History Records Found Advance Directives No Advanced Directives Records FoundNo Advanced Directives Records FoundNo Advanced Directives Records FoundNo Advanced Directives Records Found Additional Source Comments (unrecognized sect ion and content) No Status Records FoundNo Status Records FoundNo Status Records FoundNo Status Records Found INFORMATION SOURCE (unrecogn ized section and content) DATE CREATED AUTHOR 01/12/2021 [facility] DATE CREATED AUTHOR AUTHOR'S ORGANIZ ATION 05/27/2023 [facility] DATE CREATED AUTHOR AUTHOR'S ORGANIZ ATION 06/04/2023 [facility] DATE CREATED AUTHOR AUTHOR'S ORGANIZ ATION 07/01/2023 [facility] REASON FOR VISIT (unrecogniz ed section and content) COUGH, CONGESTION, OUT OF BR EATH Patient Care team informatio n (unrecognized section and content) Personnel Name: NILDA CHEEMA CNP [place] Address: Address: [address] [place] [address] Personnel Name: BRENDA REINALDONILDA [place] Address: Address: [address] [place] [address] FOR RECORDS PERTAINING TO PATIENTS WHO ARE [...] BE BASED ON THE PRIMARY CLINICAL RECORDS. [facility] [employer] [facility]. provides no warranty or guarantee of the accuracy or completeness of information in this document.
[2023-07-24 07:12] LABS: Estimated Average Glucose 140 mg/dL; Glycohemoglobin A1C 6.5 % (4.5-6.2)
== END 2023-07-24 06:41 | disposition home or self-care (01) ==
LOC: LAB 06:42
PROVIDERS: PCP Nurse Practitioner; Visit Provider Nurse Practitioner
DX: E11.9 Type 2 diabetes mellitus without complications (principal)
CPT/HCPCS: 36415; 83036

== ENCOUNTER 2023-10-30 07:02 | Outpatient (OUT) | payer OTHER, SELFPAY ==
--- OUTSIDE RECORDS SUMMARY | 2023-10-30 07:05 | XMS_ITS | CCD ---
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 Name Role Phone AICHHOLZ, PLASTICS SCIENTIST NILDA Admitting Unavailable AICHHOLZ, PLASTICS SCIENTIST NILDA Attending Unavailable AICHHOLZ, PLASTICS SCIENTIST NILDA Consulting Unavailable AICHHOLZ, PLASTICS SCIENTIST NILDA Primary Care Unavailable AICHHOLZ, PLASTICS SCIENTIST NILDA Primary Care Unavailable AICHHOLZ, PLASTICS SCIENTIST NILDA Consulting Unavailable AICHHOLZ, PLASTICS SCIENTIST NILDA Admitting Unavailable AICHHOLZ, PLASTICS SCIENTIST NILDA Attending Unavailable AICHHOLZ, PLASTICS SCIENTIST NILDA Admitting Unavailable AICHHOLZ, PLASTICS SCIENTIST NILDA Attending Unavailable AICHHOLZ, PLASTICS SCIENTIST NILDA Consulting Unavailable AICHHOLZ, PLASTICS SCIENTIST NILDA Primary Care Unavailable ZIEBER, DR HEATHER Wagner Consulting Unavailable AICHHOLZ, PLASTICS SCIENTIST NILDA Admitting Unavailable AICHHOLZ, PLASTICS SCIENTIST NILDA Attending Unavailable AICHHOLZ, PLASTICS SCIENTIST NILDA Primary Care Unavailable AICHHOLZ, PLASTICS SCIENTIST NILDA Consulting Unavailable AICHHOLZ, PLASTICS SCIENTIST NILDA Primary Care Unavailable NILL, DR ALEXANDER Consulting Unavailable NILL, DR ALEXANDER Admitting Unavailable NILL, DR ALEXANDER Attending Unavailable ZIEBER, DR HEATHER Wagner Consulting Unavailable REQUEST, DR LLANES LISTED Primary Care Unavaila ble NAIF LOMAX Admitting Unavailable NAIF LOMAX Attending Unavailable NAIF LOMAX Consulting Unavailable AICHHOLZ, PLASTICS SCIENTIST NILDA Primary Care Unavailable NILL, DR ALEXANDER Consulting Unavailable NILL, DR ALEXANDER Admitting Unavailable NILL, DR ALEXANDER Attending Unavailable MILKA STEPHENS Consulting Unavailable AICHHOLZ, PLASTICS SCIENTIST NILDA Primary Care Unavailable SHAIKH GALE Consulting Unavailable KELL GALEIKH Admitting Unavailable SHAIKH GALE Attending Unavailable Verna Ordoñez Unavailable NILDA CHEEMA Primary Care Physician SHIRLEY ESTRADA Attending Unavailable NILDA CHEEMA Referring Unavailable Benjamin THURMAN Attending Unavailable Benjamin THURMAN Attending Unavailable Benjamin THURMAN Attending Unavailable NILDA CHEEMA Referring Unavailable Nilda Cheema Primary Care Provider FRANK Poon Emergency Provider [phone] NILDA CHEEMA Attending Unavailable NILDA CHEEMA Attending Unavailable NILDA CHEEMA Attending Unavailable NILDA CHEEMA Attending Unavailable NILDA CHEEMA Attending Unavailable Nilda Cheema Primary Care Unavailable Lory Poon Admitting Unavailable Lory Poon Attending Unavailable Nilda Cheema Primary Care Unavailable Benjamin Thurman Admitting Unavailable Cuca, Benjamin Wagner Attending Unavailable Allergies Allergy Classification Reported Allergen(s) Allergy Type Date of Onset Reaction(s) Facility (1 source) No Known Medication Allergies; Translations: [No Known Medication Allergies] Propensity to adverse reactions (disorder) [facility] Repository Medications Current Medications Medication Drug Class(es) Dates Sig (Normalized) Sig (Original) acetaminophen 325 mg / HYDROcodone bitartrate 5 mg oral tablet (1 source) Opioid Agonist Start: 10-09-2023 take 1 tablet by mouth three times daily Hydrocodone-Aceta minophen Active 1 TAB PO Three times daily 9 October 09, 2023 Albuterol (4 sources) beta2-Adrenergic Agonist Start: 04-16-2023 take 2 [...] SOB, wheezing for 15 days Nov, Active amoxicillin 875 mg / clavulanate 125 mg oral tablet (1 source) Penicillin-class Antibacterial Start: 10-09-2023 take 1 tablet by mouth twice daily Amoxicillin-Pot Clavulanate Active 1 TAB PO Twice daily 20 Janneth 25th, 2024 12:00am aspirin 81 mg chewable tablet (4 sources) Platelet Aggregation Inhibitor, Nonsteroidal Anti-inflammatory Drug Start: 10-09-2023 take 1 tablet by mouth once daily Aspirin Active 1 TAB PO Daily October 09, 2023 12:00am Start: 2023 aspirin 81 mg Chew Tab 81 mg = 1 tab(s), Chewed, Daily, Refills(s) 0 Start Date: 05/06/23 Status: Ordered atorvastatin 10 mg oral tablet (1 source) HMG-CoA Reductase Inhibitor Start: 10-09-2023 take 10 mg by mouth once daily Atorvastatin Active 10 MG PO Daily October 09, 2023 12:00am azithromycin 250 mg oral tablet (1 source) Macrolide Antimicrobial Start: 12-03-2022 Azithromycin 250 MG 2 tablet on first day, 1 tablet daily for 4 days Orally daily for 5 days Nov, Active lisinopril 20 mg oral tablet (3 sources) Angiotensin Converting Enzyme Inhibitor Start: 04-16-2023 take 1 tablet by mouth once daily lisinopril 20 mg Tab 20 mg = 1 tab(s), Oral, Daily, Refills(s) 0 Start Date: 04/16/23 Status: Ordered metFORMIN hydrochloride 500 mg oral tablet (4 sources) Biguanide Start: 10-09-2023 take 1000 mg by mouth twice daily Metformin Active 1000 MG PO Twice daily October 09, 2023 12:00am Start: 04-16-2023 take 1 tablet by birdie th twice daily metformin 1000 mg Tab 1,000 mg = 1 tab(s), Oral, BID, Refills(s) 0 Start Date: 04/16/23 Status: Ordered ondansetron 4 mg disintegrating oral tablet (1 source) Serotonin-3 Receptor Antagonist Start: 10-09-2023 take 4 mg by mouth three times daily Ondansetron Active 4 MG PO Three times daily 9 3 October 09, 2023 12:00am predniSONE 20 mg oral tablet (1 source) Start: 12-03-2022 predniSONE 20 MG take 2 tabs po daily x 5 days Orally Once a day for 5 days Nov, Active Trelegy Ellipta 100 mcg-62.5 mcg-25 mcg inhalation powder (3 sources) Start: 04-16-2023 take 1 puff(s) by inhalation once daily Trelegy Ellipta 100 mcg-62.5 mcg-25 mcg inhalation powder = 1 puff(s), Inhalation, Daily, Refills(s) 0 Start Date: 04/16/23 Status: Ordered Problems Active Problems Problem Classification Problem Date Documented Da te Episodic/Chronic Abdominal pain (4 sources) Left lower quadrant pain; Translations: [Lower abdominal pain, unspecified] Onset: 10-09-2023 04-16-2023 Episodic Chronic obstructive pulmonary disease and bronchiectasis (6 sources) Chronic obstructive pulmonary disease, unspecified; Translations: [Acute exacerbation of chronic obstructive airways disease] Onset: 04-18-2020 Chronic Diabetes mellitus without complication (3 sources) Type 2 diabetes mellitus 04-16-2023 Chronic Diabetes mellitus without complication (7 sources) Hyperglycemia, unspecified; Translations: [Hyperglycemia] Onset: 07-17-2020 Episodic Diverticulosis and diverticulitis (10 sources) Diverticulosis of large intestine without perforation or abscess without bleeding; Translations: [Diverticulitis of intestine, part unspecified, without perforation or abscess without bleeding] Onset: 03-03-2020 Chronic Essential hypertension (3 sources) Hypertensive disorder 04-16-2023 Chronic Gastrointestinal hemorrhage (8 sources) Hemorrhage of anus and rectum; Translations: [Gastrointestinal hemorrhage] Onset: 03-06-2020 Episodic Other and unspecified benign neoplasm (4 sources) History of polyp of colon; Translations: [Personal history of colonic polyps] Onset: 2023 Episodic Other and unspecified benign neoplasm (3 sources) Adenomatous polyp of colon 04-19-2020 Episodic Other and unspecified benign neoplasm (3 sources) Tubular adenoma of colon 04-19-2020 Episodic Other and unspecified benign neoplasm (1 source) Benign neoplasm of colon; Translations: [Benign neoplasm of colon, unspecified] Onset: 06-03-2023 Episodic Other gastrointestinal disorders (3 sources) Alteration in bowel elimination 04-16-2023 Episodic Other gastrointestinal disorders (3 sources) Diarrhea 03-28-2020 Episodic Other gastrointestinal disorders (3 sources) History of diverticulitis 03-24-2020 Episodic Other hematologic conditions (3 sources) Secondary polycythemia 04-16-2023 Episodic Other lower respiratory disease (3 sources) Solitary nodule of lung 04-16-2023 Episodic Other nutritional; endocrine; and metabolic disorders (3 sources) Body mass index 30+ - obesity 2023 Chronic Other nutritional; endocrine; and metabolic disorders (3 sources) Morbid obesity 2023 Chronic Residual codes; unclassified (3 sources) Tobacco user 03-22-2020 Episodic Spondylosis; intervertebral disc disorders; other back problems (3 sources) Degeneration of lumbar intervertebral disc 04-16-2023 Chronic Substance-related disorders (1 source) Nicotine dependence, cigarettes, uncomplicated; Translations: [NICOTINE DEPEND CIGARETTES UNCOMP] Onset: 01-11-2021 Chronic Unclassified (3 sources) LOW BACK PAIN, UNSPECIFIED; Translations: [LOW BACK PAIN, UNSPECIFIED] Onset: 01-11-2021 Unclassified (1 source) CONTACT W/AND (SUSP) EXPOS COVID-19; Translations: [CONTACT W/AND (SUSP) EXPOS COVID-19] Onset: 04-13-2020 Urinary tract infections (1 source) Urinary tract infectious disease; Translations: [Urinary tract infection, site not specified] 10-09-2023 Episodic Past or Other Problems Problem Classification Problem [...] Test Name Value Interpretation Reference Range Facility Activated partial thrombopla stin time (aPTT) in platelet poor plasma by coagulation aOrdered By: Max Contreras on 10-09-2023 aPTT Coag (PPP) [Time] 30.9 s 25.1-36.5 [facility] Comment on above: A hematocrit value g reater than 55% may lead to inaccurate results in coagulation testing. Patients having hematocrit values >55% require a special collection tube for coagulation studies. Please contact the laboratory at [phone] for redraw instructions. Alanine aminotransferase [En zymatic activity/volume] in Serum or PlasmaOrdered By: Lory Poon on 10-09-2023 ALT [Catalytic activity/Vol] 30 U/L Normal 7-52 [facility] Comment on above: Performed By: #### C MP, CBC #### [facility] [address] [place] [address] [place] Albumin [Mass/volume] in Ser um or Plasma by Bromocresol green (BCG) dye binding methoOrdered By: Lory Poon on 10-09-2023 Albumin BCG dye [Mass/Vol] 4.3 g/dL 3.5-5.7 [facility] Alkaline phosphatase [Enzyma tic activity/volume] in Serum or PlasmaOrdered By: Lory Poon on 10-09-2023 ALP [Catalytic activity/Vol] 72 U/L Normal 34-104 [facility] Comment on above: Performed By: #### C MP, CBC #### [facility] [address] [place] [address] [place] Aspartate aminotransferase [ Enzymatic activity/volume] in Serum or PlasmaOrdered By: Lory Poon on 10-09-2023 AST [Catalytic activity/Vol] 24 U/L Normal 13-39 [facility] Comment on above: Performed By: #### C MP, CBC #### [place] [address] [place] Automated basophil %Ordered By: Lory Poon on 10-09-2023 Basophils/100 WBC (Bld) 0.3 % Normal . [facility] Comment on above: Performed By: #### C MP, CBC #### [address] Automated basophil countOrde red By: Lory Poon on 10-09-2023 Basophils (Bld) [#/Vol] 0.0 10*3/uL Normal 0.0-0.2 [facility] Comment on above: Result Comment: PERF ORMED BY: [place] [address] PATHOLOGIST [facility] CORONA M.D. Performed By: #### C MP, CBC #### [address] Automated blood monocyte cou ntOrdered By: Lory Poon on 10-09-2023 Monocytes (Bld) [#/Vol] 0.7 10*3/uL Normal 0.0-0.8 [facility] Comment on above: Performed By: #### C MP, CBC #### [address] Automated eosinophil %Ordere d By: Lory Poon on 10-09-2023 Eosinophils/100 WBC (Bld) 0.5 % Normal . [facility] Comment on above: Performed By: #### C MP, CBC #### [address] Automated eosinophil countOr dered By: Lory Poon on 10-09-2023 Eosinophils (Bld) [#/Vol] 0.1 10*3/uL Normal 0.0-0.45 [facility] Comment on above: Performed By: #### C MP, CBC #### [address] Automated monocyte %Ordered By: Lory Poon on 10-09-2023 Monocytes/100 WBC (Bld) 6.2 % Normal . [facility] Comment on above: Performed By: #### C MP, CBC #### [address] Automated neutrophil %Ordere d By: Lory Brucekarlos on 10-09-2023 Neutrophils/100 WBC (Bld) 86.4 % Normal . [facility] Comment on above: Performed By: #### C MP, CBC #### [facility] [address] [place], [place] [id number] [facility] Bacteria [Presence] in Urine by AutomatedOrdered By: PROVIDER TEMP on 10-09-2023 Bacteria Auto Ql (U) Rare [HPF] None Seen [facility] Bilirubin Test strip Ql (U)O rdered By: PROVIDER TEMP on 10-09-2023 Bilirubin Ql (U) Negative Negative [facility] Bilirubin.total [Mass/volume ] in Serum or PlasmaOrdered By: Lory Poon on 10-09-2023 Bilirubin [Mass/Vol] 0.5 mg/dL Normal 0.3-1.0 [facility] Comment on above: Performed By: #### C MP, CBC #### [facility] [address] [place] [address] CT abdomen pelvis wo conon 0 10-09-2023 CT abdomen pelvis wo con [facility] [employer] [address] [place] [address] CT Scan Report Signed Patient: Avel Akhtar MR#: [id number] : 1960 Acct:[id number] Age/Sex: 63 / M ADM Date: 10/09/23 Loc: ER Room: Type: PRE ER Attending Dr: Copies to: Lory Poon APRN TEMSincere, PROVIDER Ordering Provider: Lory Poon APRN Date of Service: 10/09/23 CT/CT abdomen pelvis wo con: pain CT Abdomen and Pelvis withoutcontrast TECHNIQUE: Axial imaging with 2-D reconstruction. . The CT exam was performed using one or more the following dose reduction techniques: Automated exposure control, adjustment of the MA and/or Kv according to patient size, or use of the iterative reconstruction technique. COMPARISON: None History: Lower pelvic pain in the LEFT. Hematuria. Vomiting. LIMITATIONS: None LOWER THORAX Unremarkable LIVER: Hepatic steatosis. Mild hepatomegaly GALLBLADDER: No gallbladder abnormality identified. BILE DUCTS: No dilatation SPLEEN: Unremarkable PANCREAS: Unremarkable ADRENAL GLANDS: Unremarkable KIDNEYS:Bilateral renal cysts AORTA: No abdominal aortic aneurysm identified. RETROPERITONEUM: No significant retroperitoneal abnormalities identified. MESENTERY:Unremarkable SMALL BOWEL: The small bowel loops are nondistended. APPENDIX: The appendix is normal. COLON: Peridiverticular inflammation at the descending colon sigmoid junction region and proximal sigmoid colon. Circumferential edematous wall thickening in this region. No pneumoperitoneum. No worrisome drainable abscess. Inflammatory changes about the urinary bladder. No air in urinary bladder. URINARY BLADDER: Urinary bladder is unremarkable. REPRODUCTIVE SYSTEM: Reproductive structures are unremarkable. PNEUMOPERITONEUM: None PERITONEAL FLUID:None BONY STRUCTURES: Degenerative change ABDOMINAL WALL: Unremarkable CT/CT abdomen pelvis wo con IMPRESSION: Acute distal descending and proximal sigmoid colon diverticulitis. No drainable abscess. No pneumoperitoneum. Abutment of the urinary bladder without obvious fistulization. Hepatic steatosis with mild hepatomegaly. Bilateral renal cysts. Nondistended small bowel. Impression dictated by: Christ Garcia M.D.10/09/2023 3:51 PM Dictation Location: [place] [address] Transcribed By: [facility] 10/09/23 1551 Dictated By: Christ Garcia DO 10/09/23 1544 Signed By: 10/09/23 1551 Normal [facility] Calcium [Mass/volume] in Ser um or PlasmaOrdered By: Lory Poon on 10-09-2023 Calcium [Mass/Vol] 9.4 mg/dL Normal 8.6-10.3 [facility] Comment on above: Performed By: #### C MP, CBC #### [facility] [address] Carbon dioxide, total [Moles /volume] in Serum or PlasmaOrdered By: Lory Poon on 10-09-2023 CO2 [Moles/Vol] 23.0 mmol/L Normal 21.0-31.0 [facility] Comment on above: Performed By: #### C MP, CBC #### [facility] [address] [place] [address] [place] Chloride [Moles/volume] in S jesu or PlasmaOrdered By: Lory Poon on 10-09-2023 Chloride [Moles/Vol] 98 mmol/L Normal 98-107 [facility] Comment on above: Performed By: #### C MP, CBC #### [address] Coagulation Profileon 2023 aPTT Coag (Bld) [Time] 30.9 s Normal 25.1-36.5 [facility] Comment on above: Result Comment: A he matocrit value greater than 55% may lead to inaccurate results in coagulation testing. Patients having hematocrit values >55% require a special collection tube for coagulation studies. Please contact the laboratory at [phone] for redraw instructions. PERFORMED BY: [place] [address] PATHOLOGIST [facility] CORONA M.D. Performed By: #### P P #### [address] Color of Urine by AutoOrdere d By: PROVIDER TEMP on 10-09-2023 Color (U) Yellow Normal Yellow [facility] Comment on above: Order Comment: Name Collection Type:: Clean-Voided Midstream Performed By: #### C UU, ADDONUAPLUS #### [address] Complete Blood Count Auto Di ffon 10-09-2023 Mean Corpuscular HGB Conc 34.0 g/dL Normal 32.5-35.6 [facility] Comment on above: Performed By: #### C MP, CBC #### [place] [address] [place] Monocytes/100 WBC (Bld) 26.96 % High 0.00-20.00 [facility] Comment on above: Result Comment: For adults in ED, MDW > 20.0 may be associated with a higher risk of sepsis during the first 12 hrs of hospital admission Performed By: #### C MP, CBC #### [address] NRBC% 0.1 /100{WBC} Normal 0-0.5 [facility] Comment on above: Performed By: #### C MP, CBC #### [address] [address] [place] Comprehensive Metabolic Pane denton 10-09-2023 Albumin [Mass/Vol] 4.3 g/dL Normal 3.5-5.7 [facility] Comment on above: Performed By: #### C MP, CBC #### [address] Creatinine Clr Calc Pharmacy 121.22 Normal [facility] Comment on above: Result Comment: PERF ORMED BY: [place] [address] PATHOLOGIST [facility] CORONA M.D. Performed By: #### C MP, CBC #### [place] [address] [place] GFR/1.73 sq M.predicted MDRD (S/P/Bld) [Vol rate/Area] mL/min/{1.73_m2} Normal [facility] Comment on above: Performed By: #### C MP, CBC #### [address] Creatinine [Mass/volume] in Serum or PlasmaOrdered By: Lory Poon on 10-09-2023 Creatinine [Mass/Vol] 0.77 mg/dL Normal 0.70-1.30 [facility] Comment on above: Performed By: #### C MP, CBC #### [address] Dipstick and Microscopicon 0 10-09-2023 Bacteria,Urine Rare Normal None Seen [facility] Comment on above: Order Comment: Name Collection Type:: Clean-Voided Midstream Performed By: #### C UU, ADDONUAPLUS #### [place] [address] [place] Bilirubin,Urine Negative Normal Negative [facility] Comment on above: Order Comment: Name Collection Type:: Clean-Voided Midstream Performed By: #### C UU, ADDONUAPLUS #### [place] [address] [place] Glucose Ql (U) Normal Normal Normal [facility] Comment on above: Order Comment: Name Collection Type:: Clean-Voided Midstream Performed By: #### C UU, ADDONUAPLUS #### [place] [address] [place] Hyaline Casts,Urine 0-8 Normal 0-8 [facility] Comment on above: Order Comment: Name Collection Type:: Clean-Voided Midstream Performed By: #### C UU, ADDONUAPLUS #### [place] [address] [place] Mucus,Urine Rare Normal [facility] Comment on above: Order Comment: Name Collection Type:: Clean-Voided Midstream Result Comment: PERF ORMED BY: [place] [address] PATHOLOGIST [facility] CORONA M.D. Performed By: #### C UU, ADDONUAPLUS #### [address] Nitrite,Urine Negative Normal Negative [facility] Comment on above: Order Comment: Name Collection Type:: Clean-Voided Midstream Performed By: #### C UU, ADDONUAPLUS #### [address] Occult Blood,Urine 3+ High Negative [facility] Comment on above: Order Comment: Name Collection Type:: Clean-Voided Midstream Result Comment: PERF ORMED BY: [place] [address] PATHOLOGIST [facility] CORONA M.D. Performed By: #### C UU, ADDONUAPLUS #### [place] [address] [place] RBC,Urine Innumerable High 0-4 [facility] Comment on above: Order Comment: Name Collection Type:: Clean-Voided Midstream Performed By: #### C UU, ADDONUAPLUS #### [address] Specificy [place],Urine 1.021 Normal 1.001-1.030 [facility] Comment on above: Order Comment: Name Collection Type:: Clean-Voided Midstream Performed By: #### C UU, ADDONUAPLUS #### [facility] [address] [place] [address] Squamous Epithelial Cell,Urine 1-2 Normal 0-2 [facility] Comment on above: Order Comment: Name Collection Type:: Clean-Voided Midstream Performed By: #### C UU, ADDONUAPLUS #### [facility] [address] [place] [address] Urobilinogen,Urine 4 mg/dL High Normal [facility] Comment on above: Order Comment: Name Collection Type:: Clean-Voided Midstream Performed By: #### C UU, ADDONUAPLUS #### [address] WBC,Urine 20-49 High 0-4 [facility] Comment on above: Order Comment: Name Collection Type:: Clean-Voided Midstream Performed By: #### C UU, ADDONUAPLUS #### [address] Epithelial cells.squamous [# /area] in Urine sediment by Automated countOrdered By: PROVIDER TEMP on 10-09-2023 Epithelial cells.squamous Auto (Urine sed) [#/Area] 1-2 [HPF] 0-2 [facility] Erythrocyte distribution wid th [Ratio] by Automated countOrdered By: Lory Poon on 10-09-2023 Erythrocyte distribution width (RBC) [Ratio] 13.5 % Normal 12.0-14.8 [facility] Comment on above: Performed By: #### C MP, CBC #### [facility] [address] [place] [address] Erythrocytes [#/area] in Uri ne sediment by Automated countOrdered By: PROVIDER TEMP on 10-09-2023 RBC Auto (Urine sed) [#/Area] Innumerable [HPF] High 0-4 [facility] Erythrocytes [#/volume] in B lood by Automated countOrdered By: Lory Poon on 10-09-2023 RBC (Bld) [#/Vol] 5.49 10*6/uL Normal 3.90-5.[address] [facility] Comment on above: Performed By: #### C MP, CBC #### [facility] [address] Glucose [Mass/volume] in Ser um or PlasmaOrdered By: Lory Poon on 10-09-2023 Glucose [Mass/Vol] 119 mg/dL High 70-100 [facility] Comment on above: ADA recommended refe rence rangeRandom Glucose Reference Range is dependent on time and content of last meal. Glucose of more than 200 mg/dL in a nonstressed, ambulatory subject supports the diagnosis of Diabetes Mellitus. Result Comment: [place] om Glucose Reference Range is dependent on time and content of last meal. Glucose of more than 200 mg/dL in a nonstressed, ambulatory subject supports the diagnosis of Diabetes Mellitus. ADA recommended reference range Performed By: #### C CANDIDO, CBC #### [facility] [address] [place] [id number] [facility] Glucose [Mass/volume] in Uri ne by Test stripOrdered By: PROVIDER TEMP on 10-09-2023 Glucose Test strip (U) [Mass/Vol] Normal mg/dL Normal [facility] Hematocrit [Volume Fraction] of Blood by Automated countOrdered By: Lory Poon on 10-09-2023 Hematocrit (Bld) [Volume fraction] 52.2 % High 38.8-50.0 [facility] Comment on above: Performed By: #### C MP, CBC #### [facility] [address] [place] [id number] [facility] Hemoglobin Test strip Ql (U) Ordered By: PROVIDER TEMP on 10-09-2023 Hemoglobin Ql (U) 3+ High Negative [facility] Hemoglobin [Mass/volume] in BloodOrdered By: Lory Poon on 10-09-2023 Hemoglobin (Bld) [Mass/Vol] 17.7 g/dL High 13.0-17.0 [facility] Comment on above: Performed By: #### C MP, CBC #### [place] [place] [id number] [place] Hyaline casts [#/area] in Ur ine sediment by Automated countOrdered By: PROVIDER TEMP on 10-09-2023 Hyaline casts Auto (Urine sed) [#/Area] 0-8 [LPF] 0-8 [facility] INR in Platelet poor plasma by Coagulation assayOrdered By: Max Contreras on 10-09-2023 INR Coag (PPP) [Relative time] 1.1 {INR} Normal [facility] Comment on above: INR Therapeutic Rang e A) Pre- and Peroperative OAT started two weeks before surgery. NOT HIP SURGERY: 1.5 - 2.5 HIP SURGERY: 2 - 3B) Primary and secondary prevention of venous THROMBOSIS: 2 - 3C) Active venous thrombosis, pulmonary embolismand prevention of recurrent venous thrombosis: 2 - 3D) Prevention of arterial thromboembolismincluding patients with mechanical heart valves: 3 - 4.5 Result Comment: INR Therapeutic Range A) Pre- and Peroperative OAT started two weeks before surgery. NOT HIP SURGERY: 1.5 - 2.5 HIP SURGERY: 2 - 3 B) Primary and secondary prevention of venous THROMBOSIS: 2 - 3 C) Active venous thrombosis, pulmonary embolism and prevention of recurrent venous thrombosis: 2 - 3 D) Prevention of arterial thromboembolism including patients with mechanical heart valves: 3 - 4.5 Performed By: #### P P #### [facility] [address] [place] [address] [place] Ketones [Presence] in Urine by Test stripOrdered By: PROVIDER TEMP on 10-09-2023 Ketones Ql (U) Trace High Negative [facility] Comment on above: Order Comment: Name Collection Type:: Clean-Voided Midstream Performed By: #### C UU, ADDONUAPLUS #### [facility] [address] [place] [id number] [place] Leukocyte esterase [Presence ] in Urine by Test stripOrdered By: PROVIDER TEMP on 10-09-2023 Leukocyte esterase Test strip Ql (U) 3+ High Negative [facility] Comment on above: Order Comment: Name Collection Type:: Clean-Voided Midstream Performed By: #### C UU, ADDONUAPLUS #### [facility] [address] [place] [id number] [place] Leukocytes [#/area] in Urine sediment by Automated countOrdered By: PROVIDER TEMP on 10-09-2023 WBC Auto (Urine sed) [#/Area] 20-49 [HPF] High 0-4 [facility] Leukocytes [#/volume] correc lukas for nucleated erythrocytes in Blood by Automated counOrdered By: Lory Poon on 10-09-2023 WBC corrected for nucl RBC Auto (Bld) [#/Vol] 11.2 10*3/uL High 4.1-10.5 [facility] Leukocytes [#/volume] in Blo od by Automated countOrdered By: Lory Poon on 10-09-2023 WBC (Bld) [#/Vol] 11.2 10*3/uL High 4.1-10.[address] [facility] Comment on above: Performed By: #### C MP, CBC #### [facility] [address] [place] [address] [place] Lymphocytes [#/volume] in Bl ood by Automated countOrdered By: Lory Poon on 10-09-2023 Lymphocytes (Bld) [#/Vol] 0.7 10*3/uL Low 1.00-4.8 [facility] Comment on above: Performed By: #### C MP, CBC #### [facility] [address] [place] [address] [place] Lymphocytes/100 leukocytes i n Blood by Automated countOrdered By: Lory Poon on 10-09-2023 Lymphocytes/100 WBC (Bld) 6.6 % Normal . [facility] Comment on above: Performed By: #### C MP, CBC #### [facility] [address] [place] [address] [place] MCH [Entitic mass] by Automa lukas countOrdered By: Lory Poon on 10-09-2023 MCH (RBC) [Entitic mass] 32.3 pg Normal 27.5-35.2 [facility] Comment on above: Performed By: #### C MP, CBC #### [address] MCHC Auto (RBC) [Mass/Vol]Or dered By: Lory Poon on 10-09-2023 MCHC (RBC) [Mass/Vol] 34.0 g/dL 32.5-35.6 [facility] MCV [Entitic volume] by Auto mated countOrdered By: Lory Poon on 10-09-2023 MCV (RBC) [Entitic vol] 95.1 fL Normal 83.5-101 [facility] Comment on above: Performed By: #### C MP, CBC #### [facility] [address] Monocyte distribution width [Entitic volume] in Blood by AutomatedOrdered By: Lory Poon on 10-09-2023 Monocyte distribution width Auto (Bld) [Entitic vol] 26.96 % High 0.00-20.00 [facility] Comment on above: For adults in ED, MD W > 20.0 may be associated with a higher risk of sepsis during the first 12 hrs of hospital admission Mucus [Presence] in Urine by AutomatedOrdered By: PROVIDER TEMP on 10-09-2023 Mucus Auto Ql (U) Rare [LPF] [facility] Neutrophils [#/volume] in Bl ood by Automated countOrdered By: Lory Poon on 10-09-2023 Neutrophils (Bld) [#/Vol] 9.7 10*3/uL High 1.8-7.7 [facility] Comment on above: Performed By: #### C MP, CBC #### [facility] [address] [place] [address] Nitrite Test strip Ql (U)Ord ered By: PROVIDER TEMP on 10-09-2023 Nitrite Ql (U) Negative Negative [facility] No Panel InformationOrdered By: Lory Poon on 10-09-2023 Estimated GFR (CKD-EPI) > 60.0 mL/Min [facility] Creatinine Clearance (Chem 121.22 [facility] Nucleated erythrocytes [Pres ence] in Blood by Automated countOrdered By: Lory Poon on 10-09-2023 Nucleated RBC Auto Ql (Bld) 0.1 /100{WBC} 0-0.5 [facility] Platelet mean volume [Entiti c volume] in Blood by Automated countOrdered By: Lory Poon on 10-09-2023 Platelet mean volume (Bld) [Entitic vol] 7.1 fL Normal 6.6-10.1 [facility] Comment on above: Performed By: #### C MP, CBC #### [facility] [address] [place] [address] [place] Platelets [#/volume] in Bloo d by Automated countOrdered By: Lory Poon on 10-09-2023 Platelets (Bld) [#/Vol] 245 10*3/uL Normal 150-450 [facility] Comment on above: Performed By: #### C MP, CBC #### [place] [address] [place] Potassium [Moles/volume] in Serum or PlasmaOrdered By: Lory Poon on 10-09-2023 Potassium [Moles/Vol] 3.9 mmol/L Normal 3.5-5.1 [facility] Comment on above: Performed By: #### C MP, CBC #### [place] [address] [place] Protein [Mass/volume] in Ser um or PlasmaOrdered By: Lory Poon on 10-09-2023 Protein [Mass/Vol] 7.8 g/dL Normal 6.4-8.9 [facility] Comment on above: Performed By: #### C MP, CBC #### [place] [address] [place] Protein [Mass/volume] in Uri ne by Test stripOrdered By: PROVIDER TEMP on 10-09-2023 Protein (U) [Mass/Vol] 300 mg/dL High Negative [facility] Comment on above: Order Comment: Name Collection Type:: Clean-Voided Midstream Performed By: #### C UU, ADDONUAPLUS #### [place] [address] [place] Prothrombin time (PT)Ordered By: Max Contreras on 10-09-2023 PT Coag (PPP) [Time] 12.5 s Normal 9.0-12.9 [facility] Comment on above: A hematocrit value g reater than 55% may lead to inaccurate results in coagulation testing. Patients having hematocrit values >55% require a special collection tube for coagulation studies. Please contact the laboratory at [phone] for redraw instructions. Result Comment: A he matocrit value greater than 55% may lead to inaccurate results in coagulation testing. Patients having hematocrit values >55% require a special collection tube for coagulation studies. Please contact the laboratory at [phone] for redraw instructions. Performed By: #### P P #### [address] Serum globulin measurement b y calculation (mass/volume)Ordered By: Lory Poon on 10-09-2023 Globulin (S) [Mass/Vol] 3.5 g/dL [facility] Comment on above: Performed By: #### C MP, CBC #### [address] Serum or plasma albumin/glob ulin mass ratioOrdered By: Lory Poon on 10-09-2023 Albumin/Globulin [Mass ratio] 1.2 {ratio} [facility] Comment on above: Performed By: #### C MP, CBC #### [address] Serum or plasma anion gap de terminationOrdered By: Lory Poon on 10-09-2023 Anion gap [Moles/Vol] 13.9 mmol/L Normal 6.0-15.0 [facility] Comment on above: Performed By: #### C MP, CBC #### [address] Sodium [Moles/volume] in Ser um or PlasmaOrdered By: Lory Poon on 10-09-2023 Sodium [Moles/Vol] 131 mmol/L Low 136-145 [facility] Comment on above: Performed By: #### C MP, CBC #### [address] Specific gravity Test strip (U) [Rel density]Ordered By: PROVIDER TEMP on 10-09-2023 Specific gravity (U) [Rel density] 1.021 1.001-1.030 [facility] Urea nitrogen [Mass/volume] in Serum or PlasmaOrdered By: Lory Poon on 10-09-2023 Urea nitrogen [Mass/Vol] 14 mg/dL Normal 10-08 [facility] Comment on above: Performed By: #### C MP, CBC #### [facility] [address] [place] [address] Urine Cultureon 10-09-2023 Bacteria identified Cx Nom (U) >100,000 colonies/ml mixed bacterial skin contaminants 2 Days PERFORMED BY: [place] [address] PATHOLOGIST [facility] ANTONI CORONA M.D. Normal [facility] Comment on above: Performed By: #### C UU, ADDONUAPLUS #### [address] Urine appearanceOrdered By: PROVIDER TEMP on 10-09-2023 Appearance (U) Cloudy Critically abnormal Clear [facility] Comment on above: Order Comment: Name Collection Type:: Clean-Voided Midstream Performed By: #### C UU, ADDONUAPLUS #### [facility] [address] [place] [address] Urobilinogen Test strip (U) [Mass/Vol]Ordered By: PROVIDER TEMP on 10-09-2023 Urobilinogen (U) [Mass/Vol] 4 mg/dL High Normal [facility] pH of Urine by Test stripOrd ered By: PROVIDER TEMP on 10-09-2023 pH (U) 6.5 [pH] Normal 5.0-9.0 [facility] Comment on above: Order Comment: Name Collection Type:: Clean-Voided Midstream Performed By: #### C UU, ADDONUAPLUS #### [address] Ambulatory Visit Summaryon 0 06-03-2023 Ambulatory Visit Summary HERMILOMAXPATRICK L :1960 Visit Date:06/03/2023 Ambulatory Visit Instructions Your Diagnosis Serrated adenoma of colon Your Care Team Attending Physician - CUCA STRONG, Benjamin Wagner Primary Care Physician - NILDA CHEEMA CNP This Is Your Medications List Contact prescribing physician if questions or concerns albuterol (Albuterol (Eqv-ProAir HFA)) aspirin (aspirin 81 mg Chew Tab) fluticasone/umeclidinium/v ilanterol (Trelegy Ellipta 100 mcg-62.5 mcg-25 mcg inhalation powder) lisinopril (lisinopril 20 mg Tab) metformin (metformin 1000 mg Tab) Procedures Performed Colonoscopy (05/21/2023), Colonoscopy (04/12/2020), Repair of umbilical hernia. What to do next Scheduled Follow-Up Appointments Friday. 2023 1:20 PM EDT With: SHIRLEY ESTRADA PA-C Where: [facility] General Surgery Office/Clini c Noteon 06-03-2023 [...] inactivated - Not Given Patient Refuses Normal [facility] Comment on above: Result Comment: Elec tronically Signed By: CUCA STRONG, Benjamin Cohn\Date and Time Signed: 06/03/23 14:10 EDT Reminderson 06-03-2023 Reminders - From: Peggy Conklin LPN To: N - Clinical; Sent: 06/03/2023 14:02:01 EDT Show up: 04/22/2026 07:00:00 EST Subject: colonoscopy recall Due Date/Time: 05/20/2026 07:00:00 EST Reminder/Recall Patient due for surveillance colonoscopy 05/20/2026 due to history of multiple serrated polyps. Normal [facility] Outside Colonoscopyon 2023 Outside Colonoscopy [id number]#[id number] Normal [facility] Pathology Noteon 05-29-2023 Pathology Note [id number]#[id number] Normal [facility] Lab Reportson 05-22-2023 Lab Reports [id number]#[id number] Normal [facility] [place] 05-21-2023 L Specimen: [id number] Received: 05/21/23 Status: SOUKyleigh Req Num: [id number] Spec Type: Surgical Subm Dr: Benjamin Thurman MD FACS Tissues: A Colon Biopsy (SIGMOID POLYP X2) B Colon Biopsy (DISTAL SIGMOID POLYP X3) C Colon Biopsy (BX INFLAMED SIGMOID MUCOSA) Procedures: HE/6, Gross/Micro L4/3 Age/ Patient Sex Location Account Attending Physician Avel Akhtar 63/M [place] [id number] Benjamin Thurman MD FACS SPEC NUM: [id number] RECD: 05/21/23 STATUS: SOU REQ NUM: [id number] TAMI: 05/21/[address]: Benjamin Thurman MD FACS ENTERED: 05/21/[address] [facility] [address]: Marla,Neil SPEC TYPE: Surgical DEPT: KEMI MIRANDA ORDERED: HE/6, Gross/Micro L4/3 ORDERED: HE/6, Gross/Micro [...] submitted in one cassette labeled B1. Specimen: [id number] Received: 05/21/23 Status: ANNABELLA [place] Num: [id number] Spec Type: Surgical Subm Dr: Benjamin Thurman MD FACS Tissues: A Colon Biopsy (SIGMOID POLYP X2) B Colon Biopsy (DISTAL SIGMOID POLYP X3) C Colon Biopsy (BX INFLAMED SIGMOID MUCOSA) Procedures: HE/Joanna, Gross/Micro L4/3 Patient: HermiloAvel L [id number] (Continued) Specimen: [id number] Received: 05/21/23 (Continued) Gross Description (Continued) Signed (signature on file) Adolfo Estes MD 05/26/23 1336 Specimen: [id number] Received: 05/21/23 Status: ANNABELLA Valentin Num: [id number] Spec Type: Surgical Subm Dr: Benjamin Thurman MD FACS Tissues: A Colon Biopsy (SIGMOID POLYP X2) B Colon Biopsy (DISTAL SIGMOID POLYP X3) C Colon Biopsy (BX INFLAMED SIGMOID MUCOSA) Procedures: NALLELY/Joanna, Mic/Aileen L4/3 Patient: Avel Akhtar [id number] (Continued) Specimen: [id number] Received: 05/21/23 (Continued) Gross Description (Continued) C. Received in formalin labeled with the patient's name, date of and biopsy of inflamed sigmoid mucosa are three mac tissues ranging from 0.1 cm to 0.4 x 0.3 x 0.2 cm. Entirely submitted in one cassette labeled C1. CPT Codes 42634q0 Specimen: [id number] Received: 05/21/23 Status: ANNABELLA Valentin Num: [id number] Spec Type: Surgical Subm Dr: Benjamin Thurman MD FACS Tissues: A Colon Biopsy (SIGMOID POLYP X2) B Colon Biopsy (DISTAL SIGMOID POLYP X3) C Colon Biopsy (BX INFLAMED SIGMOID MUCOSA) Procedures: NALLELY/Joanna, Gross/Micro L4/3 Patient: Avel Akhtar [id number] (Continued) Signed (signature on file) Adolfo Estes MD 05/26/23 1336 Normal [facility] Consent for Procedure/Surger yon 05-08-2023 Consent for Procedure/Surgery [id number]#[id number] [facility] Facesheeton 05-07-2023 Facesheet [id number]#[id number] [facility] Ambulatory Visit Summaryon 0 2023 Ambulatory Visit Summary PATRICK AKHTAR Radha :1960 Visit Date:2023 Ambulatory Visit Instructions Your Care Team Attending Physician - CUCA STRONG, Benjamin Wagner Primary Care Physician - NILDA HCEEMA CNP Referring Physician - NILDA CHEEMA CNP This Is Your Medications List Contact prescribing physician if questions or concerns albuterol (Albuterol (Eqv-ProAir HFA)) aspirin (aspirin 81 mg Chew Tab) fluticasone/umeclidinium/v ilanterol (Trelegy Ellipta 100 mcg-62.5 mcg-25 mcg inhalation [...] SHIRLEY ESTRADA PA-C Where: [facility] Physician Referralon 024 Physician Referral [id number]#1.00TIFF [facility] XR LSPINE 2_3 VIEWSon 2020 XR LSPINE 2_3 VIEWS EXAMINATION: XR LSPI NE 2_3 VIEWS HISTORY: Pain ; chronic lumbar [...] HEATHER HOBBS Date: 2021-01-09 11:33 Normal [facility] GLYCOHEMOGLOBIN A1Con 2020 ADA RECOMMENDATION ADA THERAPEUTIC TARG ET 6.0 - 7.0 ACTION SUGGESTED > 7.0 Normal [facility] Comment on above: Performed By: #### A 1C #### Laboratory [address] [place] [address] Edward Fajardo Glucose [Mass/Vol] 123 mg/dL Normal [facility] Comment on above: Performed By: #### A 1C #### Laboratory [address] [place], [place] [address] Edward Fajardo HbA1c (Bld) [Mass fraction] 5.9 % Normal <=6.0 [facility] Comment on above: Performed By: #### A 1C #### Laboratory [address] [place], [place] [address] Edward Fajardo Covid-19 PCR (CVDTBH)on 03-18 EUA Statement SEE BELOW Normal [facility] Comment on above: Result Comment: This test is not yet approved or cleared by the [place] FDA. When there are no FDA-approved or cleared tests available, and other criteria are met, FDA can make tests available under an emergency access mechanism called an Emergency Use Authorization (EUA). The EUA for this test is supported by the [place] of Health and Human Service?s (HHS?s) declaration [...] SARS-CoV-2. Performed By: #### C VDTB #### Laboratory [address] [place] [address] Edward Fajardo SARS-CoV-2 (COVID-19) RNA ADELFO+probe Ql (Unsp spec) Not detected Normal NOT DETECTED The Comment on above: Result Comment: This test is not yet approved or cleared by the [place] FDA. When there are no FDA-approved or cleared tests available, and other criteria are met, FDA can make tests available under an emergency access mechanism called an Emergency Use Authorization (EUA). The EUA for this test is supported by the [place] of Health and Human Service's (HHS's) declaration [...] longer be used). Performed By: #### C VDTB #### Laboratory [address] [place] [address] Edward Fajardo GLYCOHEMOGLOBIN A1Con 2019 Glucose [Mass/Vol] 123 mg/dL Normal The Comment on above: Performed By: #### A 1C #### Laboratory [address] [place] [address] Edward Fajardo HbA1c (Bld) [Mass fraction] 5.9 % Normal <=6.0 [facility] Comment on above: Performed By: #### A 1C #### Laboratory [address] [place] [address] ABD/PELV W CONon 03-03-[address] ABD/PELV W CON EXAMINATION: CT ABD/ PELV W CON HISTORY: Diverticulitis ; acute left [...] HEATHER HOBBS Date: 2020-03-03 09:23 Normal The CBC AUTO DIFFon 02-24-2020 BASO # 0.1 103/ul Normal 0.0-0.1 The Comment on above: Performed By: #### C BC #### Laboratory [address] [place], [place] [address] Edward Fajardo Basophils/100 WBC (Bld) 0.7 % Normal 0.2-2.0 [facility] Comment on above: Performed By: #### C BC #### Laboratory [address] [place], [place] [address] Edward Fajardo EO # 0.1 103/ul Normal 0.0-0.7 [facility] Comment on above: Performed By: #### C BC #### Laboratory [address] [place], [place] [address] Edward Tana Eosinophils/100 WBC (Bld) 1.2 % Normal 0.9-7.0 [facility] Comment on above: Performed By: #### C BC #### Laboratory [address] [place] [address] Edward Tana Erythrocyte distribution width (RBC) [Ratio] 13.1 % Normal 11.0-15.0 [facility] Comment on above: Performed By: #### C BC #### Laboratory [address] [place] [address] Edward Tana Hematocrit (Bld) [Volume fraction] 56.4 % Critically high 42.0-54.0 [facility] Comment on above: Performed By: #### C BC #### Laboratory [address] [place] [address] Edward Tana Hemoglobin (Bld) [Mass/Vol] 19.2 g/dL Critically high 14.0-18.0 The Comment on above: Performed By: #### C BC #### Laboratory [address] [place] [address] Edward Tana IG # 0.06 10e3/ul Critically high 0.00-0.03 [facility] Comment on above: Performed By: #### C BC #### Laboratory [address] [place] [address] Edward Tana IG % 0.6 % Critically high 0.0-0.5 The Comment on above: Performed By: #### C BC #### Laboratory [address] [place] [address] Edward Tana LYMPH # 2.3 103/ul Normal 1.2-3.8 The Comment on above: Performed By: #### C BC #### Laboratory [address] [place] [address] Edward Tana Lymphocytes/100 WBC (Bld) 23.2 % Normal 20.5-60.0 [facility] Comment on above: Performed By: #### C BC #### Laboratory [address] [place], [place] [address] Edward Tana MANUAL DIFF REQ NO Normal The Comment on above: Performed By: #### C BC #### Laboratory [address] [place], [place] [address] Edwardfrankie Fajardo MCH (RBC) [Entitic mass] 32.9 pg Normal 25.9-34.0 The Comment on above: Performed By: #### C BC #### Laboratory [address] [place], [place] [address] Edwardfrankie Fajardo MCHC (RBC) [Mass/Vol] 34.0 g/dL Normal 29.9-35.2 The Comment on above: Performed By: #### C BC #### Laboratory [address] [place], [place] [address] Edward Tana MCV (RBC) [Entitic vol] 96.7 fL Critically high 80.0-94.0 [facility] Comment on above: Performed By: #### C BC #### Laboratory [address] [place], [place] [address] Edward Tana MONO # 0.9 103/ul Critically high 0.3-0.8 [facility] Comment on above: Performed By: #### C BC #### Laboratory [address] [place], [place] [address] Edward Tana Monocytes/100 WBC (Bld) 8.9 % Normal 1.7-12.0 The Comment on above: Performed By: #### C BC #### Laboratory [address] [place], [place] [address] Edward Tana NEUT # 6.6 103/ul Critically high 1.4-6.5 The Comment on above: Performed By: #### C BC #### Laboratory [address] [place], [place] [address] Edward Tana Neutrophils/100 WBC (Bld) 65.4 % Normal 43.0-75.0 The Comment on above: Performed By: #### C BC #### Laboratory [address] [place] [address] Edward Tana Platelet mean volume (Bld) [Entitic vol] 9.5 fL Normal 9.5-13.5 [facility] Comment on above: Performed By: #### C BC #### Laboratory [address] [place], [place] [address] Edward Tana PLT 276 103/ul Normal 150-450 The Comment on above: Performed By: #### C BC #### Laboratory [address] [place], [place] [address] Edward Tana RBC 5.83 106/ul Normal 4.70-6.10 The Comment on above: Performed By: #### C BC #### Laboratory [address] [place], [place] [address] Edward Tana WBC 10.0 103/ul Normal 4.0-11.0 [facility] Comment on above: Performed By: #### C BC #### Laboratory [address] [place], [place] [address] Edward Fajardo PROF 14(COMP METB)on 020 Albumin [Mass/Vol] 3.3 g/dL Critically low 3.5-5.0 [facility] Comment on above: Performed By: #### C MP #### Laboratory [address] [place], [place] [address] Edward Tana Albumin/Globulin [Mass ratio] 0.8 {ratio} Normal The Comment on above: Performed By: #### C MP #### Laboratory [address] [place], [place] [address] Edward Tana ALP [Catalytic activity/Vol] 100 U/L Normal 38-126 The Comment on above: Performed By: #### C MP #### Laboratory [address] [place], [place] [address] Edward Tana ALT [Catalytic activity/Vol] 34 U/L Normal 21-72 The Comment on above: Performed By: #### C MP #### Laboratory [address] [place], [place] [address] Edward Tana Anion gap [Moles/Vol] 13.8 mmol/L Normal Th e Comment on above: Performed By: #### C MP #### Laboratory [address] [place] [address] Edward Tana AST [Catalytic activity/Vol] 23 U/L Normal 17-59 The Comment on above: Performed By: #### C MP #### Laboratory [address] [place] [address] Edward Tana Bilirubin [Mass/Vol] 0.2 mg/dL Normal 0.2-1.3 The Comment on above: Performed By: #### C MP #### Laboratory [address] [place] [address] Edward Tana Calcium [Mass/Vol] 9.7 mg/dL Normal 8.4-10.2 [facility] Comment on above: Performed By: #### C MP #### Laboratory [address] [place] [address] Edward Tana Chloride [Moles/Vol] 105 mmol/L Normal 98-107 [facility] Comment on above: Performed By: #### C MP #### Laboratory [address] [place] [address] Edward Tana CO2 [Moles/Vol] 25.3 mmol/L Normal 22.0-30.0 [facility] Comment on above: Performed By: #### C MP #### Laboratory [address] [place] [address] Edward Tana Creatinine [Mass/Vol] 0.91 mg/dL Normal 0.66-1.25 The Comment on above: Performed By: #### C MP #### Laboratory [address] [place] [address] Edward Tana EGFR-AF CYMRAES >60 Normal >=60 The Comment on above: Performed By: #### C MP #### Laboratory [address] [place] [address] Edward Tana EGFR-NON AF CYMRAES >60 Normal >=60 The Comment on above: Performed By: #### C MP #### Laboratory [address] [id number] Edward Tana Globulin (S) [Mass/Vol] 4.2 g/dL Normal [facility] Comment on above: Performed By: #### C MP #### Laboratory [address] [place] [address] Edward Tana Glucose [Mass/Vol] 127 mg/dL Critically high 74-106 [facility] Comment on above: Performed By: #### C MP #### Laboratory [address] [place] [address] Edward Tana Potassium [Moles/Vol] 4.1 mmol/L Normal 3.4-5.0 [facility] Comment on above: Performed By: #### C MP #### Laboratory [address] [place] [address] Edward Tana Protein [Mass/Vol] 7.5 g/dL Normal 6.1-8.2 [facility] Comment on above: Performed By: #### C MP #### Laboratory [address] [place] [address] Edward Tana Sodium [Moles/Vol] 140 mmol/L Normal 137-145 [facility] Comment on above: Performed By: #### C MP #### Laboratory [address] [place] [address] Edward Tana Urea nitrogen [Mass/Vol] 12.0 mg/dL Normal 9.0-20.0 [facility] Comment on above: Performed By: #### C MP #### Laboratory [address] [place] [address] Edward Tana Urea nitrogen/Creatinine [Mass ratio] 13.2 mg/mg Normal [facility] Comment on above: Performed By: #### C MP #### Laboratory [address] [place], [place] [id number] Edward Tana CBC AUTO DIFFon 02-01-2020 BASO # 0.1 103/ul Normal 0.0-0.1 [facility] Comment on above: Performed By: #### C BC #### Laboratory [address] [id number] Edward Tana Basophils/100 WBC (Bld) 0.4 % Normal 0.2-2.0 The Comment on above: Performed By: #### C BC #### Laboratory [address] [place] [address] Edward Tana EO # 0.1 103/ul Normal 0.0-0.7 The Comment on above: Performed By: #### C BC #### Laboratory [address] [place] [address] Edward Tana Eosinophils/100 WBC (Bld) 0.9 % Normal 0.9-7.0 The Comment on above: Performed By: #### C BC #### Laboratory [address] [place] [address] Edward Tana Erythrocyte distribution width (RBC) [Ratio] 13.3 % Normal 11.0-15.0 The Comment on above: Performed By: #### C BC #### Laboratory [address] [place] [address] Edward Tana Hematocrit (Bld) [Volume fraction] 55.7 % Critically high 42.0-54.0 The Comment on above: Performed By: #### C BC #### Laboratory [address] [place] [address] Edward Tana Hemoglobin (Bld) [Mass/Vol] 18.9 g/dL Critically high 14.0-18.0 The Comment on above: Performed By: #### C BC #### Laboratory [address] [place] [address] Edward Tana IG # 0.05 10e3/ul Critically high 0.00-0.03 The Comment on above: Performed By: #### C BC #### Laboratory [address] [place] [address] Edward Tana IG % 0.4 % Normal 0.0-0.5 The Comment on above: Performed By: #### C BC #### Laboratory [address] [place] [address] Edward Tana LYMPH # 1.5 103/ul Normal 1.2-3.8 [facility] Comment on above: Performed By: #### C BC #### Laboratory [address] [place], [place] [id number] Edward Fajardo Lymphocytes/100 WBC (Bld) 10.8 % Critically low 20.5-60.0 [facility] Comment on above: Performed By: #### C BC #### Laboratory [address] [place] [address] Edward Fajardo MANUAL DIFF REQ NO Normal [facility] Comment on above: Performed By: #### C BC #### Laboratory [address] [place] [address] Edward Fajardo MCH (RBC) [Entitic mass] 33.1 pg Normal 25.9-34.0 [facility] Comment on above: Performed By: #### C BC #### Laboratory [address] [place] [address] Edward Fajardo MCHC (RBC) [Mass/Vol] 33.9 g/dL Normal 29.9-35.2 [facility] Comment on above: Performed By: #### C BC #### Laboratory [address] [place] [address] Edward Fajardo MCV (RBC) [Entitic vol] 97.5 fL Critically high 80.0-94.0 [facility] Comment on above: Performed By: #### C BC #### Laboratory [address] [place] [address] Edwardfrankie Wilkinsen MONO # 1.1 103/ul Critically high 0.3-0.8 The Comment on above: Performed By: #### C BC #### Laboratory [address] [place] [address] Edward Fajardo Monocytes/100 WBC (Bld) 8.0 % Normal 1.7-12.0 [facility] Comment on above: Performed By: #### C BC #### Laboratory [address] [place] [address] Edward Tana NEUT # 11.1 103/ul Critically high 1.4-6.5 [facility] Comment on above: Performed By: #### C BC #### Laboratory [address] [place], [place] [id number] Edward Fajardo Neutrophils/100 WBC (Bld) 79.5 % Critically high 43.0-75.0 [facility] Comment on above: Performed By: #### C BC #### Laboratory [address] [place], [place] [id number] Edward Fajardo Platelet mean volume (Bld) [Entitic vol] 10.1 fL Normal 9.5-13.5 [facility] Comment on above: Performed By: #### C BC #### Laboratory [address] [place], [place] [id number] Edward Fajardo PLT 280 103/ul Normal 150-450 [facility] Comment on above: Performed By: #### C BC #### Laboratory [address] [place], [place] [id number] Edward Tana RBC 5.71 106/ul Normal 4.70-6.10 [facility] Comment on above: Performed By: #### C BC #### Laboratory [address] [place], [place] [id number] Edwardfrankie Fajardo WBC 13.9 103/ul Critically high 4.0-11.0 [facility] Comment on above: Performed By: #### C BC #### Laboratory [address] [place], [place] [id number] Edward Fajardo PROF 14(COMP METB)on 020 Albumin [Mass/Vol] 3.0 g/dL Critically low 3.5-5.0 [facility] Comment on above: Performed By: #### C MP #### Laboratory [address] [place], [place] [id number] Edward Fajardo Albumin/Globulin [Mass ratio] 0.7 {ratio} Normal [facility] Comment on above: Performed By: #### C MP #### Laboratory [address] [place], [place] [id number] Edward Fajardo ALP [Catalytic activity/Vol] 86 U/L Normal 38-126 The Comment on above: Performed By: #### C MP #### Laboratory [address] [id number] Edward Tana ALT [Catalytic activity/Vol] 49 U/L Normal 21-72 The Comment on above: Performed By: #### C MP #### Laboratory [address] [id number] Edward Tana Anion gap [Moles/Vol] 11.2 mmol/L Normal Th e Comment on above: Performed By: #### C MP #### Laboratory [address] [address] Edward Tana AST [Catalytic activity/Vol] 28 U/L Normal 17-59 The Comment on above: Performed By: #### C MP #### Laboratory [address] [place] [address] Edward Tana Bilirubin [Mass/Vol] 0.6 mg/dL Normal 0.2-1.3 The Comment on above: Performed By: #### C MP #### Laboratory [address] [place] [address] Edward Tana Calcium [Mass/Vol] 9.4 mg/dL Normal 8.4-10.2 The Comment on above: Performed By: #### C MP #### Laboratory [address] [place] [address] Edward Tana Chloride [Moles/Vol] 102 mmol/L Normal 98-107 The Comment on above: Performed By: #### C MP #### Laboratory [address] [place] [address] Edward Tana CO2 [Moles/Vol] 28.1 mmol/L Normal 22.0-30.0 The Comment on above: Performed By: #### C MP #### Laboratory [address] [place] [address] Edward Tana Creatinine [Mass/Vol] 0.70 mg/dL Normal 0.66-1.25 The Comment on above: Performed By: #### C MP #### Laboratory [address] [id number] Edward Tana EGFR-AF CYMRAES >60 Normal >=60 [facility] Comment on above: Performed By: #### C MP #### Laboratory [address] [id number] Edward Tana EGFR-NON AF CYMRAES >60 Normal >=60 [facility] Comment on above: Performed By: #### C MP #### Laboratory [address] [id number] Edward Tana Globulin (S) [Mass/Vol] 4.6 g/dL Normal [facility] Comment on above: Performed By: #### C MP #### Laboratory [address] [place], [place] [address] Edward Tana Glucose [Mass/Vol] 126 mg/dL Critically high 74-106 [facility] Comment on above: Performed By: #### C MP #### Laboratory [address] [place] [address] Edward Tana Potassium [Moles/Vol] 3.3 mmol/L Critically low 3.4-5.0 [facility] Comment on above: Performed By: #### C MP #### Laboratory [address] [place], [place] [address] Edward Tana Protein [Mass/Vol] 7.6 g/dL Normal 6.1-8.2 [facility] Comment on above: Performed By: #### C MP #### Laboratory [address] [place], [place] [address] Edward Tana Sodium [Moles/Vol] 138 mmol/L Normal 137-145 The Comment on above: Performed By: #### C MP #### Laboratory [address] [place], [place] [address] Edward Tana Urea nitrogen [Mass/Vol] 9.0 mg/dL Normal 9.0-20.0 The Comment on above: Performed By: #### C MP #### Laboratory [address] [place], [place] [address] Edward Tana Urea nitrogen/Creatinine [Mass ratio] 12.9 mg/mg Normal [facility] Comment on above: Performed By: #### C MP #### Laboratory [address] [place], [place] [address] Edward Fajardo Vital Signs Date Time Vital Sign Value Performing Clinician Facility 10-09-2023 18:39-0400 Body temperature 98.7 [degF] Nilda Aichholz Work Phone: [facility] 10-09-2023 18:39-0400 Diastolic blood pressure 72 mm[Hg] Nilda Aichholz Work Phone: [facility] 10-09-2023 18:39-0400 Heart rate 106 /min Nilda Aichholz Work Phone: [facility] 10-09-2023 18:39-0400 Respiratory rate 20 /min Nilda Aichholz Work Phone: [facility] 10-09-2023 18:39-0400 SaO2% (BldA) [Mass fraction] 96 % Nilda Aichholz Work Phone: [facility] 10-09-2023 18:39-0400 Systolic blood pressure 109 mm[Hg] Nilda Aichholz Work Phone: [facility] 10-09-2023 13:46-0400 Body height 179.07 cm Nilda Aichholz Work Phone: [facility] 10-09-2023 13:46-0400 Body weight 105.9 kg Nilda Aichholz Work Phone: [facility] 2023 13:19-0500 Blood Pressure Location Benjamin THURMAN [facility] 2023 13:19-0500 Diastolic blood pressure 84 mm[Hg] Benjamin THURMAN [facility] 2023 13:19-0500 Heart rate 76 /min Benjamin THURMAN [facility] 2023 13:19-0500 Respiratory rate 16 /min Benjamin THURMAN [facility] 2023 13:19-0500 Systolic blood pressure 132 mm[Hg] Benjamin THURMAN [facility] 12-03-2022 11:30-0400 Body height 177.8 cm Verna Ordoñez Other [facility] Other 12-03-2022 11:30-0400 Body mass index (BMI) [Ratio] 35.55 kg/m2 Verna Ordoñez Other [facility] Other 12-03-2022 11:30-0400 Body temperature 97.3 [degF] Verna Ordoñez Other [facility] Other 12-03-2022 11:30-0400 Body weight 112.4 kg Verna Ordoñez Other [facility] Other 12-03-2022 11:30-0400 Diastolic blood pressure 98 mm[Hg] Verna Ordoñez Other [facility] Other 12-03-2022 11:30-0400 Respiratory rate 18 /min Verna Ordoñez Other [facility] Other 12-03-2022 11:30-0400 SaO2% (BldA) [Mass fraction] 93 % Verna Ordoñez Other [facility] Other 12-03-2022 11:30-0400 Systolic blood pressure 148 mm[Hg] Verna Ordoñez Other [facility] Other Encounters Encounter Date Encounter Type Care Provider Facility Start: 10-20-2023 End: 10-20-2023 ambulatory NILDA AICHHOLZ Not Available Start: 10-09-2023 End: 10-09-2023 Emergency department patient visit Nilda Aichholz Work Phone: [facility] Work Phone: Start: 09-29-2023 End: 09-29-2023 ambulatory NILDA AICHHOLZ Not Available Start: 07-29-2023 End: 07-30-2023 ambulatory SHIRLEY ESTRADA Facility:[facility] Start: 07-29-2023 End: 07-29-2023 Patient encounter procedure SHIRLEY ESTRADA [facility] Start: 06-30-2023 End: 06-30-2023 ambulatory NILDA AICHHOLZ Not Available Start: 06-03-2023 End: 06-04-2023 ambulatory Benjamin R NILL Facility:[facility] Start: 06-03-2023 End: 06-03-2023 Patient encounter procedure Benjamin R NILL [facility] Start: 05-21-2023 End: 05-22-2023 ambulatory Benjamin R NILL Facility:[facility] Start: 2023 End: 05-07-2023 ambulatory Benjamin R NILL Facility:[facility] Start: 2023 End: 2023 Patient encounter procedure Benjamin R NILL [facility] Start: 04-15-2023 ambulatory SHIRLEY ESTRADA Facility :[facility] Start: 03-31-2023 End: 03-31-2023 ambulatory NILDA AICHHOLZ Not Available Start: 02-17-2023 End: 02-17-2023 ambulatory NILDA AICHHOLZ Not Available Start: 12-03-2022 End: 12-03-2022 ambulatory Verna Ordoñez Other [facility] Other Start: 12-03-2022 Office outpatient ne w 30 minutes Verna Ordoñez [facility] Start: 01-09-2021 End: 01-09-[address] HEATHER HOBBS Facility:[facility] Start: 07-17-2020 End: 07-18-2020 ambulatory PLASTICS SCIENTIST NILDA AICHHOLZ Facility:[facility] Start: 04-13-2020 Encounter for preprocedural laboratory examination DR BENJAMIN THURMAN [facility] Start: 04-12-2020 End: 04-12-2020 ambulatory PLASTICS SCIENTIST NILDA AICHHOLZ Facility:[facility] Start: 04-08-2020 End: 04-09-2020 ambulatory PLASTICS SCIENTIST NILDA AICHHOLZ Facility:[facility] Start: 04-08-2020 End: 04-09-2020 Encounter for preprocedural laboratory examination PLASTICS SCIENTIST NILDA AICHHOLZ Facility:[facility] Start: 03-15-2020 End: 03-16-2020 ambulatory PLASTICS SCIENTIST NILDA AICHHOLZ Facility:[facility] Start: 03-03-2020 End: 03-04-2020 ambulatory PLASTICS SCIENTIST NILDA AICHHOLZ Facility:[facility] Start: 02-24-2020 End: 02-25-2020 ambulatory PLASTICS SCIENTIST NILDA AICHHOLZ Facility:[facility] Start: 02-01-2020 End: 02-02-2020 ambulatory PLASTICS SCIENTIST NILDA AICHHOLZ Facility:[facility] Procedures Date Procedure Procedure Detail Performing Clinician Start: 10-09-2023 CT of abdomen and pe lvis without contrast Nilda Aichholz Work Phone: Start: 05-21-2023 Colonoscopy Benjamin ARCHIBALD Start: 04-12-2020 Colonoscopy Benjamin ARCHIBALD Repair of umbilical hernia Suellen THURMAN Plan of Treatment Date Care Activity Detail Author Start: 10-09-2023 Bacteria identified in Urine by Culture [facility] Patient Education Diverticulitis [facility] Work Phone: Patient referral [facility] Work Phone: Immunizations Immunization Date Immunization Notes Care Provider Fa cility NEGATED: Highlighted row has not occurred!2023 influenza virus vaccine, unspecified formulation Benjamin BONILLARadha [facility] Payers Date Payer Category Payer Self-pay 2023 Private Health Insurance [id number] 1960 Unknown [id number] 2.16.84 [id number] 1960 Unknown [id number] 2.16.84 0.1.302160.3.579.2.593 1961 Unknown [id number] 2.16.84 0.1.284069.3.579.2.593 1961 Unknown [id number] 2.16.84 0.1.184839.3.579.2.593 1961 Unknown [id number] 2.16.84 0.1.256294.3.579.2.593 1961 Unknown [id number] 2.16.84 0.1.547498.3.579.2.593 1961 Unknown [id number] 2.16.84 0.1.867057.3.579.2.593 1961 Unknown [id number] 2.16.84 0.1.090981.3.579.2.593 1961 Unknown [id number] 2.16.8 40.1.289932.3.579.2.727 1961 Unknown [id number] 2.16.8 40.1.431020.3.579.2.727 1961 Unknown [id number] 2.16.8 40.1.337473.3.579.2.727 1961 Unknown [id number] 2.16.8 40.1.770599.3.579.2.727 1961 Unknown [id number] 2.16.84 0.1.960824.3.579.2.1259 1961 Unknown [id number] 2.16.84 0.1.959229.3.579.2.1259 1961 Unknown [id number] 2.16.84 0.1.038651.3.579.2.9 1961 Unknown [id number] 2.16.84 0.1.571348.3.579.2.1259 1961 Unknown [id number] 2.16.840 .1.028681.3.579.2.1259 1958 Private Health Insurance [id number] 1958 Unknown [id number] Unknown [id number] 2.16.8 40.1.927413.3.579.2.531 Social History Date Type Detail Facility Unknown if ever smoked [facility] Other Sex Assigned At [facility] Start: 2023 Tobacco smoking status Heavy t obacco smoker (finding) [facility] Tobacco smoking status Never [facility] Start: 10-09-2023 Tobacco smoking stat [facility] Smoker (finding) [facility] Start: 1960 Sex Assigned At Male F [facility] Functional Status Date Assessment Result Facility 2023 Functional Status N/A General [facility] Clinical Note 2023 Note Date & Type [...] E&M of Est. Patient Low 20-29 Min [id number] Follow-up No qualifying data available Problem List/Past [...] Immunizations Vaccine Date (more content not included)... [facility] Comment on above: Result Comment: Elec tronically Signed By: CUCA STRONG, Benjamin Cohn\Date and Time Signed: 05/06/23 13:49 EST Evaluation note 09-19-2023 Note Date & Type Note Facility 12-03-2022 Evaluation note Encounter Date Diagnosis Assessment Notes Nov, COPD exacerbation (ICD-10 - J44.1) Patient declines COVID testing. Discussed with patient exam is consistent with COPD exacerbation. Discussed likely started as viral URI. Covering with azithromycin given comorbidity of COPD. Finish entire course. May use Mucinex DM [id number] . Prednisone burst and as needed albuterol inhaler sent. Follow-up with PCP for recheck in the next 5 to 7 days, sooner if significantly worsening. Discussed with chronic condition of COPD is important he follows up regularly with PCP. Encouraged to quit smoking. Patient verbalized understanding of treatment plan. [facility] Other Clinical Note 04-12-2020 Note Date & [...] sent to Recovery Room in good condition. [facility] Signed and Approved by: DR BENJAMIN THURMAN . 04/13/2020 09:02:00 The Evaluation + Plan note Note Date & Type Note Facility Evaluation + Plan note Future Appointments Appointment Date:07/29/2023 01:20:00 PM Scheduled Provider:SHIRLEY ESTRADA PA-C Location:[facility] Appointment Type:URO New Patient [facility] Evaluation note Note Date & Type Note Facility [facility] note [facility] Narrative Note Date & Type Note Facility Hospital course Narrative No data available for this section [facility] Discharge instructions Note Date & Type Note Facility Hospital Discharge instructions No data available for this section [facility] Discharge instructions Note Date & Type Note Facility Hospital Discharge instructions Additional Instructions Push fluids Rest Zofran for nausea vomiting [place] for severe pain You cannot work or drive when taking [place] Tylenol if needed for minor pain Take antibiotic as instructed until gone Return here if any problems persist or worsen as discussed including fever, chills, increased pain or any other concern [facility] Work Phone: Progress note Note Date & Type Note Facility Progress note No data available for this section [facility] Summary Purpose Family History No Family History Records Found No data available for this section No data available for this section No data available for this section No Family History Records FoundNo Family History Records FoundNo Family History Records Found Advance Directives No Advanced Directives Records Found Advance Directive Response Recorded Date/ Time Advance Directives No October 08 6:45pm Chief Complaint and Reason for Visit Chief Complaint blood in urine Additional Source Comments (unrecognized sect ion and content) No Status Records FoundNo Status Records FoundNo Status Records FoundNo Status Records Found INFORMATION SOURCE (unrecogn ized section and content) DATE CREATED AUTHOR 01/12/2021 [facility] DATE CREATED AUTHOR AUTHOR'S ORGANIZ ATION 08/01/2023 [facility] DATE CREATED AUTHOR AUTHOR'S ORGANIZ ATION 10/21/2023 [facility] DATE CREATED AUTHOR AUTHOR'S ORGANIZ ATION 10/25/2023 [facility] REASON FOR VISIT (unrecogniz ed section and content) COUGH, CONGESTION, OUT OF BR EATH Patient Care team informatio n (unrecognized section and content) Team Status: Active Member Role Status Dates Nilda Cheema Primary Care Provider Active Team Status: Inactive Member Role Status Dates Nilda Cheema Primary Care Provider Active Sta rt: October 09, 2023 End: October 09, 2023 Lory Poon APRN Emergency Provider Active Start: October 09, 2023 End: October 09, 2023 Goals (unrecognized section and content) Goals may be documented in a n alternate section FOR RECORDS PERTAINING TO PATIENTS WHO ARE [...] BE BASED ON THE PRIMARY CLINICAL RECORDS. [facility] [employer] [facility]. provides no warranty or guarantee of the accuracy or completeness of information in this document.
[2023-10-30 07:34] LABS: Bilirubin Urine NEGATIVE (NEGATIVE); Blood Urine MODERATE (NEGATIVE); Clarity Urine CLEAR (CLEAR); Color Urine LT. YELLOW (YELLOW); Glucose Urine UA NEGATIVE (NEGATIVE); Ketones Urine NEGATIVE (NEGATIVE); Leukocyte Esterase Urine NEGATIVE (NEGATIVE); Nitrite Urine NEGATIVE (NEGATIVE); Protein Urine 30 mg/dL (NEG/TRACE); Specific Gravity Urine 1.015 (1.005-1.025); Urobilinogen Urine 0.2 EU/dL (0.2-1.0)
[2023-10-30 07:37] LABS: Urine Microscopic Indicated YES
[2023-10-30 07:50] LABS: Bacteria Urine NONE SEEN #/HPF (NONE SEEN); Cast Seen? NONE SEEN #/LPF (NONE SEEN); Crystals Seen? None Seen #/HPF (None Seen); Mucus Urine NONE SEEN (NONE SEEN); Squamous Epithelial Cell Urine FEW #/LPF (NONE/RARE); WBC Urine 0-2 #/HPF (NONE SEEN)
== END 2023-10-30 07:03 | disposition home or self-care (01) ==
LOC: LAB 07:03
PROVIDERS: PCP Nurse Practitioner; Visit Provider Nurse Practitioner
DX: N39.0 Urinary tract infection, site not specified (principal); R31.29 Other microscopic hematuria
CPT/HCPCS: 81001; 87086